=== PATIENT | female | born 1955 | race Caucasian/White ===

== ENCOUNTER → 2020-03-22 10:27 | Outpatient (BNVA) | payer MEDICARE, SELFPAY | PROVIDERS: Visit Provider Psychiatry & Neurology Psychiatry | DX: F32.9 Major depressive disorder, single episode, unspecified (principal); F06.30 Mood disorder due to known physiological condition, unspecified; F51.13 Hypersomnia due to other mental disorder; F07.89 Other personality and behavioral disorders due to known physiological condition; E53.8 Deficiency of other specified B group vitamins; K90.9 Intestinal malabsorption, unspecified; G47.00 Insomnia, unspecified; S09.90XS Unspecified injury of head, sequela; E66.9 Obesity, unspecified; F09 Unspecified mental disorder due to known physiological condition; G31.89 Other specified degenerative diseases of nervous system; S06.9X9S Unspecified intracranial injury with loss of consciousness of unspecified duration, sequela; E55.9 Vitamin D deficiency, unspecified | CPT/HCPCS: 99205 ==

== ENCOUNTER 2020-03-22 13:48 | Outpatient (CLI) | payer MEDICARE, SELFPAY ==
[2020-03-22 14:38] LABS: Basophils # 0.1 10^3/uL (0.0-0.1); Basophils % 0.6 %; Eosinophils # 0.2 10^3/uL (0.0-0.8); Eosinophils % 2.2 %; Hematocrit 43.6 % (37.0-47.0); Hemoglobin 13.1 g/dL (11.5-15.3); Lymphocytes # 2.1 10^3/uL (0.8-4.8); Lymphocytes % 23.7 %; Mean Corpuscular Volume 93.2 fL (81-99); Monocytes # 0.6 10^3/uL (0.2-0.9); Monocytes % 6.1 %; Neutrophils % 67.1 %; Nucleated Red Blood Cells % 0 %; Platelet Count 227 10^3/cmm (130-400); Red Blood Count 4.68 10^6/uL (4.1-5.3); Red Cell Distribution Width 15.9 % (12.1-15.1)
[2020-03-22 15:48] LABS: 25 Hydroxy Vitamin D 13 ng/mL (30-100); Alanine Aminotransferase 10 U/L (0-33); Albumin Level 3.8 g/dL (3.5-5.2); Alkaline Phosphatase 98 IU/L (35-105); Aspartate Amino Transferase 10 U/L (0-32); Blood Urea Nitrogen 11 mg/dL (8-23); Calcium 9.5 mg/dL (8.5-10.5); Carbon Dioxide 32 mmol/L (22-29); Chloride 101 mmol/L (98-107); Chol HDL Ratio 2.11 mg/dL (0.0-4.40); Cholesterol 120 mg/dL (0-200); Globulin 3.1 g/dL (1.3-4.6); Glomerular Filtration Rate 101.3 mL/min (90-130); Glucose 108 mg/dL (65-115); HDL Cholesterol 57 mg/dL (60-100); LDL Cholesterol Calculated 46 mg/dL (50-129); LDL HDL Ratio 0.81 RATIO (0.00-3.22); Magnesium 2.4 mg/dL (1.7-2.3); Osmolality Calculated 289 mOsm/kg (285-295); Sodium 141 mmol/L (136-145); Total Bilirubin 0.3 mg/dL (0.15-1.2); Total Protein 6.9 g/dL (6.6-8.7); Triglycerides 83 mg/dL (0-150); Vitamin B12 221 pg/mL (232-1245)
[2020-03-22 15:53] LABS: Folate Level 4.9 ng/mL (4.8-37.3)
[2020-03-22 16:53] LABS: T3 Free 2.7 PG/ML (2.0-4.4)
[2020-03-23 08:21] LABS: T3 Total 114 ng/dL (76-181)
[2020-03-23 19:01] LABS: Alcohol Metabolites NEGATIVE ng/mL (<500); Amphetamines Level NEGATIVE ng/mL (<500); Barbiturates NEGATIVE ng/mL (<300); Benzodiazepines NEGATIVE ng/mL (<100); Cocaine Metabolite NEGATIVE ng/mL (<150); Marijuana Metabolite NEGATIVE ng/mL (<20); Methadone Metabolite NEGATIVE ng/mL (<100); Opiates NEGATIVE ng/mL (<100); Oxidant NEGATIVE mcg/mL (<200); Urine pH 10.4 (4.5-9.0)
[2020-03-28 11:25] LABS: Copper Level 125 mcg/dL (70-175); Zinc Level, Serum or Plasma 64 mcg/dL (60-130)
== END 2020-03-22 13:49 | disposition home or self-care (01) ==
PROVIDERS: Visit Provider Psychiatry & Neurology Psychiatry
DX: E53.8 Deficiency of other specified B group vitamins (principal); K90.9 Intestinal malabsorption, unspecified; G47.00 Insomnia, unspecified; F51.13 Hypersomnia due to other mental disorder; F06.30 Mood disorder due to known physiological condition, unspecified; E66.9 Obesity, unspecified; F32.9 Major depressive disorder, single episode, unspecified; F09 Unspecified mental disorder due to known physiological condition; F07.89 Other personality and behavioral disorders due to known physiological condition; G31.89 Other specified degenerative diseases of nervous system; X58.XXXS Exposure to other specified factors, sequela; S06.9X9S Unspecified intracranial injury with loss of consciousness of unspecified duration, sequela
CPT/HCPCS: 36415; 80053; 80061; 80307; 82306; 82525; 82607; 82746; 83735; 84439; 84443; 84480; 84481; 84630; 85025; 99205

== ENCOUNTER → 2020-04-30 07:51 | Outpatient (BNVA) | payer MEDICARE, SELFPAY | PROVIDERS: Visit Provider Psychiatry & Neurology Psychiatry | DX: F29 Unspecified psychosis not due to a substance or known physiological condition (principal); F31.62 Bipolar disorder, current episode mixed, moderate; E61.8 Deficiency of other specified nutrient elements; F17.219 Nicotine dependence, cigarettes, with unspecified nicotine-induced disorders; E53.8 Deficiency of other specified B group vitamins; K90.9 Intestinal malabsorption, unspecified; F06.30 Mood disorder due to known physiological condition, unspecified; S09.90XS Unspecified injury of head, sequela; F51.13 Hypersomnia due to other mental disorder | CPT/HCPCS: 99215 ==

== ENCOUNTER → 2020-05-20 07:33 | Outpatient (BNVA) | payer MEDICARE, SELFPAY | PROVIDERS: Visit Provider Nurse Practitioner | DX: F63.81 Intermittent explosive disorder (principal) | CPT/HCPCS: 99204 ==

== ENCOUNTER 2020-07-25 17:28 | Emergency (ER) | payer MEDICARE, SELFPAY ==
[2020-07-25 17:29] VITALS: BP 187/117; PULSE 137; RESP 8; TEMP 37.3; O2SAT 43; BMI 51.7
[2020-07-25] MEDS: succinylcholine 20 mg/mL SDV 10mL 120 MG IVP (17:37)
--- NOTE | 2020-07-25 17:39 | XR_ITS ---
WS: [id number] Portable AP upright chest, 07/25/2020 Clinical Data: ETT Comparison: None. Findings: There is diffuse subcutaneous emphysema across the entire chest. The endotracheal tube is a jose the marie. The heart is enlarged. There are probably bilateral chest tubes. There is a right in ternal jugular venous catheter which probably ends in the superior vena cava. Pneumopericardium is pr esent. No definite pneumothorax is seen. There may be a patchy opacity in the right upper lobe adjace nt to the minor fissure but the overlying subcutaneous emphysema obscures most lung detail. Monitor l charles are on the chest wall. There are clips in the right upper quadrant from a cholecystectomy. There is a large amount of air within the stomach. XR/XR chest 1V portable [id number] Impression: 1. Diffuse subcutaneous emphysema obscures most lung detail. 2. Endotracheal tube above the marie. 3. Bilateral chest tubes and right internal jugular venous catheter.. 4. Cardiomegaly.
--- NOTE | 2020-07-25 17:40 | ECG_ITS ---
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 Measurements Intervals Jackson Rate: 97 P: 90 SD: 175 QRS: -11 QRSD: 106 T: 63 QT: 367 QTc: 467 Interpretive Statements SINUS RHYTHM LOW QRS VOLTAGE IN PRECORDIAL LEADS [QRS DEFLECTION < 1.0 mV IN CHEST LEADS] POSSIBLE ANTERIOR MYOCARDIAL INFARCTION , PROBABLY OLD [30 ms Q WAVE IN V3/V4, OR R < 0.2 mV IN V4] No previous ECG available for comparison Electronically Signed On 07-25-2020 20:23:27 CDT by Kashif Ca M.D. [id number]
--- NOTE | 2020-07-25 17:40 | PC.NURSE ---
Intubation failed x 2
--- NOTE | 2020-07-25 17:41 | PC.NURSE ---
intubated in belly, tube removed.
--- NOTE | 2020-07-25 17:45 | PC.NURSE ---
No pulse CPR started
--- NOTE | 2020-07-25 17:45 | PC.NURSE ---
intubated correctly ETT size 7 24 @ lip
[2020-07-25 18:12] LABS: Basophils # 0.1 10^3/uL (0.0-0.1); Basophils % 0.5 %; Eosinophils % 0.1 %; Hematocrit 49.8 % (37.0-47.0); Hemoglobin 14.7 g/dL (11.5-15.3); Lymphocytes # 1.1 10^3/uL (0.8-4.8); Lymphocytes % 8.5 %; Mean Corpuscular HGB Conc 29.5 g/dL (30.0-36.0); Mean Corpuscular Hemoglobin 27.4 pg (28.0-34.0); Mean Corpuscular Volume 92.9 fL (81-99); Mean Platelet Volume 10.7 fL (7.4-10.4); Monocytes # 0.9 10^3/uL (0.2-0.9); Monocytes % 6.8 %; Neutrophils # 11.16 10^3/uL (1.8-7.7); Neutrophils % 83.8 %; Nucleated Red Blood Cells % 0 %; Platelet Count 274 10^3/cmm (130-400); Red Blood Count 5.36 10^6/uL (4.1-5.3); Red Cell Distribution Width 16.6 % (12.1-15.1); White Blood Count 13.3 10^3/uL (4.0-10.0)
[2020-07-25 18:20] LABS: INR 0.95 (0.8-1.2)
[2020-07-25 18:23] LABS: D Dimer 0.86 ug/mIFEU (0-0.59)
--- NOTE | 2020-07-25 18:30 | ED_ITS ---
Documented by User: Amilcar Beth DO 07/26/20 15:22 HPI - Altered Mental Status General: Chief Complaint: Altered Mental Status Stated Complaint: AMS/Unresponsive Time Seen by Provider: 07/25/20 17:36 History of Present Illness: HPI narrative: 64-year-old female brought in unresponsive with sonorous respirations and acute respiratory failure. EMS reports patient was in laying for the last 2 weeks in bed has not been getting up has not changed her undergarments. They had been out to the house to take her and she refused and was combative family got a 96-hour hold. They returned with a 96-hour hold with the production superintendent's apartment. She became nonresponsive. On arrival here she is nonresponsive with respirations at 6 to 8/min and is in acute respiratory failure. Review of Systems General: Reports: ROS unobtainable due to endotracheal tube and ROS unobtainable due to medical condition PFS ED PFSH: Medical History Bacterial conjunctivitis of both eyes CHF (congestive heart failure) COPD (chronic obstructive pulmonary disease) Depression Generalized weakness H/O malignant neoplasm of colon Intermittent explosive Morbid obesity with body mass index (BMI) of 50.0 to 59.9 in adult Port-A-Cath in place Reports port a cath was placed 4 years ago for chemo treatment for colon cancer. It has not been accessed since that time. Skin infection Urinary and fecal incontinence Surgical History History of back surgery Status post cholecystectomy Status post colon resection Status post hysterectomy Social History Smoking and tobacco status: current every day smoker cigarettes Packs smoked per day: 1 Years cigarettes smoked: 55 [ Other cigarette details: 1 pack per day but on a bad day i'll smoke 3-4 packs per day ] Quit status (tobacco): has tried quititng Second hand smoke exposure: Yes Alcohol intake: former Former alcohol use details: She is unsure of when she quit, maybe a couple years. Physical Exam HENMT: COMMON NORMALS: normocephalic and atraumatic HEAD & SCALP: normocephalic and atraumatic Resp: EFFORT & INSPECTION: Yes respiratory distress, Yes decreased respiratory effort and Yes stridor Cardio: COMMON NORMALS: regular rate, regular rhythm and No murmurs present (Cardio) RATE: regular rate RHYTHM: regular rhythm GI: COMMON NORMALS: Soft to palpation and No hepatosplenomegaly present INSPECTION: Yes central obesity AUSCULTATION: Yes normoactive bowel sounds PALPATION: Yes Soft to palpation, No Tenderness to palpation present (GI), No Guarding due to palpation present (GI) and Yes No hepatosplenomegaly present Extremity: GENERAL: Yes clubbing and Yes cyanosis Procedures Chest Tube Chest Tube 1: Chest Tube Location: left, anterior axillary line and fifth interspace Chest Tube Prep: Yes betadine prep Incision Made With: #10 blade Post Procedure: sutured to skin and sterile dressing applied Tube Drainage: none Post Procedure CXR?: Yes Patient Tolerated Procedure: Yes Complications: tube not draining Progress: Patient had obvious subcutaneous air after placement of intubation chest tube placed with good release of air and improvement of sats. Sats began to worsen again chest tube was placed on the right with similar reaction Chest Tube 2: Chest Tube Location: right Chest Tube Prep: Yes betadine prep Incision Made With: #10 blade Post Procedure: sutured to skin and sterile dressing applied Tube Drainage: fluid Amount of initial drainage (mL): 100 Post Procedure CXR?: Yes Patient Tolerated Procedure: Yes Progress: Initially 2 chest tube placed on the left with good release of air. Patient had improvement of sats after that however continued of subcutaneous air and worsening sats chest tube placed on the right had improvement of sats and were maintained after this. Course Vital Signs: Vital signs: Vital Signs Temperature 99.2 F 07/25/20 17:29 Pulse Rate 75 07/25/20 21:37 Respiratory Rate 19 H 07/25/20 21:37 Blood Pressure 107/69 07/25/20 21:37 Pulse Oximetry 97 07/25/20 21:37 MDM - Altered Mental Status MDM Narrative: Medical decision making narrative: Care turned over to Dr. Anaya at change of shift. When patient arrived she was in respiratory failure however her jaws clamping she had a oropharyngeal airway placed and arrangements were made for RSI. RS and RSI intubation done on the first attempt unable to get the tube past the cords which were visualized. Second attempt was esophageal intubation. She was bagged in between attempts. Dr. Anaya then made an attempt with a bougie took several attempts but he was able to get the bougie in place and ultimately got the patient intubated shortly after intubation we began to get significant amount of subcutaneous air chest tubes were placed see above patient stabilized after that she had a brief time where she was pulseless was given epi and CPR had return of 6 spontaneous circulation and maintained after this Dr. Anaya took over care at change of shift and made final disposition by transfer. Lab Data: Labs: Lab Results 07/25/20 07/25/20 07/25/20 Range/Units 17:52 17:52 17:52 WBC 13.3 H (4.0-10.0) 10^3/ uL RBC 5.36 H (4.1-5.3) 10^6/u L Hgb 14.7 (11.5-15.3) g/dL Hct 49.8 H (37.0-47.0) % MCV 92.9 (81-99) fL MCH 27.4 L (28.0-34.0) pg MCHC 29.5 L (30.0-36.0) g/dL RDW 16.6 H (12.1-15.1) % Plt Count 274 (130-400) 10^3/c mm MPV 10.7 H (7.4-10.4) fL Neut % (Auto) 83.8 % Lymph % (Auto) 8.5 % Island % (Auto) 6.8 % Eos % (Auto) 0.1 % Baso % (Auto) 0.5 % Neut # (Auto) 11.16 H (1.8-7.7) 10^3/u L Lymph # (Auto) 1.1 (0.8-4.8) 10^3/u L Island # (Auto) 0.9 (0.2-0.9) 10^3/u L Eos # (Auto) 0.0 (0.0-0.8) 10^3/u L Baso # (Auto) 0.1 (0.0-0.1) 10^3/u L Nucleated RBC % (a uto) 0 % Nucleated RBCs # 0.0 /100WBC PT 13.00 (12.1-14.9) SECO NDS INR 0.95 (0.8-1.2) D-Dimer 0.86 H (0-0.59) ug/mIFE U Specimen Type Sample Site ABG pH (7.35-7.45) ABG pCO2 (35-45) mmHg ABG pO2 (80.0-100.0) mmH g ABG HCO3 (22-26) mmol/L ABG Base Excess (-2.0-2.0) mmol/ L Tyron Test Hematocrit (37-47) % O2 Delivery Device FiO2 % Thread Inspector ID Blood Gas Notified Time Sodium 137 (136-145) mmol/L Potassium 4.2 (3.5-5.1) mmol/L Chloride 99 (98-107) mmol/L Carbon Dioxide 26 (22-29) mmol/L Anion Gap 16.2 (5-19) BUN 13 (8-23) mg/dL Creatinine 0.6 (0.5-0.9) mg/dL GFR Calculation 101.3 (90-130) mL/min Glucose 196 H (65-115) mg/dL Calculated Osmolal ity 286 (285-295) mOsm/k g Lactic Acid (0.5-2.2) mmol/L Calcium 8.5 (8.5-10.5) mg/dL Magnesium 2.4 H (1.7-2.3) mg/dL Total Bilirubin 0.7 (0.15-1.2) mg/dL AST 60 H (0-32) U/L ALT 47 H (0-33) U/L Alkaline Phosphata se 104 (35-105) IU/L Ammonia (11-51) umol/L Troponin T Baselin e (0-10) ng/L Troponin T 120 Min [place] (0-10) ng/L Delta Troponin T (0-10) ABS# NT-Pro-B Natriuret Pep 2973 H (0-125) pg/mL Total Protein 7.0 (6.6-8.7) g/dL Albumin 3.8 (3.5-5.2) g/dL Globulin 3.2 (1.3-4.6) g/dL Lipase 21 (13-60) U/L Procalcitonin 0.06 (0-0.5) ng/mL Urine Color (Yellow) Urine Appearance (CLEAR) Urine pH (5-7) Ur Specific Gravit y (1.005-1.030) Urine Protein (Negative) Urine Glucose (UA) (Normal) Urine Ketones (Negative) Urine Blood (Negative) Urine Nitrate (Negative) Urine Bilirubin (Negative) Urine Urobilinogen (Negative) mg/dL Ur Leukocyte Miroslava ase (Negative) Urine RBC (0-2) /hpf Urine WBC (0-5) /hpf Ur Squamous Epith Cells (0-5) /hpf Amorphous Sediment /hpf Urine Bacteria (NONE) /hpf Hyaline Casts /lpf Fine Granular Cast s /lpf Salicylates < 0.3 L (3-10) mg/dL Urine Opiates Scre en (Negative) ng/mL Acetaminophen < 5.0 L (10-30) ug/mL Ur Barbiturates Sc reen (Negative) ng/mL Ur Phencyclidine S crn (Negative) ng/mL Ur Amphetamines Sc reen (Negative) ng/mL U Benzodiazepines Scrn (Negative) ng/mL Urine Cocaine Scre en (Negative) ng/mL U Marijuana (THC) Screen (Negative) ng/mL Ethyl Alcohol < 10 (0-10) mg/dL SARS-CoV-2 Ag (Rap id) (Negative) 07/25/20 07/25/20 07/25/20 Range/Units 17:52 18:00 18:00 WBC (4.0-10.0) 10^3/ uL RBC (4.1-5.3) 10^6/u L Hgb (11.5-15.3) g/dL Hct (37.0-47.0) % MCV (81-99) fL MCH (28.0-34.0) pg MCHC (30.0-36.0) g/dL RDW (12.1-15.1) % Plt Count (130-400) 10^3/c mm MPV (7.4-10.4) fL Neut % (Auto) % Lymph % (Auto) % Island % (Auto) % Eos % (Auto) % Baso % (Auto) % Neut # (Auto) (1.8-7.7) 10^3/u L Lymph # (Auto) (0.8-4.8) 10^3/u L Island # (Auto) (0.2-0.9) 10^3/u L Eos # (Auto) (0.0-0.8) 10^3/u L Baso # (Auto) (0.0-0.1) 10^3/u L Nucleated RBC % (a uto) % Nucleated RBCs # /100WBC PT (12.1-14.9) SECO NDS INR (0.8-1.2) D-Dimer (0-0.59) ug/mIFE U Specimen Type Arterial Sample Site Lr ABG pH 7.34 L (7.35-7.45) ABG pCO2 47.3 H (35-45) mmHg ABG pO2 61.2 L (80.0-100.0) mmH g ABG HCO3 25.3 (22-26) mmol/L ABG Base Excess -1.0 (-2.0-2.0) mmol/ L Tyron Test Pos Hematocrit 14.4 L (37-47) % O2 Delivery Device Vent FiO2 100.0 % Thread Inspector ID Ck Blood Gas Notified Time 1830 Sodium (136-145) mmol/L Potassium (3.5-5.1) mmol/L Chloride (98-107) mmol/L Carbon Dioxide (22-29) mmol/L Anion Gap (5-19) BUN (8-23) mg/dL Creatinine (0.5-0.9) mg/dL GFR Calculation (90-130) mL/min Glucose (65-115) mg/dL Calculated Osmolal ity (285-295) mOsm/k g Lactic Acid (0.5-2.2) mmol/L Calcium (8.5-10.5) mg/dL Magnesium (1.7-2.3) mg/dL Total Bilirubin (0.15-1.2) mg/dL AST (0-32) U/L ALT (0-33) U/L Alkaline Phosphata se (35-105) IU/L Ammonia (11-51) umol/L Troponin T Baselin e 57 H (0-10) ng/L Troponin T 120 Min [place] (0-10) ng/L Delta Troponin T (0-10) ABS# NT-Pro-B Natriuret Pep (0-125) pg/mL Total Protein (6.6-8.7) g/dL Albumin (3.5-5.2) g/dL Globulin (1.3-4.6) g/dL Lipase (13-60) U/L Procalcitonin (0-0.5) ng/mL Urine Color Yellow (Yellow) Urine Appearance Cloudy (CLEAR) Urine pH 5 (5-7) Ur Specific Gravit y 1.030 (1.005-1.030) Urine Protein 2+ H (Negative) Urine Glucose (UA) Norm (Normal) Urine Ketones 1+ H (Negative) Urine Blood 2+ H (Negative) Urine Nitrate Negative (Negative) Urine Bilirubin 1+ H (Negative) Urine Urobilinogen 12 H (Negative) mg/dL Ur Leukocyte Miroslava ase Negative (Negative) Urine RBC 0-4 H (0-2) /hpf Urine WBC None (0-5) /hpf Ur Squamous Epith Cells 10-15 H (0-5) /hpf Amorphous Sediment 4+ /hpf Urine Bacteria 1+ H (NONE) /hpf Hyaline Casts 10-15 H /lpf Fine Granular Cast s 0-4 H /lpf Salicylates (3-10) mg/dL Urine Opiates Scre en (Negative) ng/mL Acetaminophen (10-30) ug/mL Ur Barbiturates Sc reen (Negative) ng/mL Ur Phencyclidine S crn (Negative) ng/mL Ur Amphetamines Sc reen (Negative) ng/mL U Benzodiazepines Scrn (Negative) ng/mL Urine Cocaine Scre en (Negative) ng/mL U Marijuana (THC) Screen (Negative) ng/mL Ethyl Alcohol (0-10) mg/dL SARS-CoV-2 Ag (Rap id) (Negative) 07/25/20 07/25/20 07/25/20 Range/Units 18:05 19:54 20:20 WBC (4.0-10.0) 10^3/ uL RBC (4.1-5.3) 10^6/u L Hgb (11.5-15.3) g/dL Hct (37.0-47.0) % MCV (81-99) fL MCH (28.0-34.0) pg MCHC (30.0-36.0) g/dL RDW (12.1-15.1) % Plt Count (130-400) 10^3/c mm MPV (7.4-10.4) fL Neut % (Auto) % Lymph % (Auto) % Island % (Auto) % Eos % (Auto) % Baso % (Auto) % Neut # (Auto) (1.8-7.7) 10^3/u L Lymph # (Auto) (0.8-4.8) 10^3/u L Island # (Auto) (0.2-0.9) 10^3/u L Eos # (Auto) (0.0-0.8) 10^3/u L Baso # (Auto) (0.0-0.1) 10^3/u L Nucleated RBC % (a uto) % Nucleated RBCs # /100WBC PT (12.1-14.9) SECO NDS INR (0.8-1.2) D-Dimer (0-0.59) ug/mIFE U Specimen Type Sample Site ABG pH (7.35-7.45) ABG pCO2 (35-45) mmHg ABG pO2 (80.0-100.0) mmH g ABG HCO3 (22-26) mmol/L ABG Base Excess (-2.0-2.0) mmol/ L Tyron Test Hematocrit (37-47) % O2 Delivery Device FiO2 % Thread Inspector ID Blood Gas Notified Time Sodium (136-145) mmol/L Potassium (3.5-5.1) mmol/L Chloride (98-107) mmol/L Carbon Dioxide (22-29) mmol/L Anion Gap (5-19) BUN (8-23) mg/dL Creatinine (0.5-0.9) mg/dL GFR Calculation (90-130) mL/min Glucose (65-115) mg/dL Calculated Osmolal ity (285-295) mOsm/k g Lactic Acid (0.5-2.2) mmol/L Calcium (8.5-10.5) mg/dL Magnesium (1.7-2.3) mg/dL Total Bilirubin (0.15-1.2) mg/dL AST (0-32) U/L ALT (0-33) U/L Alkaline Phosphata se (35-105) IU/L Ammonia 53 H (11-51) umol/L Troponin T Baselin e (0-10) ng/L Troponin T 120 Min [place] (0-10) ng/L Delta Troponin T (0-10) ABS# NT-Pro-B Natriuret Pep (0-125) pg/mL Total Protein (6.6-8.7) g/dL Albumin (3.5-5.2) g/dL Globulin (1.3-4.6) g/dL Lipase (13-60) U/L Procalcitonin (0-0.5) ng/mL Urine Color (Yellow) Urine Appearance (CLEAR) Urine pH (5-7) Ur Specific Gravit y (1.005-1.030) Urine Protein (Negative) Urine Glucose (UA) (Normal) Urine Ketones (Negative) Urine Blood (Negative) Urine Nitrate (Negative) Urine Bilirubin (Negative) Urine Urobilinogen (Negative) mg/dL Ur Leukocyte Miroslava ase (Negative) Urine RBC (0-2) /hpf Urine WBC (0-5) /hpf Ur Squamous Epith Cells (0-5) /hpf Amorphous Sediment /hpf Urine Bacteria (NONE) /hpf Hyaline Casts /lpf Fine Granular Cast s /lpf Salicylates (3-10) mg/dL Urine Opiates Scre en Negative (Negative) ng/mL Acetaminophen (10-30) ug/mL Ur Barbiturates Sc reen Negative (Negative) ng/mL Ur Phencyclidine S crn Negative (Negative) ng/mL Ur Amphetamines Sc reen Negative (Negative) ng/mL U Benzodiazepines Scrn Negative (Negative) ng/mL Urine Cocaine Scre en Negative (Negative) ng/mL U Marijuana (THC) Screen Negative (Negative) ng/mL Ethyl Alcohol (0-10) mg/dL SARS-CoV-2 Ag (Rap id) Negative (Negative) 07/25/20 07/25/20 Range/Units 20:20 20:20 WBC (4.0-10.0) 10^3/ uL RBC (4.1-5.3) 10^6/u L Hgb (11.5-15.3) g/dL Hct (37.0-47.0) % MCV (81-99) fL MCH (28.0-34.0) pg MCHC (30.0-36.0) g/dL RDW (12.1-15.1) % Plt Count (130-400) 10^3/c mm MPV (7.4-10.4) fL Neut % (Auto) % Lymph % (Auto) % Island % (Auto) % Eos % (Auto) % Baso % (Auto) % Neut # (Auto) (1.8-7.7) 10^3/u L Lymph # (Auto) (0.8-4.8) 10^3/u L Island # (Auto) (0.2-0.9) 10^3/u L Eos # (Auto) (0.0-0.8) 10^3/u L Baso # (Auto) (0.0-0.1) 10^3/u L Nucleated RBC % (a uto) % Nucleated RBCs # /100WBC PT (12.1-14.9) SECO NDS INR (0.8-1.2) D-Dimer (0-0.59) ug/mIFE U Specimen Type Sample Site ABG pH (7.35-7.45) ABG pCO2 (35-45) mmHg ABG pO2 (80.0-100.0) mmH g ABG HCO3 (22-26) mmol/L ABG Base Excess (-2.0-2.0) mmol/ L Tyron Test Hematocrit (37-47) % O2 Delivery Device FiO2 % Thread Inspector ID Blood Gas Notified Time Sodium (136-145) mmol/L Potassium (3.5-5.1) mmol/L Chloride (98-107) mmol/L Carbon Dioxide (22-29) mmol/L Anion Gap (5-19) BUN (8-23) mg/dL Creatinine (0.5-0.9) mg/dL GFR Calculation (90-130) mL/min Glucose (65-115) mg/dL Calculated Osmolal ity (285-295) mOsm/k g Lactic Acid 1.9 (0.5-2.2) mmol/L Calcium (8.5-10.5) mg/dL Magnesium (1.7-2.3) mg/dL Total Bilirubin (0.15-1.2) mg/dL AST (0-32) U/L ALT (0-33) U/L Alkaline Phosphata se (35-105) IU/L Ammonia (11-51) umol/L Troponin T Baselin e (0-10) ng/L Troponin T 120 Min [place] 78.70 H (0-10) ng/L Delta Troponin T 21.70 H* (0-10) ABS# NT-Pro-B Natriuret Pep (0-125) pg/mL Total Protein (6.6-8.7) g/dL Albumin (3.5-5.2) g/dL Globulin (1.3-4.6) g/dL Lipase (13-60) U/L Procalcitonin (0-0.5) ng/mL Urine Color (Yellow) Urine Appearance (CLEAR) Urine pH (5-7) Ur Specific Gravit y (1.005-1.030) Urine Protein (Negative) Urine Glucose (UA) (Normal) Urine Ketones (Negative) Urine Blood (Negative) Urine Nitrate (Negative) Urine Bilirubin (Negative) Urine Urobilinogen (Negative) mg/dL Ur Leukocyte Miroslava ase (Negative) Urine RBC (0-2) /hpf Urine WBC (0-5) /hpf Ur Squamous Epith Cells (0-5) /hpf Amorphous Sediment /hpf Urine Bacteria (NONE) /hpf Hyaline Casts /lpf Fine Granular Cast s /lpf Salicylates (3-10) mg/dL Urine Opiates Scre en (Negative) ng/mL Acetaminophen (10-30) ug/mL Ur Barbiturates Sc reen (Negative) ng/mL Ur Phencyclidine S crn (Negative) ng/mL Ur Amphetamines Sc reen (Negative) ng/mL U Benzodiazepines Scrn (Negative) ng/mL Urine Cocaine Scre en (Negative) ng/mL U Marijuana (THC) Screen (Negative) ng/mL Ethyl Alcohol (0-10) mg/dL SARS-CoV-2 Ag (Rap id) (Negative) Discharge Plan Discharge Patient Disposition: Xfer Other Clinical Impression: Respiratory failure Qualifiers: Chronicity: acute Respiratory failure complication: hypoxia Qualified Code(s): J96.01 - Acute respiratory failure with hypoxia Pneumothorax Qualifiers: Pneumothorax type: unspecified pneumothorax Qualified Code(s): J93.9 - Pneumothorax, unspecified Condition: Stable Discharge Date/Time: 07/25/20 22:36 Coding Level of Care Code ED Home [employer]ashing [employer] 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[employer] for [facility] Fwd Exam Detailed Documented by User: Tyree Anaya MD 07/25/20 21:18 HPI - Altered Mental Status General: Chief Complaint: Altered Mental Status Stated Complaint: AMS/Unresponsive Time Seen by Provider: 07/25/20 17:36 PFSH ED PFSH: Medical History Bacterial conjunctivitis of both eyes CHF (congestive heart failure) COPD (chronic obstructive pulmonary disease) Depression Generalized weakness H/O malignant neoplasm of colon Intermittent explosive Morbid obesity with body mass index (BMI) of 50.0 to 59.9 in adult Port-A-Cath in place Reports port a cath was placed 4 years ago for chemo treatment for colon cancer. It has not been accessed since that time. Skin infection Urinary and fecal incontinence Surgical History History of back surgery Status post cholecystectomy Status post colon resection Status post hysterectomy Social History Smoking and tobacco status: current every day smoker cigarettes Packs smoked per day: 1 Years cigarettes smoked: 55 [ Other cigarette details: 1 pack per day but on a bad day i'll smoke 3-4 packs per day ] Quit status (tobacco): has tried quititng Second hand smoke exposure: Yes Alcohol intake: former Former alcohol use details: She is unsure of when she quit, maybe a couple years. Procedures Intubation Assist Device Used: fiber optic device ET Tube Size: 7 ET Tube Uncuffed: Yes Tube Secured Depth (cm): 25 Tube Secured Location: teeth Tube Placement Confirmation: visualized tube passing through cords and no breath sounds over epigastrium Additional Comments: Took multiple attempts to get intubation. Patient did desaturate. Had to use a bougie and was able to get it with bougie and then a 7 oh tube over the bougie. Course Vital Signs: Vital signs: Vital Signs Temperature 99.2 F 07/25/20 17:29 Pulse Rate 75 07/25/20 21:37 Respiratory Rate 19 H 07/25/20 21:37 Blood Pressure 107/69 07/25/20 21:37 Pulse Oximetry 97 07/25/20 21:37 MDM - Altered Mental Status MDM Narrative: Medical decision making narrative: Patient presents here with respiratory failure. I took patient over from Dr. James. Patient was a very difficult intubation that required multiple attempts. Patient did arrive hypoxic. She suffered 2 pneumothorax is likely from cardiac compressions Dr. Yeung placed 2 chest tubes. Patient has been stable here on propofol drip with normal vitals. Spoke to [facility] and will transfer there due to ICU availability. Lab Data: Labs: Lab Results 07/25/20 07/25/20 07/25/20 Range/Units 17:52 17:52 17:52 WBC 13.3 H (4.0-10.0) 10^3/ uL RBC 5.36 H (4.1-5.3) 10^6/u L Hgb 14.7 (11.5-15.3) g/dL Hct 49.8 H (37.0-47.0) % MCV 92.9 (81-99) fL MCH 27.4 L (28.0-34.0) pg MCHC 29.5 L (30.0-36.0) g/dL RDW 16.6 H (12.1-15.1) % Plt Count 274 (130-400) 10^3/c mm MPV 10.7 H (7.4-10.4) fL Neut % (Auto) 83.8 % Lymph % (Auto) 8.5 % Island % (Auto) 6.8 % Eos % (Auto) 0.1 % Baso % (Auto) 0.5 % Neut # (Auto) 11.16 H (1.8-7.7) 10^3/u L Lymph # (Auto) 1.1 (0.8-4.8) 10^3/u L Island # (Auto) 0.9 (0.2-0.9) 10^3/u L Eos # (Auto) 0.0 (0.0-0.8) 10^3/u L Baso # (Auto) 0.1 (0.0-0.1) 10^3/u L Nucleated RBC % (a uto) 0 % Nucleated RBCs # 0.0 /100WBC PT 13.00 (12.1-14.9) SECO NDS INR 0.95 (0.8-1.2) D-Dimer 0.86 H (0-0.59) ug/mIFE U Specimen Type Sample Site ABG pH (7.35-7.45) ABG pCO2 (35-45) mmHg ABG pO2 (80.0-100.0) mmH g ABG HCO3 (22-26) mmol/L ABG Base Excess (-2.0-2.0) mmol/ L Tyron Test Hematocrit (37-47) % O2 Delivery Device FiO2 % Thread Inspector ID Blood Gas Notified Time Sodium 137 (136-145) mmol/L Potassium 4.2 (3.5-5.1) mmol/L Chloride 99 (98-107) mmol/L Carbon Dioxide 26 (22-29) mmol/L Anion Gap 16.2 (5-19) BUN 13 (8-23) mg/dL Creatinine 0.6 (0.5-0.9) mg/dL GFR Calculation 101.3 (90-130) mL/min Glucose 196 H (65-115) mg/dL Calculated Osmolal ity 286 (285-295) mOsm/k g Lactic Acid (0.5-2.2) mmol/L Calcium 8.5 (8.5-10.5) mg/dL Magnesium 2.4 H (1.7-2.3) mg/dL Total Bilirubin 0.7 (0.15-1.2) mg/dL AST 60 H (0-32) U/L ALT 47 H (0-33) U/L Alkaline Phosphata se 104 (35-105) IU/L Ammonia (11-51) umol/L Troponin T Baselin e (0-10) ng/L Troponin T 120 Min [place] (0-10) ng/L Delta Troponin T (0-10) ABS# NT-Pro-B Natriuret Pep 2973 H (0-125) pg/mL Total Protein 7.0 (6.6-8.7) g/dL Albumin 3.8 (3.5-5.2) g/dL Globulin 3.2 (1.3-4.6) g/dL Lipase 21 (13-60) U/L Procalcitonin 0.06 (0-0.5) ng/mL Urine Color (Yellow) Urine Appearance (CLEAR) Urine pH (5-7) Ur Specific Gravit y (1.005-1.030) Urine Protein (Negative) Urine Glucose (UA) (Normal) Urine Ketones (Negative) Urine Blood (Negative) Urine Nitrate (Negative) Urine Bilirubin (Negative) Urine Urobilinogen (Negative) mg/dL Ur Leukocyte Miroslava ase (Negative) Urine RBC (0-2) /hpf Urine WBC (0-5) /hpf Ur Squamous Epith Cells (0-5) /hpf Amorphous Sediment /hpf Urine Bacteria (NONE) /hpf Hyaline Casts /lpf Fine Granular Cast s /lpf Salicylates < 0.3 L (3-10) mg/dL Urine Opiates Scre en (Negative) ng/mL Acetaminophen < 5.0 L (10-30) ug/mL Ur Barbiturates Sc reen (Negative) ng/mL Ur Phencyclidine S crn (Negative) ng/mL Ur Amphetamines Sc reen (Negative) ng/mL U Benzodiazepines Scrn (Negative) ng/mL Urine Cocaine Scre en (Negative) ng/mL U Marijuana (THC) Screen (Negative) ng/mL Ethyl Alcohol < 10 (0-10) mg/dL SARS-CoV-2 Ag (Rap id) (Negative) 07/25/20 07/25/20 07/25/20 Range/Units 17:52 18:00 18:00 WBC (4.0-10.0) 10^3/ uL RBC (4.1-5.3) 10^6/u L Hgb (11.5-15.3) g/dL Hct (37.0-47.0) % MCV (81-99) fL MCH (28.0-34.0) pg MCHC (30.0-36.0) g/dL RDW (12.1-15.1) % Plt Count (130-400) 10^3/c mm MPV (7.4-10.4) fL Neut % (Auto) % Lymph % (Auto) % Island % (Auto) % Eos % (Auto) % Baso % (Auto) % Neut # (Auto) (1.8-7.7) 10^3/u L Lymph # (Auto) (0.8-4.8) 10^3/u L Island # (Auto) (0.2-0.9) 10^3/u L Eos # (Auto) (0.0-0.8) 10^3/u L Baso # (Auto) (0.0-0.1) 10^3/u L Nucleated RBC % (a uto) % Nucleated RBCs # /100WBC PT (12.1-14.9) SECO NDS INR (0.8-1.2) D-Dimer (0-0.59) ug/mIFE U Specimen Type Arterial Sample Site Lr ABG pH 7.34 L (7.35-7.45) ABG pCO2 47.3 H (35-45) mmHg ABG pO2 61.2 L (80.0-100.0) mmH g ABG HCO3 25.3 (22-26) mmol/L ABG Base Excess -1.0 (-2.0-2.0) mmol/ L Tyron Test Pos Hematocrit 14.4 L (37-47) % O2 Delivery Device Vent FiO2 100.0 % Thread Inspector ID [id number] Blood Gas Notified Time 1830 Sodium (136-145) mmol/L Potassium (3.5-5.1) mmol/L Chloride (98-107) mmol/L Carbon Dioxide (22-29) mmol/L Anion Gap (5-19) BUN (8-23) mg/dL Creatinine (0.5-0.9) mg/dL GFR Calculation (90-130) mL/min Glucose (65-115) mg/dL Calculated Osmolal ity (285-295) mOsm/k g Lactic Acid (0.5-2.2) mmol/L Calcium (8.5-10.5) mg/dL Magnesium (1.7-2.3) mg/dL Total Bilirubin (0.15-1.2) mg/dL AST (0-32) U/L ALT (0-33) U/L Alkaline Phosphata se (35-105) IU/L Ammonia (11-51) umol/L Troponin T Baselin e 57 H (0-10) ng/L Troponin T 120 Min [place] (0-10) ng/L Delta Troponin T (0-10) ABS# NT-Pro-B Natriuret Pep (0-125) pg/mL Total Protein (6.6-8.7) g/dL Albumin (3.5-5.2) g/dL Globulin (1.3-4.6) g/dL Lipase (13-60) U/L Procalcitonin (0-0.5) ng/mL Urine Color Yellow (Yellow) Urine Appearance Cloudy (CLEAR) Urine pH 5 (5-7) Ur Specific Gravit y 1.030 (1.005-1.030) Urine Protein 2+ H (Negative) Urine Glucose (UA) Norm (Normal) Urine Ketones 1+ H (Negative) Urine Blood 2+ H (Negative) Urine Nitrate Negative (Negative) Urine Bilirubin 1+ H (Negative) Urine Urobilinogen 12 H (Negative) mg/dL Ur Leukocyte [place] ase Negative (Negative) Urine RBC 0-4 H (0-2) /hpf Urine WBC None (0-5) /hpf Ur Squamous Epith Cells 10-15 H (0-5) /hpf Amorphous Sediment 4+ /hpf Urine Bacteria 1+ H (NONE) /hpf Hyaline Casts 10-15 H /lpf Fine Granular Cast s 0-4 H /lpf Salicylates (3-10) mg/dL Urine Opiates Scre en (Negative) ng/mL Acetaminophen (10-30) ug/mL Ur Barbiturates Sc reen (Negative) ng/mL Ur Phencyclidine S crn (Negative) ng/mL Ur Amphetamines Sc reen (Negative) ng/mL U Benzodiazepines Scrn (Negative) ng/mL Urine Cocaine Scre en (Negative) ng/mL U Marijuana (THC) Screen (Negative) ng/mL Ethyl Alcohol (0-10) mg/dL SARS-CoV-2 Ag (Rap id) (Negative) 07/25/20 07/25/20 07/25/20 Range/Units 18:05 19:54 20:20 WBC (4.0-10.0) 10^3/ uL RBC (4.1-5.3) 10^6/u L Hgb (11.5-15.3) g/dL Hct (37.0-47.0) % MCV (81-99) fL MCH (28.0-34.0) pg MCHC (30.0-36.0) g/dL RDW (12.1-15.1) % Plt Count (130-400) 10^3/c mm MPV (7.4-10.4) fL Neut % (Auto) % Lymph % (Auto) % Island % (Auto) % Eos % (Auto) % Baso % (Auto) % Neut # (Auto) (1.8-7.7) 10^3/u L Lymph # (Auto) (0.8-4.8) 10^3/u L Island # (Auto) (0.2-0.9) 10^3/u L Eos # (Auto) (0.0-0.8) 10^3/u L Baso # (Auto) (0.0-0.1) 10^3/u L Nucleated RBC % (a uto) % Nucleated RBCs # /100WBC PT (12.1-14.9) SECO NDS INR (0.8-1.2) D-Dimer (0-0.59) ug/mIFE U Specimen Type Sample Site ABG pH (7.35-7.45) ABG pCO2 (35-45) mmHg ABG pO2 (80.0-100.0) mmH g ABG HCO3 (22-26) mmol/L ABG Base Excess (-2.0-2.0) mmol/ L Tyron Test Hematocrit (37-47) % O2 Delivery Device FiO2 % Thread Inspector ID Blood Gas Notified Time Sodium (136-145) mmol/L Potassium (3.5-5.1) mmol/L Chloride (98-107) mmol/L Carbon Dioxide (22-29) mmol/L Anion Gap (5-19) BUN (8-23) mg/dL Creatinine (0.5-0.9) mg/dL GFR Calculation (90-130) mL/min Glucose (65-115) mg/dL Calculated Osmolal ity (285-295) mOsm/k g Lactic Acid (0.5-2.2) mmol/L Calcium (8.5-10.5) mg/dL Magnesium (1.7-2.3) mg/dL Total Bilirubin (0.15-1.2) mg/dL AST (0-32) U/L ALT (0-33) U/L Alkaline Phosphata se (35-105) IU/L Ammonia 53 H (11-51) umol/L Troponin T Baselin e (0-10) ng/L Troponin T 120 Min [place] (0-10) ng/L Delta Troponin T (0-10) ABS# NT-Pro-B Natriuret Pep (0-125) pg/mL Total Protein (6.6-8.7) g/dL Albumin (3.5-5.2) g/dL Globulin (1.3-4.6) g/dL Lipase (13-60) U/L Procalcitonin (0-0.5) ng/mL Urine Color (Yellow) Urine Appearance (CLEAR) Urine pH (5-7) Ur Specific Gravit y (1.005-1.030) Urine Protein (Negative) Urine Glucose (UA) (Normal) Urine Ketones (Negative) Urine Blood (Negative) Urine Nitrate (Negative) Urine Bilirubin (Negative) Urine Urobilinogen (Negative) mg/dL Ur Leukocyte Miroslava ase (Negative) Urine RBC (0-2) /hpf Urine WBC (0-5) /hpf Ur Squamous Epith Cells (0-5) /hpf Amorphous Sediment /hpf Urine Bacteria (NONE) /hpf Hyaline Casts /lpf Fine Granular Cast s /lpf Salicylates (3-10) mg/dL Urine Opiates Scre en Negative (Negative) ng/mL Acetaminophen (10-30) ug/mL Ur Barbiturates Sc reen Negative (Negative) ng/mL Ur Phencyclidine S crn Negative (Negative) ng/mL Ur Amphetamines Sc reen Negative (Negative) ng/mL U Benzodiazepines Scrn Negative (Negative) ng/mL Urine Cocaine Scre en Negative (Negative) ng/mL U Marijuana (THC) Screen Negative (Negative) ng/mL Ethyl Alcohol (0-10) mg/dL SARS-CoV-2 Ag (Rap id) Negative (Negative) 07/25/20 07/25/20 Range/Units 20:20 20:20 WBC (4.0-10.0) 10^3/ uL RBC (4.1-5.3) 10^6/u L Hgb (11.5-15.3) g/dL Hct (37.0-47.0) % MCV (81-99) fL MCH (28.0-34.0) pg MCHC (30.0-36.0) g/dL RDW (12.1-15.1) % Plt Count (130-400) 10^3/c mm MPV (7.4-10.4) fL Neut % (Auto) % Lymph % (Auto) % Island % (Auto) % Eos % (Auto) % Baso % (Auto) % Neut # (Auto) (1.8-7.7) 10^3/u L Lymph # (Auto) (0.8-4.8) 10^3/u L Island # (Auto) (0.2-0.9) 10^3/u L Eos # (Auto) (0.0-0.8) 10^3/u L Baso # (Auto) (0.0-0.1) 10^3/u L Nucleated RBC % (a uto) % Nucleated RBCs # /100WBC PT (12.1-14.9) SECO NDS INR (0.8-1.2) D-Dimer (0-0.59) ug/mIFE U Specimen Type Sample Site ABG pH (7.35-7.45) ABG pCO2 (35-45) mmHg ABG pO2 (80.0-100.0) mmH g ABG HCO3 (22-26) mmol/L ABG Base Excess (-2.0-2.0) mmol/ L Tyron Test Hematocrit (37-47) % O2 Delivery Device FiO2 % Thread Inspector ID Blood Gas Notified Time Sodium (136-145) mmol/L Potassium (3.5-5.1) mmol/L Chloride (98-107) mmol/L Carbon Dioxide (22-29) mmol/L Anion Gap (5-19) BUN (8-23) mg/dL Creatinine (0.5-0.9) mg/dL GFR Calculation (90-130) mL/min Glucose (65-115) mg/dL Calculated Osmolal ity (285-295) mOsm/k g Lactic Acid 1.9 (0.5-2.2) mmol/L Calcium (8.5-10.5) mg/dL Magnesium (1.7-2.3) mg/dL Total Bilirubin (0.15-1.2) mg/dL AST (0-32) U/L ALT (0-33) U/L Alkaline Phosphata se (35-105) IU/L Ammonia (11-51) umol/L Troponin T Baselin e (0-10) ng/L Troponin T 120 Min [place] 78.70 H (0-10) ng/L Delta Troponin T 21.70 H* (0-10) ABS# NT-Pro-B Natriuret Pep (0-125) pg/mL Total Protein (6.6-8.7) g/dL Albumin (3.5-5.2) g/dL Globulin (1.3-4.6) g/dL Lipase (13-60) U/L Procalcitonin (0-0.5) ng/mL Urine Color (Yellow) Urine Appearance (CLEAR) Urine pH (5-7) Ur Specific Gravit y (1.005-1.030) Urine Protein (Negative) Urine Glucose (UA) (Normal) Urine Ketones (Negative) Urine Blood (Negative) Urine Nitrate (Negative) Urine Bilirubin (Negative) Urine Urobilinogen (Negative) mg/dL Ur Leukocyte Miroslava ase (Negative) Urine RBC (0-2) /hpf Urine WBC (0-5) /hpf Ur Squamous Epith Cells (0-5) /hpf Amorphous Sediment /hpf Urine Bacteria (NONE) /hpf Hyaline Casts /lpf Fine Granular Cast s /lpf Salicylates (3-10) mg/dL Urine Opiates Scre en (Negative) ng/mL Acetaminophen (10-30) ug/mL Ur Barbiturates Sc reen (Negative) ng/mL Ur Phencyclidine S crn (Negative) ng/mL Ur Amphetamines Sc reen (Negative) ng/mL U Benzodiazepines Scrn (Negative) ng/mL Urine Cocaine Scre en (Negative) ng/mL U Marijuana (THC) Screen (Negative) ng/mL Ethyl Alcohol (0-10) mg/dL SARS-CoV-2 Ag (Rap id) (Negative) Critical Care Time 2 Critical Care Time: Critical Care Time: Yes Total Critical Care Time: 35 Attestation: This case had a high probability of a clinically significant, sudden, or life threatening deterioration of this patient's condition which required my full and direct attention, intervention and personal management. Discharge Plan Discharge Patient Disposition: Xfer Other Clinical Impression: Respiratory failure Qualifiers: Chronicity: acute Respiratory failure complication: hypoxia Qualified Code(s): J96.01 - Acute respiratory failure with hypoxia Pneumothorax Qualifiers: Pneumothorax type: unspecified pneumothorax Qualified Code(s): J93.9 - Pneumothorax, unspecified Condition: Stable Discharge Date/Time: 07/25/20 22:36 Coding Level of Care Code ED Home Appliance Washing Machine Mechanic for Chg Fwd Exam Detailed Documented by User: Judi Huerta MD 07/28/20 06:15 HPI - Altered Mental Status General: Chief Complaint: Altered Mental Status Stated Complaint: AMS/Unresponsive Time Seen by Provider: 07/25/20 17:36 PFSH ED PFSH: Medical History Bacterial conjunctivitis of both eyes CHF (congestive heart failure) COPD (chronic obstructive pulmonary disease) Depression Generalized weakness H/O malignant neoplasm of colon Intermittent explosive Morbid obesity with body mass index (BMI) of 50.0 to 59.9 in adult Port-A-Cath in place Reports port a cath was placed 4 years ago for chemo treatment for colon cancer. It has not been accessed since that time. Skin infection Urinary and fecal incontinence Surgical History History of back surgery Status post cholecystectomy Status post colon resection Status post hysterectomy Social History Smoking and tobacco status: current every day smoker cigarettes Packs smoked per day: 1 Years cigarettes smoked: 55 [ Other cigarette details: 1 pack per day but on a bad day i'll smoke 3-4 packs per day ] Quit status (tobacco): has tried quititng Second hand smoke exposure: Yes Alcohol intake: former Former alcohol use details: She is unsure of when she quit, maybe a couple years. Procedures Central Line Placement Right Femoral: Time Out Performed: Yes Patient Placed on Monitor/Pulse Ox: Yes Prep: mask and gown Central Line Prep: Chlorhexidine scrub Ultrasound Used for Placement: No Central Line Lumen Inserted: triple Post Procedure: sutured in place, good blood return, all ports aspirated, flushed, capped and sterile dressing applied Patient Tolerated Procedure: well Complications: none Course Vital Signs: Vital signs: Vital Signs Temperature 99.2 F 07/25/20 17:29 Pulse Rate 75 07/25/20 21:37 Respiratory Rate 19 H 07/25/20 21:37 Blood Pressure 107/69 07/25/20 21:37 Pulse Oximetry 97 07/25/20 21:37 MDM - Altered Mental Status Lab Data: Labs: Lab Results 07/25/20 07/25/20 07/25/20 Range/Units 17:52 17:52 17:52 WBC 13.3 H (4.0-10.0) 10^3/ uL RBC 5.36 H (4.1-5.3) 10^6/u L Hgb 14.7 (11.5-15.3) g/dL Hct 49.8 H (37.0-47.0) % MCV 92.9 (81-99) fL MCH 27.4 L (28.0-34.0) pg MCHC 29.5 L (30.0-36.0) g/dL RDW 16.6 H (12.1-15.1) % Plt Count 274 (130-400) 10^3/c mm MPV 10.7 H (7.4-10.4) fL Neut % (Auto) 83.8 % Lymph % (Auto) 8.5 % Island % (Auto) 6.8 % Eos % (Auto) 0.1 % Baso % (Auto) 0.5 % Neut # (Auto) 11.16 H (1.8-7.7) 10^3/u L Lymph # (Auto) 1.1 (0.8-4.8) 10^3/u L Island # (Auto) 0.9 (0.2-0.9) 10^3/u L Eos # (Auto) 0.0 (0.0-0.8) 10^3/u L Baso # (Auto) 0.1 (0.0-0.1) 10^3/u L Nucleated RBC % (a uto) 0 % Nucleated RBCs # 0.0 /100WBC PT 13.00 (12.1-14.9) SECO NDS INR 0.95 (0.8-1.2) D-Dimer 0.86 H (0-0.59) ug/mIFE U Specimen Type Sample Site ABG pH (7.35-7.45) ABG pCO2 (35-45) mmHg ABG pO2 (80.0-100.0) mmH g ABG HCO3 (22-26) mmol/L ABG Base Excess (-2.0-2.0) mmol/ L Tyron Test Hematocrit (37-47) % O2 Delivery Device FiO2 % Thread Inspector ID Blood Gas Notified Time Sodium 137 (136-145) mmol/L Potassium 4.2 (3.5-5.1) mmol/L Chloride 99 (98-107) mmol/L Carbon Dioxide 26 (22-29) mmol/L Anion Gap 16.2 (5-19) BUN 13 (8-23) mg/dL Creatinine 0.6 (0.5-0.9) mg/dL GFR Calculation 101.3 (90-130) mL/min Glucose 196 H (65-115) mg/dL Calculated Osmolal ity 286 (285-295) mOsm/k g Lactic Acid (0.5-2.2) mmol/L Calcium 8.5 (8.5-10.5) mg/dL Magnesium 2.4 H (1.7-2.3) mg/dL Total Bilirubin 0.7 (0.15-1.2) mg/dL AST 60 H (0-32) U/L ALT 47 H (0-33) U/L Alkaline Phosphata se 104 (35-105) IU/L Ammonia (11-51) umol/L Troponin T Baselin e (0-10) ng/L Troponin T 120 Min [place] (0-10) ng/L Delta Troponin T (0-10) ABS# NT-Pro-B Natriuret Pep 2973 H (0-125) pg/mL Total Protein 7.0 (6.6-8.7) g/dL Albumin 3.8 (3.5-5.2) g/dL Globulin 3.2 (1.3-4.6) g/dL Lipase 21 (13-60) U/L Procalcitonin 0.06 (0-0.5) ng/mL Urine Color (Yellow) Urine Appearance (CLEAR) Urine pH (5-7) Ur Specific Gravit y (1.005-1.030) Urine Protein (Negative) Urine Glucose (UA) (Normal) Urine Ketones (Negative) Urine Blood (Negative) Urine Nitrate (Negative) Urine Bilirubin (Negative) Urine Urobilinogen (Negative) mg/dL Ur Leukocyte Miroslava ase (Negative) Urine RBC (0-2) /hpf Urine WBC (0-5) /hpf Ur Squamous Epith Cells (0-5) /hpf Amorphous Sediment /hpf Urine Bacteria (NONE) /hpf Hyaline Casts /lpf Fine Granular Cast s /lpf Salicylates < 0.3 L (3-10) mg/dL Urine Opiates Scre en (Negative) ng/mL Acetaminophen < 5.0 L (10-30) ug/mL Ur Barbiturates Sc reen (Negative) ng/mL Ur Phencyclidine S crn (Negative) ng/mL Ur Amphetamines Sc reen (Negative) ng/mL U Benzodiazepines Scrn (Negative) ng/mL Urine Cocaine Scre en (Negative) ng/mL U Marijuana (THC) Screen (Negative) ng/mL Ethyl Alcohol < 10 (0-10) mg/dL SARS-CoV-2 Ag (Rap id) (Negative) 07/25/20 07/25/20 07/25/20 Range/Units 17:52 18:00 18:00 WBC (4.0-10.0) 10^3/ uL RBC (4.1-5.3) 10^6/u L Hgb (11.5-15.3) g/dL Hct (37.0-47.0) % MCV (81-99) fL MCH (28.0-34.0) pg MCHC (30.0-36.0) g/dL RDW (12.1-15.1) % Plt Count (130-400) 10^3/c mm MPV (7.4-10.4) fL Neut % (Auto) % Lymph % (Auto) % Island % (Auto) % Eos % (Auto) % Baso % (Auto) % Neut # (Auto) (1.8-7.7) 10^3/u L Lymph # (Auto) (0.8-4.8) 10^3/u L Island # (Auto) (0.2-0.9) 10^3/u L Eos # (Auto) (0.0-0.8) 10^3/u L Baso # (Auto) (0.0-0.1) 10^3/u L Nucleated RBC % (a uto) % Nucleated RBCs # /100WBC PT (12.1-14.9) SECO NDS INR (0.8-1.2) D-Dimer (0-0.59) ug/mIFE U Specimen Type Arterial Sample Site Lr ABG pH 7.34 L (7.35-7.45) ABG pCO2 47.3 H (35-45) mmHg ABG pO2 61.2 L (80.0-100.0) mmH g ABG HCO3 25.3 (22-26) mmol/L ABG Base Excess -1.0 (-2.0-2.0) mmol/ L Tyron Test Pos Hematocrit 14.4 L (37-47) % O2 Delivery Device Vent FiO2 100.0 % Thread Inspector ID Ck Blood Gas Notified Time 1830 Sodium (136-145) mmol/L Potassium (3.5-5.1) mmol/L Chloride (98-107) mmol/L Carbon Dioxide (22-29) mmol/L Anion Gap (5-19) BUN (8-23) mg/dL Creatinine (0.5-0.9) mg/dL GFR Calculation (90-130) mL/min Glucose (65-115) mg/dL Calculated Osmolal ity (285-295) mOsm/k g Lactic Acid (0.5-2.2) mmol/L Calcium (8.5-10.5) mg/dL Magnesium (1.7-2.3) mg/dL Total Bilirubin (0.15-1.2) mg/dL AST (0-32) U/L ALT (0-33) U/L Alkaline Phosphata se (35-105) IU/L Ammonia (11-51) umol/L Troponin T Baselin e 57 H (0-10) ng/L Troponin T 120 Min [place] (0-10) ng/L Delta Troponin T (0-10) ABS# NT-Pro-B Natriuret Pep (0-125) pg/mL Total Protein (6.6-8.7) g/dL Albumin (3.5-5.2) g/dL Globulin (1.3-4.6) g/dL Lipase (13-60) U/L Procalcitonin (0-0.5) ng/mL Urine Color Yellow (Yellow) Urine Appearance Cloudy (CLEAR) Urine pH 5 (5-7) Ur Specific Gravit y 1.030 (1.005-1.030) Urine Protein 2+ H (Negative) Urine Glucose (UA) Norm (Normal) Urine Ketones 1+ H (Negative) Urine Blood 2+ H (Negative) Urine Nitrate Negative (Negative) Urine Bilirubin 1+ H (Negative) Urine Urobilinogen 12 H (Negative) mg/dL Ur Leukocyte Mirosl[place] ase Negative (Negative) Urine RBC 0-4 H (0-2) /hpf Urine WBC None (0-5) /hpf Ur Squamous Epith Cells 10-15 H (0-5) /hpf Amorphous Sediment 4+ /hpf Urine Bacteria 1+ H (NONE) /hpf Hyaline Casts 10-15 H /lpf Fine Granular Cast s 0-4 H /lpf Salicylates (3-10) mg/dL Urine Opiates Scre en (Negative) ng/mL Acetaminophen (10-30) ug/mL Ur Barbiturates Sc reen (Negative) ng/mL Ur Phencyclidine S crn (Negative) ng/mL Ur Amphetamines Sc reen (Negative) ng/mL U Benzodiazepines Scrn (Negative) ng/mL Urine Cocaine Scre en (Negative) ng/mL U Marijuana (THC) Screen (Negative) ng/mL Ethyl Alcohol (0-10) mg/dL SARS-CoV-2 Ag (Rap id) (Negative) 07/25/20 07/25/20 07/25/20 Range/Units 18:05 19:54 20:20 WBC (4.0-10.0) 10^3/ uL RBC (4.1-5.3) 10^6/u L Hgb (11.5-15.3) g/dL Hct (37.0-47.0) % MCV (81-99) fL MCH (28.0-34.0) pg MCHC (30.0-36.0) g/dL RDW (12.1-15.1) % Plt Count (130-400) 10^3/c mm MPV (7.4-10.4) fL Neut % (Auto) % Lymph % (Auto) % Island % (Auto) % Eos % (Auto) % Baso % (Auto) % Neut # (Auto) (1.8-7.7) 10^3/u L Lymph # (Auto) (0.8-4.8) 10^3/u L Island # (Auto) (0.2-0.9) 10^3/u L Eos # (Auto) (0.0-0.8) 10^3/u L Baso # (Auto) (0.0-0.1) 10^3/u L Nucleated RBC % (a uto) % Nucleated RBCs # /100WBC PT (12.1-14.9) SECO NDS INR (0.8-1.2) D-Dimer (0-0.59) ug/mIFE U Specimen Type Sample Site ABG pH (7.35-7.45) ABG pCO2 (35-45) mmHg ABG pO2 (80.0-100.0) mmH g ABG HCO3 (22-26) mmol/L ABG Base Excess (-2.0-2.0) mmol/ L Tyron Test Hematocrit (37-47) % O2 Delivery Device FiO2 % Thread Inspector ID Blood Gas Notified Time Sodium (136-145) mmol/L Potassium (3.5-5.1) mmol/L Chloride (98-107) mmol/L Carbon Dioxide (22-29) mmol/L Anion Gap (5-19) BUN (8-23) mg/dL Creatinine (0.5-0.9) mg/dL GFR Calculation (90-130) mL/min Glucose (65-115) mg/dL Calculated Osmolal ity (285-295) mOsm/k g Lactic Acid (0.5-2.2) mmol/L Calcium (8.5-10.5) mg/dL Magnesium (1.7-2.3) mg/dL Total Bilirubin (0.15-1.2) mg/dL AST (0-32) U/L ALT (0-33) U/L Alkaline Phosphata se (35-105) IU/L Ammonia 53 H (11-51) umol/L Troponin T Baselin e (0-10) ng/L Troponin T 120 Min [place] (0-10) ng/L Delta Troponin T (0-10) ABS# NT-Pro-B Natriuret Pep (0-125) pg/mL Total Protein (6.6-8.7) g/dL Albumin (3.5-5.2) g/dL Globulin (1.3-4.6) g/dL Lipase (13-60) U/L Procalcitonin (0-0.5) ng/mL Urine Color (Yellow) Urine Appearance (CLEAR) Urine pH (5-7) Ur Specific Gravit y (1.005-1.030) Urine Protein (Negative) Urine Glucose (UA) (Normal) Urine Ketones (Negative) Urine Blood (Negative) Urine Nitrate (Negative) Urine Bilirubin (Negative) Urine Urobilinogen (Negative) mg/dL Ur Leukocyte Mirosl[place] ase (Negative) Urine RBC (0-2) /hpf Urine WBC (0-5) /hpf Ur Squamous Epith Cells (0-5) /hpf Amorphous Sediment /hpf Urine Bacteria (NONE) /hpf Hyaline Casts /lpf Fine Granular Cast s /lpf Salicylates (3-10) mg/dL Urine Opiates Scre en Negative (Negative) ng/mL Acetaminophen (10-30) ug/mL Ur Barbiturates Sc reen Negative (Negative) ng/mL Ur Phencyclidine S crn Negative (Negative) ng/mL Ur Amphetamines Sc reen Negative (Negative) ng/mL U Benzodiazepines Scrn Negative (Negative) ng/mL Urine Cocaine Scre en Negative (Negative) ng/mL U Marijuana (THC) Screen Negative (Negative) ng/mL Ethyl Alcohol (0-10) mg/dL SARS-CoV-2 Ag (Rap id) Negative (Negative) 07/25/20 07/25/20 Range/Units 20:20 20:20 WBC (4.0-10.0) 10^3/ uL RBC (4.1-5.3) 10^6/u L Hgb (11.5-15.3) g/dL Hct (37.0-47.0) % MCV (81-99) fL MCH (28.0-34.0) pg MCHC (30.0-36.0) g/dL RDW (12.1-15.1) % Plt Count (130-400) 10^3/c mm MPV (7.4-10.4) fL Neut % (Auto) % Lymph % (Auto) % Island % (Auto) % Eos % (Auto) % Baso % (Auto) % Neut # (Auto) (1.8-7.7) 10^3/u L Lymph # (Auto) (0.8-4.8) 10^3/u L Island # (Auto) (0.2-0.9) 10^3/u L Eos # (Auto) (0.0-0.8) 10^3/u L Baso # (Auto) (0.0-0.1) 10^3/u L Nucleated RBC % (a uto) % Nucleated RBCs # /100WBC PT (12.1-14.9) SECO NDS INR (0.8-1.2) D-Dimer (0-0.59) ug/mIFE U Specimen Type Sample Site ABG pH (7.35-7.45) ABG pCO2 (35-45) mmHg ABG pO2 (80.0-100.0) mmH g ABG HCO3 (22-26) mmol/L ABG Base Excess (-2.0-2.0) mmol/ L Tyron Test Hematocrit (37-47) % O2 Delivery Device FiO2 % Thread Inspector ID Blood Gas Notified Time Sodium (136-145) mmol/L Potassium (3.5-5.1) mmol/L Chloride (98-107) mmol/L Carbon Dioxide (22-29) mmol/L Anion Gap (5-19) BUN (8-23) mg/dL Creatinine (0.5-0.9) mg/dL GFR Calculation (90-130) mL/min Glucose (65-115) mg/dL Calculated Osmolal ity (285-295) mOsm/k g Lactic Acid 1.9 (0.5-2.2) mmol/L Calcium (8.5-10.5) mg/dL Magnesium (1.7-2.3) mg/dL Total Bilirubin (0.15-1.2) mg/dL AST (0-32) U/L ALT (0-33) U/L Alkaline Phosphata se (35-105) IU/L Ammonia (11-51) umol/L Troponin T Baselin e (0-10) ng/L Troponin T 120 Min [place] 78.70 H (0-10) ng/L Delta Troponin T 21.70 H* (0-10) ABS# NT-Pro-B Natriuret Pep (0-125) pg/mL Total Protein (6.6-8.7) g/dL Albumin (3.5-5.2) g/dL Globulin (1.3-4.6) g/dL Lipase (13-60) U/L Procalcitonin (0-0.5) ng/mL Urine Color (Yellow) Urine Appearance (CLEAR) Urine pH (5-7) Ur Specific Gravit y (1.005-1.030) Urine Protein (Negative) Urine Glucose (UA) (Normal) Urine Ketones (Negative) Urine Blood (Negative) Urine Nitrate (Negative) Urine Bilirubin (Negative) Urine Urobilinogen (Negative) mg/dL Ur Leukocyte Miroslava ase (Negative) Urine RBC (0-2) /hpf Urine WBC (0-5) /hpf Ur Squamous Epith Cells (0-5) /hpf Amorphous Sediment /hpf Urine Bacteria (NONE) /hpf Hyaline Casts /lpf Fine Granular Cast s /lpf Salicylates (3-10) mg/dL Urine Opiates Scre en (Negative) ng/mL Acetaminophen (10-30) ug/mL Ur Barbiturates Sc reen (Negative) ng/mL Ur Phencyclidine S crn (Negative) ng/mL Ur Amphetamines Sc reen (Negative) ng/mL U Benzodiazepines Scrn (Negative) ng/mL Urine Cocaine Scre en (Negative) ng/mL U Marijuana (THC) Screen (Negative) ng/mL Ethyl Alcohol (0-10) mg/dL SARS-CoV-2 Ag (Rap id) (Negative) Discharge Plan Discharge Patient Disposition: Xfer Other Clinical Impression: Respiratory failure Qualifiers: Chronicity: acute Respiratory failure complication: hypoxia Qualified Code(s): J96.01 - Acute respiratory failure with hypoxia Pneumothorax Qualifiers: Pneumothorax type: unspecified pneumothorax Qualified Code(s): J93.9 - Pneumothorax, unspecified Condition: Stable Discharge Date/Time: 07/25/20 22:36 Coding Level of Care Code ED Home Appliance Washing Machine Mechanic for Jie Fwd Exam Detailed
[2020-07-25 18:32] VITALS: RESP 18
[2020-07-25 18:36] LABS: SARS Covid-2 Antigen Negative (Negative)
[2020-07-25 18:36] LABS: ABG PCO2 47.3 mmHg (35-45); ABG PH Result 7.34 (7.35-7.45); HCO3 ABG 25.3 mmol/L (22-26); PO2 ABG 61.2 mmHg (80.0-100.0)
[2020-07-25] MEDS: dexamethasone 10 mg/mL INJ IVP (18:36)
[2020-07-25] MEDS: propofol 1,000 MG/100 ML INJ 6.5 MG IV (18:36)
[2020-07-25 18:37] LABS: Arterial Blood Gas Hematocrit 14.4 % (37-47); Blood Gas Allen Test POS; Blood Gas Operator Identificat CK; Blood Gas Sample Site LR; Blood Gas Sample Type ARTERIAL; Oxygen Device VENT
[2020-07-25 18:38] LABS: Blood Gas CCRB Time 1830
[2020-07-25 18:38] LABS: Troponin(5th) Baseline 57 ng/L (0-10)
[2020-07-25 18:40] VITALS: O2SAT 98
[2020-07-25 18:47] LABS: NT Pro B Type Natriuretic Pept 2973 pg/mL (0-125); Procalcitonin 0.06 ng/mL (0-0.5)
--- NOTE | 2020-07-25 18:48 | PC.NURSE ---
Intubation fail x 2
[2020-07-25 18:58] LABS: Acetaminophen < 5.0 ug/mL (10-30); Alanine Aminotransferase 47 U/L (0-33); Albumin Level 3.8 g/dL (3.5-5.2); Alcohol Level < 10 mg/dL (0-10); Alkaline Phosphatase 104 IU/L (35-105); Aspartate Amino Transferase 60 U/L (0-32); Blood Urea Nitrogen 13 mg/dL (8-23); Calcium 8.5 mg/dL (8.5-10.5); Carbon Dioxide 26 mmol/L (22-29); Chloride 99 mmol/L (98-107); Creatinine Clr Calc Pharmacy 151.3979; Globulin 3.2 g/dL (1.3-4.6); Glomerular Filtration Rate 101.3 mL/min (90-130); Glucose 196 mg/dL (65-115); Lipase 21 U/L (13-60); Magnesium 2.4 mg/dL (1.7-2.3); Osmolality Calculated 286 mOsm/kg (285-295); Salicylate < 0.3 mg/dL (3-10); Sodium 137 mmol/L (136-145); Total Bilirubin 0.7 mg/dL (0.15-1.2)
[2020-07-25 18:59] LABS: Anion Gap 16.2 (5-19); Potassium 4.2 mmol/L (3.5-5.1)
[2020-07-25 19:24] VITALS: RESP 16
[2020-07-25] MEDS: piperacillin-tazobactam 3.375 GM in sodium chloride 0.9% (plus) 50 ML IV (19:34)
[2020-07-25] MEDS: ceFAZolin 1,000 mg SDV 2000 MG IVP (19:35)
[2020-07-25 20:11] LABS: Glucose Urine UA Norm (Normal); Ketones Urine 1+ (Negative); Protein Urine 2+ (Negative); Urine Appearance Cloudy (CLEAR); Urine Color Yellow (Yellow); pH Urine 5 (5-7)
[2020-07-25 20:12] LABS: Amphetamines Screen Urine Negative (Negative); Barbiturates Screen Urine Negative (Negative); Benzodiazepines Screen Urine Negative (Negative); Cocaine Screen Urine Negative (Negative); Opiate Screen Urine Negative (Negative); PCP Screen Urine Negative (Negative); THC Screen Urine Negative (Negative)
[2020-07-25 20:12] LABS: Bilirubin Urine 1+ (Negative); Blood Urine 2+ (Negative); Nitrate Urine Negative (Negative); Urobilinogen Urine 12 mg/dL (Negative)
[2020-07-25 20:13] LABS: Add Urine Microscopic? YES; Leukocyte Esterase Urine Negative (Negative)
[2020-07-25 20:15] LABS: Add Urine Culture? No; Amorphous Sediment Urine 4+ /hpf; Bacteria Urine 1+ /hpf; Fine Granular Casts Urine 0-4 /lpf; RBC Urine 0-4 /hpf (0-2)
[2020-07-25 20:28] VITALS: BP 110/71; PULSE 80; RESP 18; O2SAT 97
[2020-07-25 20:51] LABS: Lactic Sepsis W/Reflex 1.9 mmol/L (0.5-2.2)
[2020-07-25 21:18] LABS: Ammonia 53 umol/L (11-51)
[2020-07-25 21:37] VITALS: BP 107/69; PULSE 75; RESP 19; O2SAT 97
== END 2020-07-25 22:36 | disposition other institution (70) ==
PROVIDERS: Emergency Medicine; Emergency Provider Emergency Medicine
DX: J96.01 Acute respiratory failure with hypoxia (principal); J93.9 Pneumothorax, unspecified; I50.9 Heart failure, unspecified; J44.9 Chronic obstructive pulmonary disease, unspecified; Z85.038 Personal history of other malignant neoplasm of large intestine; F17.210 Nicotine dependence, cigarettes, uncomplicated
CPT/HCPCS: 12345; 31500; 32551; 36415; 36556; 36592; 36600; 51702; 71045; 80053; 80306; 80307; 81001; 82140; 82803; 83605; 83690; 83735; 83880; 84145; 84484; 85025; 85378; 85610; 87040; 87070; 87205; 87426; 93005; 94002; 94799; 96365; 96366; 96367; 96368; 96375; 99284; 99291; C1751; J0171; J0330; J0690; J1100; J2543; J2704; J3370; J3490; J7050

== ENCOUNTER → 2020-08-23 07:31 | Outpatient (BNVA) | payer MEDICARE, SELFPAY | PROVIDERS: Visit Provider Nurse Practitioner | DX: F63.81 Intermittent explosive disorder (principal) | CPT/HCPCS: 99214 ==

== ENCOUNTER 2020-12-03 16:30 | Outpatient (CLI) | payer MEDICARE, SELFPAY ==
--- NOTE | 2020-12-07 13:35 | ONC CON_ITS ---
Dr. Elder New Patient Note Patient: Shavonne Mayberry Unit #: [id number]: 1955 Dicatated By: Bird Elder M.D.Date of Visit: Dec 03, 2020 Onc MED New Patient/Consult Referring Physician: Chief Complaint: Chronic respiratory failure. History of Present Illness: This is a 64-year-old woman with morbid obesity, COPD, congestive heart failure, and chronic respiratory failure. I am seeing her to assist with her palliative care on hospice. Her history is somewhat limited, as she had moved to this area from [place], [place], and those prior records have not been available. In July 2020 she was admitted to the hospital after presenting to the emergency room in respiratory failure. She had associated pneumothorax. She required chest tube placement and intubation/mechanical ventilation. Following discharge from the hospital, she was transitioned to hospice, as she had very limited activity and very limited access to medical care. She does have a prior history of cervical cancer and colon cancer. She apparently did receive adjuvant chemotherapy for the colon cancer, though her recollection is very sketchy. She is seen for a home visit. She has very limited activity, and she spends virtually all of her time lying in bed. She does get up to the commode. Her ECOG score is 3. Her appetite is wishy-washy. She has not had fever. She does report having hot flashes and sweating. She is oxygen dependent, but she does take her oxygen off to smoke, and she sometimes forgets to put it back on. As result she sometimes does get very hypoxic. She has a smoker's cough. She occasionally has chest pain. She complains of having nausea. Her bowel function varies, but lately she has been having constipation. She has bladder incontinence. She has been having pain in the right shoulder associated with the previous injury. She also has chronic lower back pain due to degenerative disease. She has had previous back surgery. She occasionally has headache. She also complains of dizziness, and she has numbness in both hands. She has chronic anxiety/depression, but it improved with her current medication. She also has chronic insomnia. Past Medical History: Her medical history includes anxiety, chronic obstructive pulmonary disease, congestive heart failure, degenerative arthritis, degenerative disease of the spine, depression, and obesity. She has a history of cervical cancer and a history of colon cancer. Past Surgical History: Her surgical/procedural history includes back surgery, cholecystectomy, hysterectomy, placement of Port-A-Cath venous access device for chemotherapy, and resection of colon cancer. Medications: Acetaminophen Suppository Rectal PRN, Albuterol Sulfate 2 Inhalation (of 108 (90 base) mcg/act) Aerosol Powder, Breath Activated Inhalation q 6 hours PRN, Atropine Sulfate Injection, Budesonide 2 Inhalation (of 180 mcg/act) Aerosol Powder, Breath Activated Inhalation b.i.d., Claritin 1 (10 mg) Tablet Oral daily, Colace 1 (100 mg) Capsule Oral b.i.d., EPINEPHrine (1 mg/mL) Injection Take as Directed, Imodium A-D Tablet Oral PRN, Lasix 1 (40 mg) Tablet Oral daily, LORazepam Concentrate Oral, Metoprolol Succinate ER 1 (25 mg) Tablet SR 24 HR Oral at bedtime, Morphine Sulfate 1 (15 mg) Tablet Oral q PRN, Morphine Sulfate (Concentrate) Solution Oral, Morphine Sulfate ER 1 (15 mg) Tablet ER 12 HR Abuse-Deterrent Oral q 12 hours, Nystatin (536546 Units/g) Ointment Topical Take as Directed, Ondansetron HCl 1 (4 mg) Tablet Oral q 6 hours PRN, Oxybutynin Chloride ER 1 (15 mg) Tablet SR 24 HR Oral daily, Paxil 1 (20 mg) Tablet Oral at bedtime, Promethazine HCl Suppository Rectal, Remeron 1 (15 mg) Tablet Oral at bedtime, Robaxin-750 1 (750 mg) Tablet Oral t.i.d., Topamax 1 (25 mg) Tablet Oral b.i.d. Allergies: Darvon, Iodine, Seafood, and Shellfish Social History: Ms. Mayberry is single. She has history of smoking 1 1/2 to 2 packs of cigarettes daily. She has a history of alcohol and drug abuse, but she quit both a long time ago. Family History: Family history is unknown as the patient was adopted. Review Of Symptoms: Constitutional - She has very limited activity. She spends most of her time lying in bed. She does get up to the commode. Her appetite is wishy-washy. She has not had fever. She does have hot flashes and sweating. ECOG score is 3, Eyes - She has had decline in visual acuity, ENMT - She has hearing loss. She has sinus drainage. No mouth sores. No sore throat or difficulty swallowing, Hematologic/Lymphatic - She has easy bruising, Respiratory - She has shortness of breath. She is oxygen dependent. She has a smoker's cough. No pleuritic pain or hemoptysis, Cardiovascular - She sometimes has pressure in her chest and she occasionally has chest pain. No palpitations. She has chronic swelling, Gastrointestinal - She sometimes has nausea. No heartburn or acid reflux. She has constipation. No blood in the stool or black stools, Genitourinary (F) - She has bladder incontinence, Musculoskeletal - She has pain in her right shoulder following a previous injury and she has chronic low back pain. She has had previous back surgery, Integumentary - She has dry skin, Neurologic - She occasionally has headache. She has dizziness. She has numbness in both hands. No other focal neurologic symptoms, Psychiatric - She has anxiety and depression, and she has insomnia. Vital Signs: Performed on Dec 03, 2020 13:04: 91 % (LOW), 85 /min, 16 /min, 131/79 mm(hg), and 97.7 F (LOW). Physical Examination: Constitutional - She appears generally weak, Eyes - Sclerae nonicteric. Conjunctivae clear, ENMT - No lesions noted in the oral cavity, Hematologic/Lymphatic - No cervical, clavicular, or axillary adenopathy, Respiratory - Lungs show diminished air movement bilaterally. There are some coarse rales present, Cardiovascular - Heart rhythm is regular. There is no murmur, gallop, or rub noted, Abdomen - Distended. Liver and spleen do not appear enlarged. There is no abdominal mass or ascites noted and there is no inguinal adenopathy, Extremities - There is 3+ lower extremity edema with associated induration. There is also mild swelling in the hands, Neurologic - No focal neurologic deficits noted. Problem List: 1. Chronic respiratory failure. This is likely to be multifactorial. She is oxygen dependent. She has extremely limited activity and overall poor prognosis. 2. COPD. 3. Morbid obesity. 4. Congestive heart failure, which I assume is predominantly right heart failure. 5. Degenerative disease of the spine/degenerative arthritis with chronic pain. 6. History of colon cancer. 7. History of cervical cancer. 8. Anxiety/depression. 9. History of prior alcohol and substance abuse. Problems Addressed with this Encounter and Plan: 1. Chronic respiratory failure which is likely multifactorial and due to combined COPD and morbid obesity. There is associated congestive heart failure with chronic, refractory edema. She has extremely limited activity which limits her access to medical care. She is receiving palliative care on hospice, as she does appear to have very poor overall prognosis. She will remain on oxygen support. I would like to give her the option to try increasing her diuretic therapy, as she is able to tolerate. She would need to have a baseline chemistry study and she would require ongoing monitoring. Her management will otherwise be symptomatic/supportive, and her prognosis remains poor. 2. She has degenerative arthritis and degenerative disease of the spine with chronic pain. This is likely worsened as result of her inactivity. It is tolerable with her current medication regimen. 3. She has constipation. Management is somewhat problematic as her bowel function does tend to be variable. At least for a short time I will have her start senna/docusate, and that can be further adjusted as necessary. 4. Anxiety/depression. She will continue her current medication, which does appear to be managing it adequately. Signed By: Bird Elder M.D. <<Signature on File>>
== END 2020-12-03 16:31 | disposition home or self-care (01) ==
LOC: ONCMED 12-04 10:43
PROVIDERS: Visit Provider Internal Medicine Medical Oncology
DX: J96.11 Chronic respiratory failure with hypoxia (principal); Z99.81 Dependence on supplemental oxygen; J44.9 Chronic obstructive pulmonary disease, unspecified; E66.01 Morbid (severe) obesity due to excess calories; I50.9 Heart failure, unspecified; M47.9 Spondylosis, unspecified; F41.9 Anxiety disorder, unspecified; F32.9 Major depressive disorder, single episode, unspecified; F10.10 Alcohol abuse, uncomplicated; F19.10 Other psychoactive substance abuse, uncomplicated; Z85.038 Personal history of other malignant neoplasm of large intestine; Z85.41 Personal history of malignant neoplasm of cervix uteri
CPT/HCPCS: 99204

== ENCOUNTER → 2021-02-03 09:00 | Outpatient (BNVA) | payer MEDICARE, SELFPAY | PROVIDERS: PCP Nurse Practitioner Family; Visit Provider Nurse Practitioner Family | DX: Z79.899 Other long term (current) drug therapy (principal); Z13.6 Encounter for screening for cardiovascular disorders; I50.9 Heart failure, unspecified; E55.9 Vitamin D deficiency, unspecified; R53.83 Other fatigue; E53.8 Deficiency of other specified B group vitamins; K90.9 Intestinal malabsorption, unspecified; R53.1 Weakness; J44.9 Chronic obstructive pulmonary disease, unspecified | CPT/HCPCS: 80053; 80061; 82306; 82607; 83036; 83880; 84443; 85025 ==

== ENCOUNTER → 2021-02-11 11:12 | Outpatient (BNVA) | payer MEDICARE, SELFPAY | PROVIDERS: PCP Nurse Practitioner Family; Visit Provider Family Medicine | DX: I50.9 Heart failure, unspecified (principal); J44.9 Chronic obstructive pulmonary disease, unspecified; Z79.899 Other long term (current) drug therapy; F63.81 Intermittent explosive disorder; F41.9 Anxiety disorder, unspecified; F32.9 Major depressive disorder, single episode, unspecified; E66.01 Morbid (severe) obesity due to excess calories; Z68.43 Body mass index [BMI] 50.0-59.9, adult | CPT/HCPCS: 80053; 80061; 83036; 85025 ==

== ENCOUNTER 2022-01-19 13:02 | Inpatient (IN) | payer MEDICARE, MEDICAID, SELFPAY ==
[2022-01-19] VITALS (9 sets, daily range): BP systolic 122–155; BP diastolic 61–90; PULSE 60–97; RESP 17; TEMP 36.4–36.8; O2SAT 90–98; BMI 50.1; BMI 50.4
--- NOTE | 2022-01-19 13:21 | CTR_ITS ---
PROCEDURE INFORMATION: Exam: CT Abdomen And Pelvis With Contrast Exam date and time: 01/19/2022 1:21 PM Age: 66 years old Clinical indication: Abdominal pain; Prior surgery; Surgery type: Hyst, colon; Patient HX: HX of colon cancer; Additional info: Eval for infection TECHNIQUE: Imaging protocol: Computed tomography of the abdomen and pelvis with contrast. Sagittal and coronal reformatted images were created and reviewed. Radiation optimization: All CT scans at this facility use at least one of these dose optimization techniques: automated exposure control; mA and/or kV adjustment per patient size (includes targeted exams where dose is matched to clinical indication); or iterative reconstruction. Contrast material: OMNI 300; Contrast volume: 95 ml; Contrast route: INTRAVENOUS (IV); COMPARISON: CR XR chest 1V portable [id number] 07/25/2020 5:57 PM RADIATION DOSE METRICS: Total DLP (mGy-cm): 1733.63 FINDINGS: Lungs: There is linear scarring in the right middle lobe and right lower lobe. Dependent atelectasis in the lungs bilaterally. Pleural spaces: No pleural effusion. Heart: Visualized portions of the heart are mildly enlarged. Liver: The liver is unremarkable. Gallbladder and bile ducts: Patient has had a previous cholecystectomy. No biliary ductal dilatation. Pancreas: The pancreas is unremarkable. No pancreatic ductal dilatation. Spleen: The spleen is unremarkable. Adrenal glands: The right and left adrenal glands are unremarkable. Kidneys and ureters: Nonobstructing stone in the right kidney measuring 3.3 mm (series 2, image 44). The left kidney is unremarkable. The right and left ureters are unremarkable. Stomach and bowel: Patient has had a prior right partial colectomy and ileocolic anastomosis. No evidence for bowel obstruction. No mucosal thickening. Appendix: The patient has had a previous appendectomy. Intraperitoneal space: The No free intraperitoneal air. No ascites. No loculated fluid collections to suggest an abscess. Vasculature: Minimal atherosclerotic changes in the visualized arteries. No evidence for aortic aneurysm or aortic dissection. There is narrowing of the the superior mesenteric vein just proximal to the portal confluence. There are associated varices and collateral vessels in the mesentery as well as bilateral anterior subcutaneous collaterals. Lymph nodes: Multiple enlarged left inguinal and left iliac lymph nodes, the largest of these measures 2.3 cm in short axis (series 2, image 73). Mildly enlarged left retroperitoneal lymph node measuring 1.3 cm in short axis (series 2, image 51). Urinary bladder: The bladder is decompressed by a Alvarez catheter. Reproductive: Patient has had a previous hysterectomy. The right and left ovaries are not visualized, the patient may have had a previous bilateral oophorectomy. No abnormal adnexal masses. Bones/joints: Degenerative changes in the spine and hips. Bones are diffusely osteopenic. Soft tissues: There is a ventral midline supraumbilical hernia containing omental fat and a portion of the transverse colon as well as a loop of small bowel. No evidence for strangulation or bowel obstruction. There is a multilobulated mass in the left anterior abdominal wall extending superiorly and anteriorly into the overlying subcutaneous tissues, this extends from just below the supraumbilical hernia inferiorly over the left lower quadrant. This measures 10.8 x 8.8 x 13.0 cm (series 601, image 48 and series 2, image 63). Mild body wall edema. CT/CT abdomen pelvis w con* [id number] IMPRESSION: 1. No acute abnormality in the abdomen or pelvis. 2. Patient has had a prior right partial colectomy and ileocolic anastomosis. 3. Left inguinal and left iliac lymphadenopathy. Large mass in the anterior abdominal wall over the left lower quadrant extending into the subcutaneous tissues over the abdomen. Findings are suspicious for metastatic foci. 4. There is narrowing of the the superior mesenteric vein just proximal to the portal confluence. There are associated varices and collateral vessels in the mesentery as well as bilateral anterior subcutaneous collaterals. Etiology is uncertain, this could be due to sequela of postsurgical or postradiation changes or could represent sequela of chronic venous thrombosis. There is no evidence for acute venous thrombosis however. 5. Mild body wall edema. 6. Nonobstructing right renal stone. 7. Incidental/nonacute findings are listed in the report.
--- NOTE | 2022-01-19 13:25 | PC.NURSE ---
COMPLETE BED CHANGE PERFORMED. JACQUELINE MOREIRA TO ASSESS BREAKDOWN IN SACRUM. PT IS INCONTINENT OF STOOL AND URINE.
--- NOTE | 2022-01-19 13:46 | W.ED.GENADLT ---
HPI - General Adult General: Chief complaint: Abdominal Pain Stated complaint: ABD PAIN. HAS MASS IN ABD Time Seen by Provider: 01/19/22 13:05 History of Present Illness: Patient is a 66-year-old female with history of morbid obsesity CHF, bacterial conjunctivitis, abdominal hernia who presents the emergency room with complaints of acute onset of lower abdominal pain and inability to care for self at home x 3-4 days. Patient lives at home with 2 other friends. Patient has been chronically bedbound. Her friends normally take care of her and clean her up. However for the last few days, patient has not had anybody who can take care of her. Patient complains of lower stabbing intermittent abdominal pain. In addition, patient reports by pain. Denies any fever/chills, nausea/vomiting, chest pain, shortness breath palpitation, lightheadedness. Patient says that she has been chronically bedbound for the last year or so because she is not able to support her weight Onset: 3-4 days of lower abd pain and inability to take care of self Duration:ongoing Location:home Severity:moderate Associated symptoms: Reports rash (+ glute erythema and pain); Deny chest pain, dyspnea, nausea, palpitations or vomiting Review of Systems Const: Denies: fever(s) or chills Eyes: Denies: change in vision ENMT: Denies: mouth pain Card: Denies: chest pain or palpitations Resp: Denies: dyspnea or non-productive cough GI: Reports: abdominal pain (+sharp lower abd pain); Denies: nausea, vomiting or diarrhea : Denies: dysuria Musc: Denies: extremity pain Skin/Breast: Reports: rash (+ glute erythema and pain) Neuro: Denies: weakness in extremities Psych: Reports: other (Normal mood) Rc/Lymph: Denies: easy bruising PFS ED PFSH: Medical History Abdominal hernia Abdominal mass Bacterial conjunctivitis of both eyes CHF (congestive heart failure) COPD (chronic obstructive pulmonary disease) Depression Fatigue Generalized weakness H/O malignant neoplasm of colon Hypertension screen Intermittent explosive Medication management Morbid obesity with body mass index (BMI) of 50.0 to 59.9 in adult Port-A-Cath in place Reports port a cath was placed 4 years ago for chemo treatment for colon cancer. It has not been accessed since that time. Skin infection Urinary and fecal incontinence Vitamin D deficiency Surgical History History of back surgery Status post cholecystectomy Status post colon resection Status post hysterectomy Social History Smoking and tobacco status: current every day smoker cigarettes Packs smoked per day: 1 Years cigarettes smoked: 55 [ Other cigarette details: 1 pack per day but on a bad day i'll smoke 3-4 packs per day ] Quit status (tobacco): has tried quititng Second hand smoke exposure: Yes Alcohol intake: former Former alcohol use details: She is unsure of when she quit, maybe a couple years. Physical Exam Const: COMMON NORMALS: alert HENMT: COMMON NORMALS: atraumatic HEAD & SCALP: atraumatic MOUTH: moist mucous membranes not abnormal Eye: COMMON NORMALS: EOMs intact bilaterally and conjunctivae normal CONJUNCTIVA: Yes conjunctivae normal Neck/C-Spine: COMMON NORMALS: full ROM and supple Resp: COMMON NORMALS: normal respiratory effort and clear to auscultation bilaterally AUSCULTATION: clear to auscultation bilaterally Cardio: COMMON NORMALS: regular rate RATE: regular rate GI: COMMON NORMALS: Soft to palpation and non-tender PALPATION: Yes Soft to palpation OTHER: + mild hypogastric TTP. NO guarding rebound, guarding, rigidity. No CVA tenderness to percussion. Neg Iniguez/Neg McBurney's point tenderness, no suprabupic tenderness to palpation. Extremity: COMMON NORMALS: full ROM Neuro: SENSORIUM/ORIENTATION: Yes alert MOTOR EXAM: No Abnormal motor strength present and Other motor observations present (no focal motor deficits) Psych: COMMON NORMALS: speech normal SPEECH: Yes normal speech MOOD & AFFECT: Yes euthymic mood Skin: OTHER: + Sacral area decubitus air erythema and stage I ulcer, groin area covered with feces and dried urine Course Vital Signs: Vital signs: Vital Signs Temperature 98.6 F 01/20/22 07:17 Pulse Rate 70 01/20/22 08:22 Respiratory Rate 14 01/20/22 08:22 Blood Pressure 115/61 01/20/22 07:17 Pulse Oximetry 94 01/20/22 08:22 MDM - General Adult Medical Decision Making 66-year-old female with history of morbid obesity, chronically bedbound, abdominal hernia who presents emergency with complaints of lower abdominal pain x3 to 4 days. On exam, patient has mild tenderness palpation in the hypogastric area. Patient was noted to be covered in feces and dried urine in the groin area. +Sacral ulcer noted. Work-up showed white count 9.3. CT of pelvis did not static foci of mass. This was discussed extensively with patient. Patient received a copy of the CT report with the documented findings. Patient is instructed to follow up urgently with specialists. UA is consistent with UTI. S/p ceftriaxone in the ED. Patient is not able to ambulate, has poor social situation at home, and is unable to refill her medicine --- will be admitted for further management. Disposition: admission Lab Data : 01/20/22 06:17 01/20/22 06:17 Radiology Impressions Abdomen/Pelvis CT 01/19/22 13:21 IMPRESSION: 1. No acute abnormality in the abdomen or pelvis. 2. Patient has had a prior right partial colectomy and ileocolic anastomosis. 3. Left inguinal and left iliac lymphadenopathy. Large mass in the anterior abdominal wall over the left lower quadrant extending into the subcutaneous tissues over the abdomen. Findings are suspicious for metastatic foci. 4. There is narrowing of the the superior mesenteric vein just proximal to the portal confluence. There are associated varices and collateral vessels in the mesentery as well as bilateral anterior subcutaneous collaterals. Etiology is uncertain, this could be due to sequela of postsurgical or postradiation changes or could represent sequela of chronic venous thrombosis. There is no evidence for acute venous thrombosis however. 5. Mild body wall edema. 6. Nonobstructing right renal stone. 7. Incidental/nonacute findings are listed in the report. Chest CTA 01/19/22 21:29 IMPRESSION: 1. Several enlarged mediastinal lymph nodes measuring up to 12.5 mm, nonspecific. 2. Right middle lobe and bibasilar subsegmental atelectasis versus infiltrate. Laboratory Results WBC 9.3 10^3/uL (4.0-10.0) 01/19/22 13:55 RBC 4.92 10^6/uL (4.1-5.3) 01/19/22 13:55 Hgb 13.5 g/dL (11.5-15.3) 01/19/22 13:55 Hct 42.8 % (37.0-47.0) 01/19/22 13:55 MCV 87.0 fl (81-99) 01/19/22 13:55 MCH 27.4 pg (28.0-34.0) L 01/19/22 13:55 MCHC 31.5 g/dL (30.0-36.0) 01/19/22 13:55 RDW 15.1 % (12.1-15.1) 01/19/22 13:55 Plt Count 276 10^3/cmm (130-400) 01/19/22 13:55 MPV 9.8 fL (7.4-10.4) 01/19/22 13:55 Neut % (Auto) 74.9 % 01/19/22 13:55 Lymph % (Auto) 16.5 % 01/19/22 13:55 Lamar % (Auto) 5.6 % 01/19/22 13:55 Eos % (Auto) 2.0 % 01/19/22 13:55 Baso % (Auto) 0.8 % 01/19/22 13:55 Neut # (Auto) 6.95 10^3/uL (1.8-7.7) 01/19/22 13:55 Lymph # (Auto) 1.5 10^3/uL (0.8-4.8) 01/19/22 13:55 Lamar # (Auto) 0.5 10^3/uL (0.2-0.9) 01/19/22 13:55 Eos # (Auto) 0.2 10^3/uL (0.0-0.8) 01/19/22 13:55 Baso # (Auto) 0.1 10^3/uL (0.0-0.1) 01/19/22 13:55 Nucleated RBC % (auto) 0 % 01/19/22 13:55 Nucleated RBCs # 0.0 /100WBC 01/19/22 13:55 Sodium 137 mmol/L (136-145) 01/19/22 13:55 Potassium 3.7 mmol/L (3.5-5.1) 01/19/22 13:55 Chloride 100 mmol/L (98-107) 01/19/22 13:55 Carbon Dioxide 26 mmol/L (22-29) 01/19/22 13:55 Anion Gap 14.7 (5-19) 01/19/22 13:55 BUN 8 mg/dL (8-23) 01/19/22 13:55 Creatinine 0.3 mg/dL (0.5-0.9) L 01/19/22 13:55 GFR Calculation 224.0 mL/min (90-130) H 01/19/22 13:55 Glucose 103 mg/dL (65-115) 01/19/22 13:55 Calculated Osmolality 283 mOsm/kg (285-295) L 01/19/22 13:55 Lactate 0.9 mmol/L (0.5-2.2) 01/19/22 13:55 Calcium 9.4 mg/dL (8.5-10.5) 01/19/22 13:55 Total Bilirubin 0.3 mg/dL (0.15-1.2) 01/19/22 13:55 AST 9 U/L (0-32) 01/19/22 13:55 ALT < 5 U/L (0-33) 01/19/22 13:55 Alkaline Phosphatase 83 IU/L (35-105) 01/19/22 13:55 C-Reactive Protein 23.6 mg/L (0.0-4.9) H 01/19/22 13:55 Total Protein 6.6 g/dL (6.6-8.7) 01/19/22 13:55 Albumin 3.6 g/dL (3.5-5.2) 01/19/22 13:55 Globulin 3.0 g/dL (1.3-4.6) 01/19/22 13:55 Lipase 26 U/L (13-60) 01/19/22 13:55 Carcinoembryonic Ag 45.8 ng/mL (0.0-4.7) H 01/19/22 13:55 Procalcitonin 0.06 ng/mL (0-0.5) 01/19/22 13:55 Urine Color Yellow (Yellow) 01/19/22 13:55 Urine Appearance Cloudy (CLEAR) 01/19/22 13:55 Urine pH 5 (5-7) 01/19/22 13:55 Ur Specific Clawson 1.020 (1.005-1.030) 01/19/22 13:55 Urine Protein Neg (Negative) 01/19/22 13:55 Urine Glucose (UA) Norm (Normal) 01/19/22 13:55 Urine Ketones Negative (Negative) 01/19/22 13:55 Urine Blood Neg (Negative) 01/19/22 13:55 Urine Nitrate Positive (Negative) H 01/19/22 13:55 Urine Bilirubin Neg (Negative) 01/19/22 13:55 Urine Urobilinogen 4 mg/dL (Negative) H 01/19/22 13:55 Ur Leukocyte Esterase 1+ (Negative) H 01/19/22 13:55 Urine RBC None /hpf (0-2) 01/19/22 13:55 Urine WBC >100 /hpf (0-5) H 01/19/22 13:55 Ur Squamous Epith Cells 0-4 /hpf (0-5) H 01/19/22 13:55 Amorphous Sediment Not Reportable 01/19/22 13:55 Urine Bacteria 4+ /hpf (NONE) H 01/19/22 13:55 Imaging Data Other Imaging: Radiologist's impression: [address] [place] [address] CT Scan Report Signed Patient: Shavonne Mayberry Unit #: [id number] : 1955 Age/Sex: 66 / F ADM Date: 01/19/22 Loc: ER Room/Bed: Attending Dr: Ordering Provider/Ordering MD: Tona Ford MD Date of Service: 01/19/22 Procedure(s): CT abdomen pelvis w con* [id number] Accession Number(s): [id number] Report Number: [id number] PROCEDURE INFORMATION: Exam: CT Abdomen And Pelvis With Contrast Exam date and time: 01/19/2022 1:21 PM Age: 66 years old Clinical indication: Abdominal pain; Prior surgery; Surgery type: Hyst, colon; Patient HX: HX of colon cancer; Additional info: Eval for infection TECHNIQUE: Imaging protocol: Computed tomography of the abdomen and pelvis with contrast. Sagittal and coronal reformatted images were created and reviewed. Radiation optimization: All CT scans at this facility use at least one of these dose optimization techniques: automated exposure control; mA and/or kV adjustment per patient size (includes targeted exams where dose is matched to clinical indication); or iterative reconstruction. Contrast material: OMNI 300; Contrast volume: 95 ml; Contrast route: INTRAVENOUS (IV);? COMPARISON: CR XR chest 1V portable [id number] 07/25/2020 5:57 PM RADIATION DOSE METRICS: Total DLP (mGy-cm): 1733.63 FINDINGS: Lungs: There is linear scarring in the right middle lobe and right lower lobe. Dependent atelectasis in the lungs bilaterally. Pleural spaces: No pleural effusion. Heart: Visualized portions of the heart are mildly enlarged. Liver: The liver is unremarkable. Gallbladder and bile ducts: Patient has had a previous cholecystectomy. No biliary ductal dilatation. Pancreas: The pancreas is unremarkable. No pancreatic ductal dilatation. Spleen: The spleen is unremarkable. Adrenal glands: The right and left adrenal glands are unremarkable. Kidneys and ureters: Nonobstructing stone in the right kidney measuring 3.3 mm (series 2, image 44). The left kidney is unremarkable. The right and left ureters are unremarkable. Stomach and bowel: Patient has had a prior right partial colectomy and ileocolic anastomosis. No evidence for bowel obstruction. No mucosal thickening. Appendix: The patient has had a previous appendectomy. Intraperitoneal space: The No free intraperitoneal air. No ascites. No loculated fluid collections to suggest an abscess. Vasculature: Minimal atherosclerotic changes in the visualized arteries. No evidence for aortic aneurysm or aortic dissection. There is narrowing of the the superior mesenteric vein just proximal to the portal confluence. There are associated varices and collateral vessels in the mesentery as well as bilateral anterior subcutaneous collaterals. Lymph nodes: Multiple enlarged left inguinal and left iliac lymph nodes, the largest of these measures 2.3 cm in short axis (series 2, image 73). Mildly enlarged left retroperitoneal lymph node measuring 1.3 cm in short axis (series 2, image 51). Urinary bladder: The bladder is decompressed by a Alvarez catheter. Reproductive: Patient has had a previous hysterectomy. The right and left ovaries are not visualized, the patient may have had a previous bilateral oophorectomy. No abnormal adnexal masses. Bones/joints: Degenerative changes in the spine and hips. Bones are diffusely osteopenic. Soft tissues: There is a ventral midline supraumbilical hernia containing omental fat and a portion of the transverse colon as well as a loop of small bowel. No evidence for strangulation or bowel obstruction. There is a multilobulated mass in the left anterior abdominal wall extending superiorly and anteriorly into the overlying subcutaneous tissues, this extends from just below the supraumbilical hernia inferiorly over the left lower quadrant. This measures 10.8 x 8.8 x 13.0 cm (series 601, image 48 and series 2, image 63). Mild body wall edema. CT/CT abdomen pelvis w con* [id number] IMPRESSION: 1. No acute abnormality in the abdomen or pelvis. 2. Patient has had a prior right partial colectomy and ileocolic anastomosis. 3. Left inguinal and left iliac lymphadenopathy. Large mass in the anterior abdominal wall over the left lower quadrant extending into the subcutaneous tissues over the abdomen. Findings are suspicious for metastatic foci. 4. There is narrowing of the the superior mesenteric vein just proximal to the portal confluence. There are associated varices and collateral vessels in the mesentery as well as bilateral anterior subcutaneous collaterals. Etiology is uncertain, this could be due to sequela of postsurgical or postradiation changes or could represent sequela of chronic venous thrombosis. There is no evidence for acute venous thrombosis however. 5. Mild body wall edema. 6. Nonobstructing right renal stone. 7. Incidental/nonacute findings are listed in the report. ? Dictated By: Kendra Wilson MD Signed By: Kendra Wilson MD Signed Date/Time: 01/19/22 1702 DD/ 1321 Discharge Plan Discharge Patient Disposition: Admitted As Inpatient Admit Provider: En Thomas Clinical Impression: Abdominal pain, UTI (urinary tract infection), Inability to walk Condition: Stable Coding Level of Care Code ED Skilled Helper for Chg Fwd Exam Comprehensive
--- NOTE | 2022-01-19 14:00 | PC.NURSE ---
PT REFUSES TO LET ME ESTABLISH IV IN BILAT ARMS STATING, YOU HAVE TO PUT IT UP HERE POINT TO HER CHEST AND BREAST. WITH PT VERBAL CONSENT IV PLACED IN RIGHT BREAST.
[2022-01-19 14:06] LABS: Basophils # 0.1 10^3/uL (0.0-0.1); Basophils % 0.8 %; Eosinophils # 0.2 10^3/uL (0.0-0.8); Hematocrit 42.8 % (37.0-47.0); Hemoglobin 13.5 g/dL (11.5-15.3); Lymphocytes # 1.5 10^3/uL (0.8-4.8); Lymphocytes % 16.5 %; Mean Corpuscular HGB Conc 31.5 g/dL (30.0-36.0); Mean Corpuscular Hemoglobin 27.4 pg (28.0-34.0); Mean Platelet Volume 9.8 fL (7.4-10.4); Monocytes # 0.5 10^3/uL (0.2-0.9); Monocytes % 5.6 %; Neutrophils # 6.95 10^3/uL (1.8-7.7); Neutrophils % 74.9 %; Nucleated Red Blood Cells % 0 %; Platelet Count 276 10^3/cmm (130-400); Red Blood Count 4.92 10^6/uL (4.1-5.3); Red Cell Distribution Width 15.1 % (12.1-15.1); White Blood Count 9.3 10^3/uL (4.0-10.0)
[2022-01-19 14:32] LABS: Add Urine Microscopic? YES; Bilirubin Urine Neg (Negative); Blood Urine Neg (Negative); Glucose Urine UA Norm (Normal); Ketones Urine Negative (Negative); Leukocyte Esterase Urine 1+ (Negative); Nitrate Urine Positive (Negative); Protein Urine Neg (Negative); Urine Appearance Cloudy (CLEAR); Urine Color Yellow (Yellow); Urobilinogen Urine 4 mg/dL (Negative); pH Urine 5 (5-7)
[2022-01-19 14:33] LABS: Add Urine Culture? Yes; Alanine Aminotransferase < 5 U/L (0-33); Albumin Level 3.6 g/dL (3.5-5.2); Alkaline Phosphatase 83 IU/L (35-105); Bacteria Urine 4+ /hpf; Blood Urea Nitrogen 8 mg/dL (8-23); Calcium 9.4 mg/dL (8.5-10.5); Carbon Dioxide 26 mmol/L (22-29); Chloride 100 mmol/L (98-107); Glucose 103 mg/dL (65-115); Lipase 26 U/L (13-60); Osmolality Calculated 283 mOsm/kg (285-295); Sodium 137 mmol/L (136-145); Squamous Epithelial Cell Urine 0-4 /hpf (0-5); Total Bilirubin 0.3 mg/dL (0.15-1.2); Total Protein 6.6 g/dL (6.6-8.7); WBC Urine >100 /hpf (0-5)
[2022-01-19 14:37] LABS: Anion Gap 14.7 (5-19); Aspartate Amino Transferase 9 U/L (0-32); Potassium 3.7 mmol/L (3.5-5.1)
[2022-01-19 15:04] LABS: Lactate (Lactic Acid level) 0.9 mmol/L (0.5-2.2)
[2022-01-19] MEDS: cefTRIAXone 1,000 MG in sodium chloride 0.9% (plus) 50 ML 100 MG IV (15:11)
--- NOTE | 2022-01-19 16:03 | PC.NURSE ---
PATIENT RESTING IN BED. EYES CLOSED. PATIENT DID NOT VERBALIZE ANY FURTHER NEEDS AT THIS TIME
[2022-01-19] MEDS: iohexol 300 mg/mL 100 mL Btl IV (16:22)
--- NOTE | 2022-01-19 17:30 | PC.NURSE ---
DR. WOOD AT BEDSIDE WITH PT.
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
[2022-01-19 18:49] LABS: C Reactive Protein 23.6 mg/L (0.0-4.9)
[2022-01-19 18:55] LABS: Procalcitonin 0.06 ng/mL (0-0.5)
--- NOTE | 2022-01-19 19:08 | PC.NURSE ---
REPORT GIVEN TO SHARLENE CARVER
--- NOTE | 2022-01-19 21:29 | CTR_ITS ---
PROCEDURE INFORMATION: Exam: CTA Chest With Contrast Exam date and time: 01/19/2022 9:29 PM Age: 66 years old Clinical indication: Shortness of breath and wheezing; Prior surgery; Surgery type: Chest port. ; Patient HX: SOB with wheezing. History of copd. Elevated d dimer. ; Additional info: SOB, wheezing TECHNIQUE: Imaging protocol: Computed tomographic angiography of the chest with contrast. 3D rendering (Not supervised by radiologist): MIP and/or 3D reconstructed images were created by the technologist. Radiation optimization: All CT scans at this facility use at least one of these dose optimization techniques: automated exposure control; mA and/or kV adjustment per patient size (includes targeted exams where dose is matched to clinical indication); or iterative reconstruction. Contrast material: [id number]/VISI 320; Contrast volume: 148 ml; Contrast route: INTRAVENOUS (IV); COMPARISON: CR XR chest 1V portable [id number] 07/25/2020 5:57 PM RADIATION DOSE METRICS: Total DLP (mGy-cm): 1007.87 FINDINGS: Tubes, catheters and devices: Right-sided Port-A-Cath. Pulmonary arteries: Normal. No pulmonary emboli. Aorta: Unremarkable. No aortic aneurysm. No aortic dissection. Lungs: Right middle lobe and bibasilar subsegmental atelectasis versus infiltrate. Pleural spaces: Unremarkable. No pneumothorax. No pleural effusion. Heart: Unremarkable. No cardiomegaly. No pericardial effusion. Lymph nodes: Several enlarged mediastinal lymph nodes measuring up to 12.5 mm, nonspecific. Bones/joints: Unremarkable. No acute fracture. Soft tissues: Unremarkable. CT/CT angio chest [place] prot [id number] IMPRESSION: 1. Several enlarged mediastinal lymph nodes measuring up to 12.5 mm, nonspecific. 2. Right middle lobe and bibasilar subsegmental atelectasis versus infiltrate.
[2022-01-19] MEDS: ipratropium-albuterol 3 mL Neb INHALATION (21:52)
[2022-01-19] MEDS: budesonide 0.5 mg/2 mL Neb INHALATION (21:52)
[2022-01-19] MEDS: enoxaparin 40 mg/0.4 mL Syringe SUBCUT (22:50)
[2022-01-19] MEDS: FUROsemide 10 mg/mL SDV 4mL 40 MG IVP (22:51)
[2022-01-19] MEDS: pantoprazole 40 mg SDV IVP (22:51)
[2022-01-19] MEDS: nystatin powder 15 gm Btl 1 APPLIC TOPICAL (22:55)
[2022-01-19] MEDS: piperacillin-tazobactam 3.375 GM in sodium chloride 0.9% (plus) 50 ML IV (23:01)
[2022-01-19 23:10] LABS: Carcinoembryonic Antigen 45.8 ng/mL (0.0-4.7)
[2022-01-20] VITALS (13 sets, daily range): BP systolic 110–118; BP diastolic 59–80; PULSE 61–91; RESP 12–17; TEMP 36.6–37.1; O2SAT 92–99
[2022-01-20] MEDS: iohexol 350 mg/mL 100 mL Btl IV (00:24)
[2022-01-20] MEDS: iodixanol 320 mg/mL 100mL Btl IV (00:25)
[2022-01-20] MEDS: piperacillin-tazobactam 3.375 GM in sodium chloride 0.9% (plus) 50 ML IV ×3 (05:24→21:17)
[2022-01-20 06:26] LABS: Basophils % 0.1 %; Eosinophils % 0.1 %; Hematocrit 44.6 % (37.0-47.0); Hemoglobin 13.9 g/dL (11.5-15.3); Lymphocytes # 0.5 10^3/uL (0.8-4.8); Lymphocytes % 6.9 %; Mean Corpuscular HGB Conc 31.2 g/dL (30.0-36.0); Mean Corpuscular Volume 86.8 fl (81-99); Mean Platelet Volume 9.3 fL (7.4-10.4); Monocytes % 0.6 %; Neutrophils # 6.54 10^3/uL (1.8-7.7); Neutrophils % 91.9 %; Nucleated Red Blood Cells % 0 %; Platelet Count 270 10^3/cmm (130-400); Red Blood Count 5.14 10^6/uL (4.1-5.3); White Blood Count 7.1 10^3/uL (4.0-10.0)
[2022-01-20 06:41] LABS: Estmated Average Glucose 117; Hemoglobin A1C 5.7 % (4.0-6.0)
[2022-01-20 06:54] LABS: Alanine Aminotransferase < 5 U/L (0-33); Albumin Level 3.5 g/dL (3.5-5.2); Alkaline Phosphatase 76 IU/L (35-105); Anion Gap 12.8 (5-19); Aspartate Amino Transferase 5 U/L (0-32); Blood Urea Nitrogen 6 mg/dL (8-23); Calcium 9.1 mg/dL (8.5-10.5); Carbon Dioxide 28 mmol/L (22-29); Chloride 101 mmol/L (98-107); Globulin 2.6 g/dL (1.3-4.6); Glomerular Filtration Rate 160.7 mL/min (90-130); Glucose 165 mg/dL (65-115); Magnesium 2.3 mg/dL (1.7-2.3); Osmolality Calculated 287 mOsm/kg (285-295); Phosphorus 4.2 mg/dL (2.5-4.5); Potassium 3.8 mmol/L (3.5-5.1); Sodium 138 mmol/L (136-145); Thyroid Stimulating Hormone 1.45 uIU/mL (0.27-4.20); Total Bilirubin 0.3 mg/dL (0.15-1.2); Total Protein 6.1 g/dL (6.6-8.7)
[2022-01-20 06:55] LABS: Chol HDL Ratio 2.87 mg/dL (0.0-4.40); Cholesterol 135 mg/dL (0-200); HDL Cholesterol 47 mg/dL (60-100); LDL Cholesterol Calculated 75 mg/dL (50-129); NT Pro B Type Natriuretic Pept 779 pg/mL (0-125); Triglycerides 67 mg/dL (0-150)
[2022-01-20] MEDS: ipratropium-albuterol 3 mL Neb INHALATION ×4 (08:16→19:15)
[2022-01-20] MEDS: budesonide 0.5 mg/2 mL Neb INHALATION ×2 (08:16→19:15)
[2022-01-20] MEDS: trazodone 50 mg Tablet PO (08:57)
[2022-01-20] MEDS: pantoprazole 40 mg SDV IVP ×2 (08:57→21:17)
[2022-01-20] MEDS: citalopram 20 mg Tablet PO (08:57)
[2022-01-20] MEDS: metoprolol tartrate 25 mg Tablet PO (08:57)
[2022-01-20] MEDS: oxybutynin chloride XL 5 MG TABLET 10 MG PO (09:01)
[2022-01-20] MEDS: nystatin powder 15 gm Btl 1 APPLIC TOPICAL ×2 (09:01→17:18)
[2022-01-20] MEDS: FUROsemide 10 mg/mL SDV 4mL 40 MG IVP (09:59)
--- NOTE | 2022-01-20 14:21 | PM.PN ---
Subjective Subjective: Patient was seen this morning, she sitting up in bed, she tells me that she feels a lot better, her breathing is improved, her abdominal pain is well controlled, he continues to have bowel movements, I discussed her CT scan findings, the anterior abdominal wall mass, she is agreeable to proceeding with biopsy, discussed risks and benefits of biopsy, she voiced understanding, all questions answered, agreed to proceed Vitals/I&O/Wt Last Vital Signs Temp 98.6 F 01/20/22 07:17 Pulse 62 01/20/22 12:50 Resp 16 01/20/22 12:50 BP 110/59 01/20/22 11:48 Pulse Ox 93 01/20/22 12:50 01/19/22 01/20/22 01/20/22 22:59 06:59 14:59 Intake Total 170 / 170 50 / 220 550 / 550 Output Total 3250 / 3250 1000 / 1000 Balance 170 / 170 -3200 / -3030 -450 / -450 Weight last 48 hrs Weight 146.057 kg Weight 145.15 kg Physical Exam Const: COMMON NORMALS: no acute distress and patient oriented x3 Resp: COMMON NORMALS: normal respiratory effort, No retractions and No use of accessory muscles AUSCULTATION: wheezes Cardio: COMMON NORMALS: regular rate, regular rhythm, S1 normal heart sound present and S2 normal heart sound present RATE: regular rate RHYTHM: regular rhythm HEART SOUNDS: S1 normal heart sound present and S2 normal heart sound present GI: COMMON NORMALS: Normal to inspection, nondistended, normoactive bowel sounds present, Soft to palpation, non-tender and No hepatosplenomegaly present PALPATION: Yes Soft to palpation and Yes No hepatosplenomegaly present Extremity: NARRATIVE EXTREMITY EXAM: 2+ pitting edema bilateral lower extremities Neuro: COMMON NORMALS: patient oriented x3 Psych: COMMON NORMALS: mental status grossly normal Urinary Catheter Management: Alvarez: Cath Placed During This Visit: yes Reason for Continuing Indwelling Catheter: Other Urinary Catheter Date of Insertion: 01/19/22 Urinary Catheter Time of Insertion: 13:38 Data : 01/20/22 06:17 01/20/22 06:17 Micro: Microbiology 01/19/22 Unknown Blood Culture - Preliminary Blood SPECIMEN COLLECTED 01/19/22 18:00 Gram Stain - Final Sputum - Expectorated Sputum Sputum Culture - Preliminary 01/19/22 13:55 Bacterial Antigens - Final Urine,Clean Catch 01/19/22 13:55 Urine Culture - Preliminary Urine,Clean Catch Gram Negative Rods 01/19/22 13:55 Legionella Urinary Antigen - Final Urethra 01/19/22 13:55 Blood Culture - Preliminary Blood SPECIMEN COLLECTED A&P Assessment and plan (1) Acute and chronic respiratory failure: Status: Acute (2) Abdominal pain: Status: Acute (3) UTI (urinary tract infection): Status: Acute (4) Inability to walk: Status: Acute (5) Abdominal mass: Status: Acute (6) Anxiety and depression: Status: Acute (7) Morbid obesity with body mass index (BMI) of 50.0 to 59.9 in adult: Status: Acute (8) H/O malignant neoplasm of colon: Status: Acute (9) COPD (chronic obstructive pulmonary disease): Status: Acute Qualifiers: COPD type: unspecified COPD Qualified Code(s): J44.9 - Chronic obstructive pulmonary disease, unspecified (10) CHF (congestive heart failure): Status: Chronic Qualifiers: Heart failure type: unspecified Heart failure chronicity: chronic Qualified Code(s): I50.9 - Heart failure, unspecified Plan Acute on chronic respiratory failure -Secondary to COPD exacerbation, diastolic exacerbation -CT angiogram 1. Several enlarged mediastinal lymph nodes measuring up to 12.5 mm, nonspecific. 2. Right middle lobe and bibasilar subsegmental atelectasis versus infiltrate. -Solu-Medrol 40mg every 12 hours -Continue Zosyn for antibiotic coverage -Ipratropium, budesonide -Lasix therapy -Monitor respiratory status closely -Uses AVAPS during the night, BiPAP as inpatient -Full code -Lovenox for DVT prophylaxis UTI, continue Zosyn Multiple DTI's, over the back, with nursing staff will rotate her I will examine COPD, exacerbation as above Diastolic CHF exacerbation, as above History of colon cancer, history of port placement, partial colectomy, ileocolonic anastomosis, history of chemotherapy History of uterine cancer Abdominal wall mass -She was seen at [facility], after a fall, was diagnosed with a left rectus sheath mass, thought to be hematoma, roughly 10 cm in diameter -Now found to have 3. Left inguinal and left iliac lymphadenopathy. Large mass in the anterior abdominal wall over the left lower quadrant extending into the subcutaneous tissues over the abdomen. Findings are suspicious for metastatic foci. 4. There is narrowing of the the superior mesenteric vein just proximal to the portal confluence. There are associated varices and collateral vessels in the mesentery as well as bilateral anterior subcutaneous collaterals. Etiology is uncertain, this could be due to sequela of postsurgical or postradiation changes or could represent sequela of chronic venous thrombosis. There is no evidence for acute venous thrombosis however. -Has a history of colon cancer as above -CEA level 45.8 -N.p.o. midnight, biopsy tomorrow morning -Morphine for pain control Attestations Medical Necessity Statement*: Patient requires hospitalization due to abdominal wall mass, COPD exacerbation, diastolic CHF exacerbation Coding Level of Care Code Acute Financial Sales Consultant for [facility] Fwd Diagnoses Acute and chronic respiratory failure J96.20 Abdominal pain R10.9 UTI (urinary tract infection) N39.0 Inability to walk R26.2 Abdominal mass R19.00 Anxiety and depression F41.9; F32.9 Morbid obesity with body mass index (BMI) of 50.0 to 59.9 in adult E66.01; Z68.43 H/O malignant neoplasm of colon Z85.038 COPD (chronic obstructive pulmonary disease) J44.9 COPD type: unspecified COPD CHF (congestive heart failure) I50.9 Heart failure type: unspecified Heart failure chronicity: chronic
--- NOTE | 2022-01-20 17:25 | PC.NURSE ---
Vitals stable. Abx given as ordered. Patient refused to let me look at backside and give a bath. Nystatin powder applied. Alvarez intact and having adequate output. No pain or bowel movements today. Will continue to monitor and give report to night nurse.
[2022-01-21] VITALS (18 sets, daily range): BP systolic 94–129; BP diastolic 54–70; PULSE 53–80; RESP 14–20; TEMP 36.2–37.1; O2SAT 91–97
[2022-01-21 02:55] LABS: Basophils % 0.1 %; Hematocrit 40.8 % (37.0-47.0); Hemoglobin 12.4 g/dL (11.5-15.3); Lymphocytes # 0.5 10^3/uL (0.8-4.8); Lymphocytes % 6.1 %; Mean Corpuscular HGB Conc 30.4 g/dL (30.0-36.0); Mean Corpuscular Hemoglobin 27.2 pg (28.0-34.0); Mean Corpuscular Volume 89.5 fl (81-99); Mean Platelet Volume 9.6 fL (7.4-10.4); Monocytes # 0.2 10^3/uL (0.2-0.9); Monocytes % 2.7 %; Neutrophils # 7.98 10^3/uL (1.8-7.7); Neutrophils % 90.9 %; Nucleated Red Blood Cells % 0 %; Platelet Count 260 10^3/cmm (130-400); Red Blood Count 4.56 10^6/uL (4.1-5.3); Red Cell Distribution Width 14.9 % (12.1-15.1); White Blood Count 8.8 10^3/uL (4.0-10.0)
[2022-01-21 03:05] LABS: INR 1.03 (0.8-1.2)
[2022-01-21 03:16] LABS: Alanine Aminotransferase < 5 U/L (0-33); Albumin Level 3.5 g/dL (3.5-5.2); Alkaline Phosphatase 66 IU/L (35-105); Aspartate Amino Transferase 8 U/L (0-32); Blood Urea Nitrogen 9 mg/dL (8-23); Calcium 9.1 mg/dL (8.5-10.5); Carbon Dioxide 31 mmol/L (22-29); Globulin 2.3 g/dL (1.3-4.6); Glomerular Filtration Rate 124.2 mL/min (90-130); Glucose 177 mg/dL (65-115); Magnesium 2.5 mg/dL (1.7-2.3); Phosphorus 3.2 mg/dL (2.5-4.5); Total Bilirubin 0.2 mg/dL (0.15-1.2); Total Protein 5.8 g/dL (6.6-8.7)
[2022-01-21 03:25] LABS: Anion Gap 11.7 (5-19); Chloride 100 mmol/L (98-107); Osmolality Calculated 291 mOsm/kg (285-295); Potassium 3.7 mmol/L (3.5-5.1); Sodium 139 mmol/L (136-145)
[2022-01-21] MEDS: piperacillin-tazobactam 3.375 GM in sodium chloride 0.9% (plus) 50 ML IV ×3 (05:13→21:12)
[2022-01-21] MEDS: budesonide 0.5 mg/2 mL Neb INHALATION ×2 (08:01→20:27)
[2022-01-21] MEDS: ipratropium-albuterol 3 mL Neb INHALATION ×3 (08:01→20:27)
[2022-01-21] MEDS: nystatin powder 15 gm Btl 1 APPLIC TOPICAL ×2 (08:17→17:32)
[2022-01-21] MEDS: citalopram 20 mg Tablet PO (08:17)
[2022-01-21] MEDS: trazodone 50 mg Tablet PO (08:17)
[2022-01-21] MEDS: pantoprazole 40 mg SDV IVP ×2 (08:17→21:12)
[2022-01-21] MEDS: oxybutynin chloride XL 5 MG TABLET 10 MG PO (08:21)
--- NOTE | 2022-01-21 11:58 | PM.PN ---
Subjective Subjective: Patient was seen this morning, she tells me that she had a good night her breathing has significantly improved, no fevers overnight, she is awaiting her biopsy Vitals/I&O/Wt Last Vital Signs Temp 98.2 F 01/21/22 11:54 Pulse 66 01/21/22 11:54 Resp 20 H 01/21/22 11:54 BP 129/67 01/21/22 11:54 Pulse Ox 92 01/21/22 11:54 01/20/22 01/21/22 01/21/22 22:59 06:59 14:59 Intake Total 530 / 1080 250 / 1330 50 / 50 Output Total 750 / 1750 300 / 2050 Balance -220 / -670 -50 / -720 50 / 50 Weight last 48 hrs Weight 146.057 kg Weight 145.15 kg Physical Exam Const: COMMON NORMALS: no acute distress and patient oriented x3 Resp: COMMON NORMALS: normal respiratory effort, No retractions, No use of accessory muscles and clear to auscultation bilaterally AUSCULTATION: clear to auscultation bilaterally Cardio: COMMON NORMALS: regular rate, regular rhythm, S1 normal heart sound present and S2 normal heart sound present RATE: regular rate RHYTHM: regular rhythm HEART SOUNDS: S1 normal heart sound present and S2 normal heart sound present GI: COMMON NORMALS: Normal to inspection, nondistended, normoactive bowel sounds present, Soft to palpation, non-tender and No hepatosplenomegaly present PALPATION: Yes Soft to palpation and Yes No hepatosplenomegaly present Neuro: COMMON NORMALS: patient oriented x3 Psych: COMMON NORMALS: mental status grossly normal Skin: NARRATIVE SKIN EXAM: Continues to have 2+ pitting edema Urinary Catheter Management: Alvarez: Cath Placed During This Visit: yes Reason for Continuing Indwelling Catheter: Acute Urinary Retention or Obstruction Urinary Catheter Date of Insertion: 01/19/22 Urinary Catheter Time of Insertion: 13:38 Data : 01/21/22 02:40 01/21/22 02:40 Micro: Microbiology 01/19/22 Unknown Blood Culture - Preliminary Blood Staphylococcus sp coag neg 01/19/22 18:00 Gram Stain - Final Sputum - Expectorated Sputum Sputum Culture - Final 01/19/22 13:55 Blood Culture - Preliminary Blood NEGATIVE TO DATE 01/19/22 13:55 Bacterial Antigens - Final Urine,Clean Catch 01/19/22 13:55 Urine Culture - Preliminary Urine,Clean Catch Gram Negative Rods A&P Assessment and plan (1) Acute and chronic respiratory failure: Status: Acute (2) Abdominal pain: Status: Acute (3) UTI (urinary tract infection): Status: Acute (4) Inability to walk: Status: Acute (5) Abdominal mass: Status: Acute (6) Anxiety and depression: Status: Acute (7) Morbid obesity with body mass index (BMI) of 50.0 to 59.9 in adult: Status: Acute (8) H/O malignant neoplasm of colon: Status: Acute (9) COPD (chronic obstructive pulmonary disease): Status: Acute Qualifiers: COPD type: unspecified COPD Qualified Code(s): J44.9 - Chronic obstructive pulmonary disease, unspecified (10) CHF (congestive heart failure): Status: Chronic Qualifiers: Heart failure type: unspecified Heart failure chronicity: chronic Qualified Code(s): I50.9 - Heart failure, unspecified Plan Acute on chronic respiratory failure -Secondary to COPD exacerbation, diastolic exacerbation -CT angiogram 1. Several enlarged mediastinal lymph nodes measuring up to 12.5 mm, nonspecific. 2. Right middle lobe and bibasilar subsegmental atelectasis versus infiltrate. -Solu-Medrol 40mg every 24 hours -Continue Zosyn for antibiotic coverage, covering for possible ESBL, will de-escalate based on cultures, culture so far gram-negative rods -Ipratropium, budesonide -Lasix 40 mg, with metolazone, with potassium placement today -Monitor respiratory status closely -Uses AVAPS during the night, BiPAP as inpatient -Full code -Lovenox for DVT prophylaxis UTI, as above, continue Zosyn Multiple DTI's, over the back, continue repositioning COPD, exacerbation as above Diastolic CHF exacerbation, as above History of colon cancer, history of port placement, partial colectomy, ileocolonic anastomosis, history of chemotherapy History of uterine cancer Abdominal wall mass -She was seen at [facility], after a fall, was diagnosed with a left rectus sheath mass, thought to be hematoma, roughly 10 cm in diameter -Now found to have 3. Left inguinal and left iliac lymphadenopathy. Large mass in the anterior abdominal wall over the left lower quadrant extending into the subcutaneous tissues over the abdomen. Findings are suspicious for metastatic foci. 4. There is narrowing of the the superior mesenteric vein just proximal to the portal confluence. There are associated varices and collateral vessels in the mesentery as well as bilateral anterior subcutaneous collaterals. Etiology is uncertain, this could be due to sequela of postsurgical or postradiation changes or could represent sequela of chronic venous thrombosis. There is no evidence for acute venous thrombosis however. -Has a history of colon cancer as above -CEA level 45.8 -N.p.o. 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
--- NOTE | 2022-01-21 12:00 | US_ITS ---
WS: [id number] ULTRASOUND-GUIDED ABDOMINAL WALL MASS BIOPSY CLINICAL INFORMATION: biopsy mass COMPARISON: CT January 19, 2022 TECHNIQUE: The procedure including risk, benefits, and complications were discussed with the patient who agreed to proceed. Conscious sedation was utilized. Timeout was performed. Using sterile techniqu e, the patient was prepped and draped in the usual sterile fashion. Patient was positioned supine and ultrasound images were obtained through the abdomen. The large anterior abdominal wall mass eccentri c to the LEFT was selected. After 1% lidocaine using ultrasound guidance, an 18-gauge biopsy device w as advanced into the abdominal wall mass. Approximately 6 samples were obtained. No immediate complic ations. US/US biopsy [id number] IMPRESSION: 1. Multiple 18-gauge core samples were obtained of the LEFT anterior abdominal wall mass . No immediate complications.
[2022-01-21] MEDS: sodium chloride 0.9% 1,000 ML 30 ML IV (12:12)
[2022-01-21] MEDS: midazolam 1 mg/mL INJ 2 mL 2 MG IVP (12:35)
[2022-01-21] MEDS: fentaNYL 50 mcg/mL INJ 2mL IVP ×2 (12:36→12:44)
[2022-01-21] MEDS: midazolam 1 mg/mL INJ 2 mL IVP (12:44)
[2022-01-21] MEDS: FUROsemide 10 mg/mL SDV 4mL 40 MG IVP (13:34)
[2022-01-21] MEDS: potassium chloride ER 20 mEq Tablet 40 MEQ PO (13:34)
[2022-01-21] MEDS: metOLazone 5 MG Tablet 10 MG PO (13:34)
[2022-01-22] VITALS (13 sets, daily range): BP systolic 102–137; BP diastolic 55–75; PULSE 0–87; RESP 15–20; TEMP 36.4–37.2; O2SAT 93–96
[2022-01-22] MEDS: piperacillin-tazobactam 3.375 GM in sodium chloride 0.9% (plus) 50 ML IV (05:38)
[2022-01-22 06:10] LABS: Basophils % 0.1 %; Hematocrit 40.2 % (37.0-47.0); Hemoglobin 12.4 g/dL (11.5-15.3); Lymphocytes # 1.7 10^3/uL (0.8-4.8); Lymphocytes % 16.8 %; Mean Corpuscular HGB Conc 30.8 g/dL (30.0-36.0); Mean Corpuscular Hemoglobin 27.1 pg (28.0-34.0); Mean Platelet Volume 9.7 fL (7.4-10.4); Monocytes # 0.7 10^3/uL (0.2-0.9); Monocytes % 6.8 %; Neutrophils # 7.61 10^3/uL (1.8-7.7); Neutrophils % 76.2 %; Nucleated Red Blood Cells % 0 %; Platelet Count 273 10^3/cmm (130-400); Red Blood Count 4.57 10^6/uL (4.1-5.3); Red Cell Distribution Width 14.7 % (12.1-15.1)
[2022-01-22 06:21] LABS: Alanine Aminotransferase < 5 U/L (0-33); Alkaline Phosphatase 62 IU/L (35-105); Blood Urea Nitrogen 14 mg/dL (8-23); Calcium 9.3 mg/dL (8.5-10.5); Carbon Dioxide 25 mmol/L (22-29); Globulin 3.2 g/dL (1.3-4.6); Glomerular Filtration Rate 124.2 mL/min (90-130); Phosphorus 2.7 mg/dL (2.5-4.5); Total Bilirubin 0.3 mg/dL (0.15-1.2)
[2022-01-22 06:21] LABS: INR 1.08 (0.8-1.2)
[2022-01-22 06:39] LABS: Albumin Level 3.6 g/dL (3.5-5.2); Anion Gap 14.5 (5-19); Aspartate Amino Transferase 5 U/L (0-32); Chloride 95 mmol/L (98-107); Glucose 119 mg/dL (65-115); Magnesium 2.2 mg/dL (1.7-2.3); Osmolality Calculated 284 mOsm/kg (285-295); Potassium 3.5 mmol/L (3.5-5.1); Sodium 136 mmol/L (136-145); Total Protein 5.9 g/dL (6.6-8.7)
[2022-01-22] MEDS: metoprolol tartrate 25 mg Tablet PO (09:05)
[2022-01-22] MEDS: oxybutynin chloride XL 5 MG TABLET 10 MG PO (09:05)
[2022-01-22] MEDS: pantoprazole 40 mg SDV IVP ×2 (09:05→21:29)
[2022-01-22] MEDS: citalopram 20 mg Tablet PO (09:05)
[2022-01-22] MEDS: potassium chloride ER 20 mEq Tablet 40 MEQ PO (10:59)
[2022-01-22] MEDS: metOLazone 5 MG Tablet 10 MG PO (10:59)
[2022-01-22] MEDS: FUROsemide 10 mg/mL SDV 4mL 40 MG IVP (11:00)
--- NOTE | 2022-01-22 11:00 | P.PN_ITS ---
Subjective Subjective: Patient was seen this morning, she sitting up to the side of the bed, she tells that she is feeling better, biopsy site is minimally painful, Vitals/I&O/Wt Last Vital Signs Temp 97.5 F L 01/22/22 04:00 Pulse 67 01/22/22 08:00 Resp 18 01/22/22 08:00 BP 124/64 01/22/22 08:00 Pulse Ox 93 01/22/22 08:00 01/21/22 01/22/22 01/22/22 22:59 06:59 14:59 Intake Total 1090 / 1240 410 / 1650 Output Total 3200 / 3200 Balance 1090 / 1240 -2790 / -1550 Physical Exam Const: COMMON NORMALS: no acute distress and patient oriented x3 Resp: COMMON NORMALS: normal respiratory effort, No retractions, No use of accessory muscles and clear to auscultation bilaterally AUSCULTATION: clear to auscultation bilaterally Cardio: COMMON NORMALS: regular rate, regular rhythm, S1 normal heart sound present and S2 normal heart sound present RATE: regular rate RHYTHM: regular rhythm HEART SOUNDS: S1 normal heart sound present and S2 normal heart sound present GI: COMMON NORMALS: Normal to inspection, nondistended, normoactive bowel sounds present, Soft to palpation, non-tender and No hepatosplenomegaly present PALPATION: Yes Soft to palpation and Yes No hepatosplenomegaly present Extremity: NARRATIVE EXTREMITY EXAM: 1+ pitting edema bilateral lower extremities Neuro: COMMON NORMALS: patient oriented x3 Psych: COMMON NORMALS: mental status grossly normal Urinary Catheter Management: Alvarez: Cath Placed During This Visit: yes Reason for Continuing Indwelling Catheter: Other Urinary Catheter Date of Insertion: 01/19/22 Urinary Catheter Time of Insertion: 13:38 Data : 01/22/22 05:39 01/22/22 05:09 Micro: Microbiology 01/19/22 13:55 Urine Culture - Final Urine,Clean Catch Klebsiella pneumoniae 01/19/22 Unknown Blood Culture - Preliminary Blood Staphylococcus sp coag neg 01/19/22 18:00 Gram Stain - Final Sputum - Expectorated Sputum Sputum Culture - Final A&P Assessment and plan (1) Acute and chronic respiratory failure: Status: Acute (2) Abdominal pain: Status: Acute (3) UTI (urinary tract infection): Status: Acute (4) Inability to walk: Status: Acute (5) Abdominal mass: Status: Acute (6) Anxiety and depression: Status: Acute (7) Morbid obesity with body mass index (BMI) of 50.0 to 59.9 in adult: Status: Acute (8) H/O malignant neoplasm of colon: Status: Acute (9) COPD (chronic obstructive pulmonary disease): Status: Acute Qualifiers: COPD type: unspecified COPD Qualified Code(s): J44.9 - Chronic obstructive pulmonary disease, unspecified (10) CHF (congestive heart failure): Status: Chronic Qualifiers: Heart failure type: unspecified Heart failure chronicity: chronic Qualified Code(s): I50.9 - Heart failure, unspecified Plan Acute on chronic respiratory failure -Secondary to COPD exacerbation, diastolic exacerbation -CT angiogram 1. Several enlarged mediastinal lymph nodes measuring up to 12.5 mm, nonspecific. 2. Right middle lobe and bibasilar subsegmental atelectasis versus infiltrate. -Switch to prednisone 40 mg p.o. every 24 hours -Urine culture Klebsiella pneumonia, switch to cefdinir -Ipratropium, budesonide -Lasix 40 mg, with metolazone, with potassium placement today -Monitor respiratory status closely -Uses AVAPS during the night, BiPAP as inpatient -Full code -Lovenox for DVT prophylaxis UTI, as above, continue Zosyn Multiple DTI's, over the back, continue repositioning COPD, exacerbation as above Diastolic CHF exacerbation, as above History of colon cancer, history of port placement, partial colectomy, ileocolonic anastomosis, history of chemotherapy History of uterine cancer Abdominal wall mass -She was seen at [facility], after a fall, was diagnosed with a left rectus sheath mass, thought to be hematoma, roughly 10 cm in diameter -Now found to have 3. Left inguinal and left iliac lymphadenopathy. Large mass in the anterior abdominal wall over the left lower quadrant extending into the subcutaneous tissues over the abdomen. Findings are suspicious for metastatic foci. 4. There is narrowing of the the superior mesenteric vein just proximal to the portal confluence. There are associated varices and collateral vessels in the mesentery as well as bilateral anterior subcutaneous collaterals. Etiology is uncertain, this could be due to sequela of postsurgical or postradiation changes or could represent sequela of chronic venous thrombosis. There is no evidence for acute venous thrombosis however. 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
[2022-01-22] MEDS: nystatin powder 15 gm Btl 1 APPLIC TOPICAL (11:05)
[2022-01-22 11:32] LABS: CA 125 3.7 U/mL (0-35)
[2022-01-22] MEDS: ipratropium-albuterol 3 mL Neb INHALATION ×2 (11:40→15:58)
[2022-01-22] MEDS: predniSONE 20 mg Tablet 40 MG PO (12:14)
--- NOTE | 2022-01-22 14:35 | PC.SOCIAL ---
Pg 2 IMM Explained to pt Pg 2 IMM. No questions voiced. Provided pt a copy. Initialed, dated, & timed a copy & placed in chart.
--- NOTE | 2022-01-22 15:15 | PC.NURSE ---
Discussed patients topamax, told patient that our pharmacy does not have the medication, and if she had someone to bring the medication in she could take her own supply of the medication. pt stated that she does not currently have anyone to bring her the medication.
[2022-01-22] MEDS: cefdinir 300 MG CAPSULE PO (18:35)
[2022-01-22] MEDS: morphine 4 mg/mL SDV 1 mL 2 MG IVP (21:29)
[2022-01-22] MEDS: acetaminophen 325 mg Tablet 650 MG PO (21:29)
[2022-01-22] MEDS: trazodone 50 mg Tablet PO (21:29)
--- NOTE | 2022-01-22 21:46 | PC.NURSE ---
At 1949, this nurse was assessing the patient. When the martinez was being assessed, it was observed to be covered in fecal matter as well as the maxipad and bedpad. Pt was informed that her martinez needed to be cleaned as well as her buttocks and bedpads. Brisa WHITE was at bedside with this nurse to help clean the patient. The martinez was coated in dry fecal matter as well as the pubic region. Pt was asked to turn to her right side and hold onto the bedside rail with her left hand as we helped turn her. Pt began to scream stating her hips could not handle the pain and stated she was refusing to be cleaned up. This nurse educated the patient on the importance and necessity of needed to be cleaned to prevent skin issues and infection. Pt stated I hope I get sepsis and ! Both this nurse and the SCAFFOLD SETTER attempted to comfort the patient and reassure her we would be gentle and restated how she needed to be cleaned. Pt started shouting obsenities to this nurse and the SCAFFOLD SETTER and told both of us Get the fuck out of my room and don't fucking come back! Both this nurse and the SCAFFOLD SETTER left the room and Amalia RN (charge nurse) was notified. It is also noted the patient's roommate wanted to be moved because she was afraid of the patient's reaction. At 2009, this nurse received a phone call from patient's friend, Steven, asking what was going. Steven was given in detail the event which took place. He then stated the patient told him we were trying to put things up her butt. It was explained to Steven that was not the case and that the patient was sitting in fecal matter and she is refusing to be cleansed. Steven stated he would talk to her and try to reason with her. At 2114, this nurse received another call from Steven stating pt would be agreeable to be cleaned up as long as she was given a sedative. Pt was administered acetaminophen PO, trazadone PO, and morphine IVP. Pt was informed this nurse and SCAFFOLD SETTER would be back around 2200 to clean her up. Pt stated she did not want to be woke up to be cleaned. Pt was informed due to the nature of the situation from previously, she would be woke up. She tried to argue with this nurse and this nurse stated it was for everyone's safety involved for to be awake for the care being provided.
[2022-01-23] VITALS (13 sets, daily range): BP systolic 100–125; BP diastolic 55–77; PULSE 0–72; RESP 16–20; TEMP 36.5–37.1; O2SAT 90–97
[2022-01-23 06:07] LABS: Basophils % 0.2 %; Hematocrit 42.1 % (37.0-47.0); Hemoglobin 13.1 g/dL (11.5-15.3); Lymphocytes # 1.6 10^3/uL (0.8-4.8); Lymphocytes % 18.1 %; Mean Corpuscular HGB Conc 31.1 g/dL (30.0-36.0); Mean Corpuscular Volume 86.6 fl (81-99); Mean Platelet Volume 10.1 fL (7.4-10.4); Monocytes # 0.7 10^3/uL (0.2-0.9); Monocytes % 7.5 %; Neutrophils # 6.36 10^3/uL (1.8-7.7); Nucleated Red Blood Cells % 0 %; Platelet Count 244 10^3/cmm (130-400); Red Blood Count 4.86 10^6/uL (4.1-5.3); Red Cell Distribution Width 14.6 % (12.1-15.1); White Blood Count 8.6 10^3/uL (4.0-10.0)
[2022-01-23 06:20] LABS: INR 0.95 (0.8-1.2)
[2022-01-23 06:31] LABS: Alanine Aminotransferase < 5 U/L (0-33); Albumin Level 3.9 g/dL (3.5-5.2); Alkaline Phosphatase 64 IU/L (35-105); Aspartate Amino Transferase 5 U/L (0-32); Blood Urea Nitrogen 14 mg/dL (8-23); Calcium 9.6 mg/dL (8.5-10.5); Carbon Dioxide 40 mmol/L (22-29); Chloride 88 mmol/L (98-107); Globulin 2.3 g/dL (1.3-4.6); Glomerular Filtration Rate 124.2 mL/min (90-130); Glucose 133 mg/dL (65-115); Osmolality Calculated 280 mOsm/kg (285-295); Sodium 134 mmol/L (136-145); Total Bilirubin 0.3 mg/dL (0.15-1.2); Total Protein 6.2 g/dL (6.6-8.7)
[2022-01-23 06:40] LABS: NT Pro B Type Natriuretic Pept 323 pg/mL (0-125)
[2022-01-23] MEDS: citalopram 20 mg Tablet PO (07:34)
[2022-01-23] MEDS: oxybutynin chloride XL 5 MG TABLET 10 MG PO (07:34)
[2022-01-23] MEDS: pantoprazole 40 mg SDV IVP ×2 (07:34→20:33)
[2022-01-23] MEDS: predniSONE 20 mg Tablet 40 MG PO (07:34)
[2022-01-23] MEDS: polyethylene glycol 3350 Pkt 17 gm PO (07:34)
[2022-01-23] MEDS: cefdinir 300 MG CAPSULE PO ×2 (07:35→17:18)
[2022-01-23] MEDS: nystatin powder 15 gm Btl 1 APPLIC TOPICAL (07:35)
[2022-01-23] MEDS: potassium chloride ER 20 mEq Tablet 40 MEQ PO (09:57)
[2022-01-23] MEDS: ipratropium-albuterol 3 mL Neb INHALATION ×3 (11:24→20:00)
--- NOTE | 2022-01-23 13:48 | P.PN_ITS ---
Subjective Subjective: Patient was seen this morning, she is working with physical therapy, she is got up to the side of the bed, she is impressed with how she is improving, she is impressed in terms of her strength improvement, she shows me how she can get up to the side of the bed with the help of physical therapy -She tells me she had a difficult night, overnight nursing staff were trying to help her in bed, helping her clean her up, she thought she had heard him say that they were to put something in her rear end -Thinking on this again, she thinks that maybe she they meant that they were going to clean her up -She got quite upset, she did not want the nurses to touch her, and she told the nursing staff that if he were to come near her she would rip out their hearts -She is very sorry this morning, she did not mean what she said, she is very apologetic -She tells me that it was just a miscommunication and the snowballing affect, -She denies any suicidal ideation, denies any homicidal ideation, but tells me that whenever she gets angry she becomes like this -Denies feeling down or depressed -But does feel very anxious, does have anger outbursts -I advised patient to be kind to nursing staff, they they always think in her best interest, and they have her best interest at heart, and there working to help her -Again she is very apologetic -I spoke to nursing staff, currently she is very pleasant, no homicidal ideation, no suicidal ideation, denies hearing or seeing things are not there, sounds a lot like a miscommunication, I do not feel that currently she is a threat to staff. However I did advisedpatient that we take all threats towards nursing staff very seriously, she voiced understanding Vitals/I&O/Wt Last Vital Signs Temp 98.7 F 01/23/22 12:00 Pulse 67 01/23/22 12:00 Resp 18 01/23/22 12:00 BP 122/72 01/23/22 12:00 Pulse Ox 91 01/23/22 12:00 01/22/22 01/23/22 01/23/22 22:59 06:59 14:59 Intake Total 1050 / 1100 360 / 360 Output Total 3050 / 5400 1450 / 6850 Balance -2000 / -4300 -1450 / -5750 360 / 360 Physical Exam Const: COMMON NORMALS: no acute distress and patient oriented x3 Resp: COMMON NORMALS: normal respiratory effort, No retractions, No use of accessory muscles and clear to auscultation bilaterally AUSCULTATION: clear to auscultation bilaterally Cardio: COMMON NORMALS: regular rate, regular rhythm, S1 normal heart sound present and S2 normal heart sound present RATE: regular rate RHYTHM: regular rhythm HEART SOUNDS: S1 normal heart sound present and S2 normal heart sound present GI: COMMON NORMALS: Normal to inspection, nondistended, normoactive bowel sounds present, Soft to palpation, non-tender and No hepatosplenomegaly present PALPATION: Yes Soft to palpation and Yes No hepatosplenomegaly present Extremity: NARRATIVE EXTREMITY EXAM: 1+ pitting edema Neuro: COMMON NORMALS: patient oriented x3 Psych: COMMON NORMALS: mental status grossly normal Urinary Catheter Management: Alvarez: Cath Placed During This Visit: yes Reason for Continuing Indwelling Catheter: Accurate Measurement of Urinary Output in Critically Ill Patients Urinary Catheter Date of Insertion: 01/19/22 Urinary Catheter Time of Insertion: 13:38 Data : 01/23/22 05:14 01/23/22 05:14 Micro: Microbiology 01/19/22 Unknown Blood Culture - Final Blood Staphylococcus sp coag neg A&P Assessment and plan (1) Acute and chronic respiratory failure: Status: Acute (2) Abdominal pain: Status: Acute (3) UTI (urinary tract infection): Status: Acute (4) Inability to walk: Status: Acute (5) Abdominal mass: Status: Acute (6) Anxiety and depression: Status: Acute (7) Morbid obesity with body mass index (BMI) of 50.0 to 59.9 in adult: Status: Acute (8) H/O malignant neoplasm of colon: Status: Acute (9) COPD (chronic obstructive pulmonary disease): Status: Acute Qualifiers: COPD type: unspecified COPD Qualified Code(s): J44.9 - Chronic obstructive pulmonary disease, unspecified (10) CHF (congestive heart failure): Status: Chronic Qualifiers: Heart failure type: unspecified Heart failure chronicity: chronic Qualified Code(s): I50.9 - Heart failure, unspecified Plan Acute on chronic respiratory failure -Secondary to COPD exacerbation, diastolic exacerbation -CT angiogram 1. Several enlarged mediastinal lymph nodes measuring up to 12.5 mm, nonspecific. 2. Right middle lobe and bibasilar subsegmental atelectasis versus infiltrate. -Continue prednisone 40 mg p.o. every 24 hours -Urine culture Klebsiella pneumonia, switch to cefdinir -Ipratropium, budesonide -Diuresed over 11 L, hold Lasix for today as BUN and serum sodium has increased -Monitor respiratory status closely -Uses AVAPS during the night, BiPAP as inpatient -Full code -Lovenox for DVT prophylaxis UTI, as above, continue cefdinir Multiple DTI's, over the back, continue repositioning COPD, exacerbation as above Diastolic CHF exacerbation, as above History of colon cancer, history of port placement, partial colectomy, ileocolonic anastomosis, history of chemotherapy History of uterine cancer Abdominal wall mass -She was seen at [facility], after a fall, was diagnosed with a left rectus sheath mass, thought to be hematoma, roughly 10 cm in diameter -Now found to have 3. Left inguinal and left iliac lymphadenopathy. Large mass in the anterior abdominal wall over the left lower quadrant extending into the subcutaneous tissues over the abdomen. Findings are suspicious for metastatic foci. 4. There is narrowing of the the superior mesenteric vein just proximal to the portal confluence. There are associated varices and collateral vessels in the mesentery as well as bilateral anterior subcutaneous collaterals. Etiology is uncertain, this could be due to sequela of postsurgical or postradiation changes or could represent sequela of chronic venous thrombosis. There is no evidence for acute venous thrombosis however. 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
[2022-01-23] MEDS: budesonide 0.5 mg/2 mL Neb INHALATION (19:59)
[2022-01-24] VITALS (11 sets, daily range): BP systolic 114–128; BP diastolic 68–79; PULSE 51–107; RESP 16–18; TEMP 36.3–36.9; O2SAT 92–97
--- NOTE | 2022-01-24 04:14 | PC.NURSE ---
pt rested intermittently throughout shift. VSS. No complaints of pain. Alvarez catheter patent. Pt repositioned frequently. Hourly rounding done. All needs me.
[2022-01-24 05:25] LABS: Alanine Aminotransferase 6 U/L (0-33); Albumin Level 3.7 g/dL (3.5-5.2); Alkaline Phosphatase 64 IU/L (35-105); Anion Gap 11.4 (5-19); Aspartate Amino Transferase 7 U/L (0-32); Blood Urea Nitrogen 18 mg/dL (8-23); Calcium 8.7 mg/dL (8.5-10.5); Carbon Dioxide 35 mmol/L (22-29); Chloride 91 mmol/L (98-107); Globulin 2.7 g/dL (1.3-4.6); Glomerular Filtration Rate 124.2 mL/min (90-130); Glucose 124 mg/dL (65-115); NT Pro B Type Natriuretic Pept 345 pg/mL (0-125); Osmolality Calculated 281 mOsm/kg (285-295); Potassium 3.4 mmol/L (3.5-5.1); Sodium 134 mmol/L (136-145); Total Bilirubin 0.4 mg/dL (0.15-1.2); Total Protein 6.4 g/dL (6.6-8.7)
[2022-01-24 05:35] LABS: Hematocrit 45.6 % (37.0-47.0); Hemoglobin 14.2 g/dL (11.5-15.3); Mean Corpuscular HGB Conc 31.1 g/dL (30.0-36.0); Mean Corpuscular Volume 86.7 fl (81-99); Nucleated Red Blood Cells % 0 %; Platelet Count 221 10^3/cmm (130-400); Red Blood Count 5.26 10^6/uL (4.1-5.3); Red Cell Distribution Width 14.3 % (12.1-15.1); White Blood Count 9.9 10^3/uL (4.0-10.0)
[2022-01-24] MEDS: budesonide 0.5 mg/2 mL Neb INHALATION (07:45)
[2022-01-24] MEDS: ipratropium-albuterol 3 mL Neb INHALATION (07:45)
[2022-01-24] MEDS: metOLazone 5 MG Tablet PO (08:39)
[2022-01-24] MEDS: oxybutynin chloride XL 5 MG TABLET 10 MG PO (08:39)
[2022-01-24] MEDS: potassium chloride ER 20 mEq Tablet 40 MEQ PO (08:39)
[2022-01-24] MEDS: cefdinir 300 MG CAPSULE PO ×2 (08:39→17:40)
[2022-01-24] MEDS: predniSONE 20 mg Tablet 40 MG PO (08:41)
[2022-01-24] MEDS: metoprolol tartrate 25 mg Tablet PO (08:41)
[2022-01-24] MEDS: nystatin powder 15 gm Btl 1 APPLIC TOPICAL ×2 (08:42→17:39)
[2022-01-24] MEDS: citalopram 20 mg Tablet PO (08:42)
[2022-01-24] MEDS: FUROsemide 10 mg/mL SDV 4mL 40 MG IVP (08:42)
[2022-01-24] MEDS: pantoprazole 40 mg SDV IVP ×2 (08:42→21:07)
--- NOTE | 2022-01-24 09:54 | PC.SOCIAL ---
IMM update IMM updated with patient. Copy Pg 2 provided. Verbalized an understanding. Initialled, dated, timed, and placed in chart.
--- NOTE | 2022-01-24 14:44 | PM.PN ---
Subjective Subjective: Patient was seen this morning, she tells that she is feels a lot better on 3 L, she is moving more with physical therapy, no complaints of anger outburst, no complaints of anxiety Vitals/I&O/Wt Last Vital Signs Temp 98.4 F 01/24/22 11:34 Pulse 66 01/24/22 11:34 Resp 16 01/24/22 11:34 BP 127/75 01/24/22 11:34 Pulse Ox 93 01/24/22 11:34 01/23/22 01/24/22 01/24/22 22:59 06:59 14:59 Intake Total 240 / 840 600 / 1440 960 / 960 Output Total 2450 / 2450 300 / 2750 Balance -2210 / -1610 300 / -1310 960 / 960 Physical Exam Const: COMMON NORMALS: no acute distress and patient oriented x3 Resp: COMMON NORMALS: normal respiratory effort, No retractions, No use of accessory muscles and clear to auscultation bilaterally AUSCULTATION: clear to auscultation bilaterally Cardio: COMMON NORMALS: regular rate, regular rhythm, S1 normal heart sound present and S2 normal heart sound present RATE: regular rate RHYTHM: regular rhythm HEART SOUNDS: S1 normal heart sound present and S2 normal heart sound present GI: COMMON NORMALS: Normal to inspection, nondistended, normoactive bowel sounds present, Soft to palpation, non-tender and No hepatosplenomegaly present PALPATION: Yes Soft to palpation and Yes No hepatosplenomegaly present Extremity: COMMON NORMALS: no pedal edema Neuro: COMMON NORMALS: patient oriented x3 Psych: COMMON NORMALS: mental status grossly normal Urinary Catheter Management: Alvarez: Cath Placed During This Visit: yes Reason for Continuing Indwelling Catheter: Acute Urinary Retention or Obstruction Urinary Catheter Date of Insertion: 01/19/22 Urinary Catheter Time of Insertion: 13:38 Data : 01/24/22 04:35 01/24/22 04:35 Micro: Microbiology 01/19/22 Unknown Blood Culture - Final Blood Staphylococcus sp coag neg A&P Assessment and plan (1) Acute and chronic respiratory failure: Status: Acute (2) Abdominal pain: Status: Acute (3) UTI (urinary tract infection): Status: Acute (4) Inability to walk: Status: Acute (5) Abdominal mass: Status: Acute (6) Anxiety and depression: Status: Acute (7) Morbid obesity with body mass index (BMI) of 50.0 to 59.9 in adult: Status: Acute (8) H/O malignant neoplasm of colon: Status: Acute (9) COPD (chronic obstructive pulmonary disease): Status: Acute Qualifiers: COPD type: unspecified COPD Qualified Code(s): J44.9 - Chronic obstructive pulmonary disease, unspecified (10) CHF (congestive heart failure): Status: Chronic Qualifiers: Heart failure type: unspecified Heart failure chronicity: chronic Qualified Code(s): I50.9 - Heart failure, unspecified Plan Acute on chronic respiratory failure -Secondary to COPD exacerbation, diastolic exacerbation -CT angiogram 1. Several enlarged mediastinal lymph nodes measuring up to 12.5 mm, nonspecific. 2. Right middle lobe and bibasilar subsegmental atelectasis versus infiltrate. -Continue prednisone 40 mg p.o. every 24 hours -Urine culture Klebsiella pneumonia, switch to cefdinir -Ipratropium, budesonide -Diuresed over 11 L, 1 dose Lasix with metolazone, with potassium today -Monitor respiratory status closely -Uses AVAPS during the night, BiPAP as inpatient -Full code -Lovenox for DVT prophylaxis UTI, as above, continue cefdinir Multiple DTI's, over the back, continue repositioning COPD, exacerbation as above Diastolic CHF exacerbation, as above History of colon cancer, history of port placement, partial colectomy, ileocolonic anastomosis, history of chemotherapy History of uterine cancer Abdominal wall mass -She was seen at [facility], after a fall, was diagnosed with a left rectus sheath mass, thought to be hematoma, roughly 10 cm in diameter -Now found to have 3. Left inguinal and left iliac lymphadenopathy. Large mass in the anterior abdominal wall over the left lower quadrant extending into the subcutaneous tissues over the abdomen. Findings are suspicious for metastatic foci. 4. There is narrowing of the the superior mesenteric vein just proximal to the portal confluence. There are associated varices and collateral vessels in the mesentery as well as bilateral anterior subcutaneous collaterals. Etiology is uncertain, this could be due to sequela of postsurgical or postradiation changes or could represent sequela of chronic venous thrombosis. There is no evidence for acute venous thrombosis however. -Has a history of colon cancer as above -CEA level 45.8 -Status post biopsy -Morphine for pain control She was found to have vaginal bleeding after her procedure, she has no active complaints, status post hysterectomy, oophorectomy we will C125, will consider transvaginal ultrasound Anxiety, anger outburst, start Klonopin 0.5 mg 3 times daily as needed for anxiety Attestations Medical Necessity Statement*: Patient requires hospitalization due to COPD exacerbation, CHF exacerbation, abdominal mass Coding Level of Care Code Acute Upward Bound Director for [facility] Diagnoses Acute and chronic respiratory failure J96.20 Abdominal pain R10.9 UTI (urinary tract infection) N39.0 Inability to walk R26.2 Abdominal mass R19.00 Anxiety and depression F41.9; F32.9 Morbid obesity with body mass index (BMI) of 50.0 to 59.9 in adult E66.01; Z68.43 H/O malignant neoplasm of colon Z85.038 COPD (chronic obstructive pulmonary disease) J44.9 COPD type: unspecified COPD CHF (congestive heart failure) I50.9 Heart failure type: unspecified Heart failure chronicity: chronic
[2022-01-24] MEDS: trazodone 50 mg Tablet PO (21:07)
[2022-01-25] VITALS (14 sets, daily range): BP systolic 112–130; BP diastolic 57–74; PULSE 56–93; RESP 16–18; TEMP 36.3–36.9; O2SAT 91–95
[2022-01-25] MEDS: fixodent 39 gm Tube 1 APPLIC DENTAL (01:00)
[2022-01-25 05:03] LABS: Basophils % 0.1 %; Eosinophils # 0.2 10^3/uL (0.0-0.8); Eosinophils % 1.3 %; Hematocrit 49.5 % (37.0-47.0); Hemoglobin 14.8 g/dL (11.5-15.3); Lymphocytes # 1.9 10^3/uL (0.8-4.8); Lymphocytes % 16.7 %; Mean Corpuscular HGB Conc 29.9 g/dL (30.0-36.0); Mean Corpuscular Hemoglobin 26.9 pg (28.0-34.0); Mean Platelet Volume 9.7 fL (7.4-10.4); Monocytes # 0.8 10^3/uL (0.2-0.9); Monocytes % 6.5 %; Neutrophils # 8.61 10^3/uL (1.8-7.7); Neutrophils % 75.1 %; Nucleated Red Blood Cells % 0 %; Platelet Count 240 10^3/cmm (130-400); Red Cell Distribution Width 14.3 % (12.1-15.1); White Blood Count 11.5 10^3/uL (4.0-10.0)
[2022-01-25 05:32] LABS: Alanine Aminotransferase 7 U/L (0-33); Albumin Level 3.9 g/dL (3.5-5.2); Alkaline Phosphatase 72 IU/L (35-105); Anion Gap 12.8 (5-19); Aspartate Amino Transferase 7 U/L (0-32); Blood Urea Nitrogen 19 mg/dL (8-23); Calcium 9.6 mg/dL (8.5-10.5); Carbon Dioxide 36 mmol/L (22-29); Chloride 90 mmol/L (98-107); Glomerular Filtration Rate 160.7 mL/min (90-130); Glucose 149 mg/dL (65-115); NT Pro B Type Natriuretic Pept 266 pg/mL (0-125); Osmolality Calculated 287 mOsm/kg (285-295); Sodium 136 mmol/L (136-145); Total Bilirubin 0.3 mg/dL (0.15-1.2); Total Protein 6.9 g/dL (6.6-8.7)
[2022-01-25 05:47] LABS: Potassium 2.8 mmol/L (3.5-5.1)
[2022-01-25] MEDS: budesonide 0.5 mg/2 mL Neb INHALATION (08:00)
[2022-01-25] MEDS: ipratropium-albuterol 3 mL Neb INHALATION ×2 (08:00→15:11)
[2022-01-25] MEDS: pantoprazole 40 mg SDV IVP ×2 (08:40→20:20)
[2022-01-25] MEDS: lidocaine 1% 5 ML in potassium chloride premix 100 ML 25 ML IV ×2 (09:23→14:18)
[2022-01-25] MEDS: predniSONE 20 mg Tablet 40 MG PO (09:24)
[2022-01-25] MEDS: oxybutynin chloride XL 5 MG TABLET 10 MG PO (09:24)
[2022-01-25] MEDS: nystatin powder 15 gm Btl 1 APPLIC TOPICAL ×2 (09:24→18:17)
[2022-01-25] MEDS: citalopram 20 mg Tablet PO (09:24)
[2022-01-25] MEDS: metoprolol tartrate 25 mg Tablet PO (09:24)
[2022-01-25] MEDS: cefdinir 300 MG CAPSULE PO ×2 (09:24→18:16)
[2022-01-25] MEDS: polyethylene glycol 3350 Pkt 17 gm PO (09:25)
[2022-01-25] MEDS: CLONazepam 0.5 mg Tablet PO (09:54)
--- NOTE | 2022-01-25 13:27 | PM.PN ---
Subjective Medications: Medication Review Details: Patient was seen on 01/25/2022, getting up to the side of the bed, shortness of breath improving, bilateral extremity edema improving, denies any suicidal ideation, denies any anxiety or depression Vitals/I&O/Wt Last Vital Signs Temp 98.3 F 01/27/22 08:00 Pulse 68 01/27/22 13:25 Resp 16 01/27/22 13:25 BP 112/65 01/27/22 08:00 Pulse Ox 96 01/27/22 13:25 Physical Exam Const: COMMON NORMALS: no acute distress and patient oriented x3 Resp: COMMON NORMALS: normal respiratory effort, No retractions, No use of accessory muscles and clear to auscultation bilaterally AUSCULTATION: clear to auscultation bilaterally Cardio: COMMON NORMALS: regular rate, regular rhythm, S1 normal heart sound present and S2 normal heart sound present RATE: regular rate RHYTHM: regular rhythm HEART SOUNDS: S1 normal heart sound present and S2 normal heart sound present GI: COMMON NORMALS: Normal to inspection, nondistended, normoactive bowel sounds present, Soft to palpation, non-tender and No hepatosplenomegaly present PALPATION: Yes Soft to palpation and Yes No hepatosplenomegaly present Neuro: COMMON NORMALS: patient oriented x3 Urinary Catheter Management: Alvarez: Cath Placed During This Visit: yes, but has since been removed by the nurse Reason for Continuing Indwelling Catheter: Decision to DC Catheter Urinary Catheter Date of Insertion: 01/19/22 Urinary Catheter Time of Insertion: 13:38 Date Urinary Catheter Removed: 01/25/22 Time Urinary Catheter Discontinued: 10:55 Data : 01/27/22 05:11 01/27/22 10:10 A&P Assessment and plan (1) Acute and chronic respiratory failure: Status: Resolved (2) Abdominal pain: Status: Resolved (3) UTI (urinary tract infection): Status: Resolved (4) Inability to walk: Status: Resolved (5) Abdominal mass: Status: Acute (6) Anxiety and depression: Status: Acute (7) Morbid obesity with body mass index (BMI) of 50.0 to 59.9 in adult: Status: Acute (8) H/O malignant neoplasm of colon: Status: Acute (9) COPD (chronic obstructive pulmonary disease): Status: Acute Qualifiers: COPD type: unspecified COPD Qualified Code(s): J44.9 - Chronic obstructive pulmonary disease, unspecified (10) CHF (congestive heart failure): Status: Chronic Qualifiers: Heart failure type: unspecified Heart failure chronicity: chronic Qualified Code(s): I50.9 - Heart failure, unspecified Plan Acute on chronic respiratory failure -Secondary to COPD exacerbation, diastolic exacerbation -CT angiogram 1. Several enlarged mediastinal lymph nodes measuring up to 12.5 mm, nonspecific. 2. Right middle lobe and bibasilar subsegmental atelectasis versus infiltrate. -Continue prednisone 40 mg p.o. every 24 hours -Continue antibiotic therapy -Ipratropium, budesonide -Continue diuresis -Monitor respiratory status closely -Uses AVAPS during the night, BiPAP as inpatient -Full code -Lovenox for DVT prophylaxis UTI, as above, continue cefdinir Multiple DTI's, over the back, continue repositioning COPD, exacerbation as above Diastolic CHF exacerbation, as above History of colon cancer, history of port placement, partial colectomy, ileocolonic anastomosis, history of chemotherapy History of uterine cancer Abdominal wall mass -She was seen at [facility], after a fall, was diagnosed with a left rectus sheath mass, thought to be hematoma, roughly 10 cm in diameter -Now found to have 3. Left inguinal and left iliac lymphadenopathy. Large mass in the anterior abdominal wall over the left lower quadrant extending into the subcutaneous tissues over the abdomen. Findings are suspicious for metastatic foci. 4. There is narrowing of the the superior mesenteric vein just proximal to the portal confluence. There are associated varices and collateral vessels in the mesentery as well as bilateral anterior subcutaneous collaterals. Etiology is uncertain, this could be due to sequela of postsurgical or postradiation changes or could represent sequela of chronic venous thrombosis. There is no evidence for acute venous thrombosis however. 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
--- NOTE | 2022-01-25 13:27 | PC.NURSE ---
PRN clonopin pt requested prn clonopin d/t anxiety and nervousness to work with PT today. prn med administered prior to therapy. pt was able to participate with minimal issue with therapeutic response of medication.
[2022-01-25] MEDS: FUROsemide 40 mg Tablet PO (16:16)
[2022-01-25] MEDS: metOLazone 5 MG Tablet PO (16:16)
[2022-01-25] MEDS: trazodone 50 mg Tablet PO (20:20)
[2022-01-26] VITALS (12 sets, daily range): BP systolic 108–127; BP diastolic 66–80; PULSE 51–80; RESP 16–18; TEMP 36.4–37.1; O2SAT 88–95
[2022-01-26 03:04] LABS: Basophils % 0.2 %; Eosinophils # 0.1 10^3/uL (0.0-0.8); Eosinophils % 0.5 %; Hematocrit 45.7 % (37.0-47.0); Hemoglobin 14.4 g/dL (11.5-15.3); Lymphocytes # 1.9 10^3/uL (0.8-4.8); Lymphocytes % 14.6 %; Mean Corpuscular HGB Conc 31.5 g/dL (30.0-36.0); Mean Corpuscular Volume 85.7 fl (81-99); Mean Platelet Volume 9.8 fL (7.4-10.4); Monocytes # 0.7 10^3/uL (0.2-0.9); Monocytes % 5.8 %; Neutrophils # 10.09 10^3/uL (1.8-7.7); Neutrophils % 78.4 %; Nucleated Red Blood Cells % 0 %; Platelet Count 218 10^3/cmm (130-400); Red Blood Count 5.33 10^6/uL (4.1-5.3); Red Cell Distribution Width 14.1 % (12.1-15.1); White Blood Count 12.9 10^3/uL (4.0-10.0)
[2022-01-26 03:40] LABS: Alanine Aminotransferase 10 U/L (0-33); Albumin Level 3.9 g/dL (3.5-5.2); Alkaline Phosphatase 71 IU/L (35-105); Anion Gap 12.5 (5-19); Aspartate Amino Transferase 10 U/L (0-32); Blood Urea Nitrogen 19 mg/dL (8-23); Calcium 9.6 mg/dL (8.5-10.5); Carbon Dioxide 40 mmol/L (22-29); Chloride 86 mmol/L (98-107); Globulin 2.9 g/dL (1.3-4.6); Glomerular Filtration Rate 160.7 mL/min (90-130); Glucose 141 mg/dL (65-115); Magnesium 2.1 mg/dL (1.7-2.3); NT Pro B Type Natriuretic Pept 325 pg/mL (0-125); Osmolality Calculated 287 mOsm/kg (285-295); Phosphorus 2.8 mg/dL (2.5-4.5); Sodium 136 mmol/L (136-145); Total Bilirubin 0.5 mg/dL (0.15-1.2); Total Protein 6.8 g/dL (6.6-8.7)
[2022-01-26 03:49] LABS: Potassium 2.5 mmol/L (3.5-5.1)
[2022-01-26] MEDS: potassium chloride ER 20 mEq Tablet 60 MEQ PO (06:10)
[2022-01-26] MEDS: budesonide 0.5 mg/2 mL Neb INHALATION (07:35)
[2022-01-26] MEDS: ipratropium-albuterol 3 mL Neb INHALATION (07:35)
[2022-01-26] MEDS: citalopram 20 mg Tablet PO (07:55)
[2022-01-26] MEDS: predniSONE 20 mg Tablet 40 MG PO (07:55)
[2022-01-26] MEDS: oxybutynin chloride XL 5 MG TABLET 10 MG PO (07:55)
[2022-01-26] MEDS: cefdinir 300 MG CAPSULE PO ×2 (07:56→17:14)
[2022-01-26] MEDS: polyethylene glycol 3350 Pkt 17 gm PO (07:56)
[2022-01-26] MEDS: metOLazone 5 MG Tablet PO (07:56)
[2022-01-26] MEDS: metoprolol tartrate 25 mg Tablet PO (07:56)
[2022-01-26] MEDS: pantoprazole 40 mg SDV IVP ×2 (07:57→21:14)
[2022-01-26] MEDS: nystatin powder 15 gm Btl 1 APPLIC TOPICAL ×2 (07:57→17:14)
[2022-01-26] MEDS: lidocaine 1% 5 ML in potassium chloride premix 100 ML 25 ML IV (09:13)
--- NOTE | 2022-01-26 10:52 | P.PN_ITS ---
Subjective Subjective: Patient was seen this morning she with physical therapy got up using a wheeled walker, took 5 steps, toward the bedside commode, was able to sit down on the bedside commode, she tested that her edema significantly better, she is significant better, she thinks she can go home in a few days Vitals/I&O/Wt Last Vital Signs Temp 98.0 F 01/26/22 07:47 Pulse 65 01/26/22 07:47 Resp 18 01/26/22 07:47 BP 123/78 01/26/22 07:47 Pulse Ox 88 L 01/26/22 07:47 01/25/22 01/26/22 01/26/22 22:59 06:59 14:59 Intake Total 225 / 690 722.417 / 722.417 Output Total 900 / 900 Balance -675 / -210 722.417 / 722.417 Physical Exam Const: COMMON NORMALS: no acute distress and patient oriented x3 Resp: COMMON NORMALS: normal respiratory effort, No retractions, No use of accessory muscles and clear to auscultation bilaterally AUSCULTATION: clear to auscultation bilaterally Cardio: COMMON NORMALS: regular rate, regular rhythm, S1 normal heart sound present and S2 normal heart sound present RATE: regular rate RHYTHM: regular rhythm HEART SOUNDS: S1 normal heart sound present and S2 normal heart sound present GI: COMMON NORMALS: Normal to inspection, nondistended, normoactive bowel sounds present, Soft to palpation, non-tender and No hepatosplenomegaly present PALPATION: Yes Soft to palpation and Yes No hepatosplenomegaly present Extremity: NARRATIVE EXTREMITY EXAM: 1+ pitting edema bilateral lower extremities Neuro: COMMON NORMALS: patient oriented x3 Psych: COMMON NORMALS: mental status grossly normal Urinary Catheter Management: Alvarez: Cath Placed During This Visit: yes, but has since been removed by the nurse Reason for Continuing Indwelling Catheter: Decision to DC Catheter Urinary Catheter Date of Insertion: 01/19/22 Urinary Catheter Time of Insertion: 13:38 Date Urinary Catheter Removed: 01/25/22 Time Urinary Catheter Discontinued: 10:55 Data : 01/26/22 02:35 01/26/22 02:35 A&P Assessment and plan (1) Acute and chronic respiratory failure: Status: Acute (2) Abdominal pain: Status: Acute (3) UTI (urinary tract infection): Status: Acute (4) Inability to walk: Status: Acute (5) Abdominal mass: Status: Acute (6) Anxiety and depression: Status: Acute (7) Morbid obesity with body mass index (BMI) of 50.0 to 59.9 in adult: Status: Acute (8) H/O malignant neoplasm of colon: Status: Acute (9) COPD (chronic obstructive pulmonary disease): Status: Acute Qualifiers: COPD type: unspecified COPD Qualified Code(s): J44.9 - Chronic obstructive pulmonary disease, unspecified (10) CHF (congestive heart failure): Status: Chronic Qualifiers: Heart failure type: unspecified Heart failure chronicity: chronic Qualified Code(s): I50.9 - Heart failure, unspecified Plan Acute on chronic respiratory failure -Secondary to COPD exacerbation, diastolic exacerbation -CT angiogram 1. Several enlarged mediastinal lymph nodes measuring up to 12.5 mm, nonspecific. 2. Right middle lobe and bibasilar subsegmental atelectasis versus infiltrate. -Continue prednisone 40 mg p.o. every 24 hours -Urine culture Klebsiella pneumonia, switch to cefdinir -Ipratropium, budesonide -, 60 mEq potassium 2.5, receiving IV replacement -Recheck BMP in the evening -Diuresed over 14 L, 1 dose Lasix with metolazone, with potassium today -Monitor respiratory status closely -Uses AVAPS during the night, BiPAP as inpatient -Full code -Lovenox for DVT prophylaxis UTI, as above, continue cefdinir Multiple DTI's, over the back, continue repositioning COPD, exacerbation as above Diastolic CHF exacerbation, as above History of colon cancer, history of port placement, partial colectomy, ileo colonic anastomosis, history of chemotherapy History of uterine cancer Abdominal wall mass -She was seen at [facility], after a fall, was diagnosed with a left rectus sheath mass, thought to be hematoma, roughly 10 cm in diameter -Now found to have 3. Left inguinal and left iliac lymphadenopathy. Large mass in the anterior abdominal wall over the left lower quadrant extending into the subcutaneous tissues over the abdomen. Findings are suspicious for metastatic foci. 4. There is narrowing of the the superior mesenteric vein just proximal to the portal confluence. There are associated varices and collateral vessels in the mesentery as well as bilateral anterior subcutaneous collaterals. Etiology is uncertain, this could be due to sequela of postsurgical or postradiation changes or could represent sequela of chronic venous thrombosis. There is no evidence for acute venous thrombosis however. -Has a history of colon cancer as above -CEA level 45.8 -Status post biopsy -Morphine for pain control She was found to have vaginal bleeding after her procedure, she has no active complaints, status post hysterectomy, oophorectomy we will C125, will consider transvaginal ultrasound Anxiety, anger outburst, start Klonopin 0.5 mg 3 times daily as needed for anxiety Attestations Medical Necessity Statement*: Patient requires hospitalization for bilateral extremity edema, diastolic CHF, deconditioning Coding Level of Care Code Acute Critical Care Physician Assistant for [facility] Fwd Diagnoses Acute and chronic respiratory failure J96.20 Abdominal pain R10.9 UTI (urinary tract infection) N39.0 Inability to walk R26.2 Abdominal mass R19.00 Anxiety and depression F41.9; F32.9 Morbid obesity with body mass index (BMI) of 50.0 to 59.9 in adult E66.01; Z68.43 H/O malignant neoplasm of colon Z85.038 COPD (chronic obstructive pulmonary disease) J44.9 COPD type: unspecified COPD CHF (congestive heart failure) I50.9 Heart failure type: unspecified Heart failure chronicity: chronic
--- NOTE | 2022-01-26 12:13 | PC.OT ---
OT TREATMENT ATTEMPTED; PATIENT IS SLEEPING SOUNDLY. WILL ATTEMPT AGAIN AT A LATER TIME.
--- NOTE | 2022-01-26 13:38 | PC.SOCIAL ---
IMM Updated Updated pt on IMM. No questions voiced. Provided pt a copy. Initialed, dated, & timed copy in chart.
--- NOTE | 2022-01-26 15:26 | PC.OT ---
OT TREATMENT ATTEMPTED TWICE TODAY; 329 AND 152; PATIENT IS SLEEPING/SNORING AT BOTH ATTEMPTS AND DOES NOT AWAKEN WHEN I KNOCK ON HER DOOR OR CALL OUT HER NAME.
[2022-01-26] MEDS: FUROsemide 40 mg Tablet PO (15:56)
[2022-01-26] MEDS: potassium chloride ER 20 mEq Tablet 40 MEQ PO (15:56)
[2022-01-26] MEDS: trazodone 50 mg Tablet PO (21:14)
[2022-01-26 21:58] LABS: Blood Urea Nitrogen 19 mg/dL (8-23); Calcium 8.8 mg/dL (8.5-10.5); Carbon Dioxide 40 mmol/L (22-29); Chloride 86 mmol/L (98-107); Glomerular Filtration Rate 160.7 mL/min (90-130); Glucose 159 mg/dL (65-115); Osmolality Calculated 286 mOsm/kg (285-295); Sodium 135 mmol/L (136-145)
[2022-01-26 22:09] LABS: Anion Gap 12.1 (5-19); Potassium 3.1 mmol/L (3.5-5.1)
[2022-01-27 04:00] VITALS: BP 131/69; PULSE 85; RESP 16; TEMP 36.6; O2SAT 97
[2022-01-27 05:27] LABS: Basophils % 0.2 %; Eosinophils # 0.1 10^3/uL (0.0-0.8); Eosinophils % 0.9 %; Hematocrit 46.3 % (37.0-47.0); Hemoglobin 14.7 g/dL (11.5-15.3); Lymphocytes # 1.7 10^3/uL (0.8-4.8); Lymphocytes % 14.1 %; Mean Corpuscular HGB Conc 31.7 g/dL (30.0-36.0); Mean Corpuscular Hemoglobin 27.1 pg (28.0-34.0); Mean Corpuscular Volume 85.4 fl (81-99); Mean Platelet Volume 10.3 fL (7.4-10.4); Monocytes # 0.7 10^3/uL (0.2-0.9); Monocytes % 6.1 %; Neutrophils # 9.51 10^3/uL (1.8-7.7); Neutrophils % 78.2 %; Nucleated Red Blood Cells % 0 %; Platelet Count 177 10^3/cmm (130-400); Red Blood Count 5.42 10^6/uL (4.1-5.3); Red Cell Distribution Width 14.3 % (12.1-15.1); White Blood Count 12.2 10^3/uL (4.0-10.0)
[2022-01-27 05:57] VITALS: PULSE 69
[2022-01-27 08:00] VITALS: BP 112/65; PULSE 75; RESP 18; TEMP 36.8; O2SAT 92
[2022-01-27 08:28] VITALS: PULSE 68; RESP 16; O2SAT 96
[2022-01-27] MEDS: budesonide 0.5 mg/2 mL Neb INHALATION (08:28)
[2022-01-27] MEDS: ipratropium-albuterol 3 mL Neb INHALATION (08:28)
[2022-01-27] MEDS: predniSONE 20 mg Tablet 40 MG PO (08:34)
[2022-01-27] MEDS: citalopram 20 mg Tablet PO (08:34)
[2022-01-27] MEDS: metoprolol tartrate 25 mg Tablet PO (08:34)
[2022-01-27] MEDS: pantoprazole 40 mg SDV IVP (08:34)
[2022-01-27] MEDS: metOLazone 5 MG Tablet PO (08:34)
[2022-01-27] MEDS: potassium chloride ER 20 mEq Tablet 40 MEQ PO (09:45)
[2022-01-27] MEDS: oxybutynin chloride XL 5 MG TABLET 10 MG PO (09:45)
[2022-01-27] MEDS: cefdinir 300 MG CAPSULE PO (09:45)
[2022-01-27] MEDS: nystatin powder 15 gm Btl 1 APPLIC TOPICAL (09:47)
[2022-01-27 10:53] LABS: Alanine Aminotransferase 11 U/L (0-33); Alkaline Phosphatase 76 IU/L (35-105); Anion Gap 14.1 (5-19); Aspartate Amino Transferase 9 U/L (0-32); Blood Urea Nitrogen 21 mg/dL (8-23); Carbon Dioxide 39 mmol/L (22-29); Chloride 88 mmol/L (98-107); Globulin 2.5 g/dL (1.3-4.6); Glomerular Filtration Rate 100.6 mL/min (90-130); Glucose 193 mg/dL (65-115); Magnesium 2.1 mg/dL (1.7-2.3); NT Pro B Type Natriuretic Pept 202 pg/mL (0-125); Osmolality Calculated 294 mOsm/kg (285-295); Phosphorus 3.5 mg/dL (2.5-4.5); Potassium 3.1 mmol/L (3.5-5.1); Sodium 138 mmol/L (136-145); Total Bilirubin 0.6 mg/dL (0.15-1.2); Total Protein 6.5 g/dL (6.6-8.7)
--- NOTE | 2022-01-27 11:15 | P.DS_ITS ---
Discharge Providers Date of Admission: 01/19/22 17:47 Date of Discharge: January 27, 2022 Attending Provider at Admission: En Thomas MD Attending Provider at Discharge: En Thomas MD Primary Care Provider: THUY Marshall Diagnoses at Discharge Discharge Diagnosis (1) Acute and chronic respiratory failure: Status: Acute (2) Abdominal pain: Status: Acute (3) UTI (urinary tract infection): Status: Acute (4) Inability to walk: Status: Acute (5) Abdominal mass: Status: Acute (6) Anxiety and depression: Status: Acute (7) Morbid obesity with body mass index (BMI) of 50.0 to 59.9 in adult: Status: Acute (8) H/O malignant neoplasm of colon: Status: Acute (9) COPD (chronic obstructive pulmonary disease): Status: Acute Qualifiers: COPD type: unspecified COPD Qualified Code(s): J44.9 - Chronic obstructive pulmonary disease, unspecified (10) CHF (congestive heart failure): Status: Chronic Qualifiers: Heart failure type: unspecified Heart failure chronicity: chronic Qualified Code(s): I50.9 - Heart failure, unspecified Reason for Visit Reason for Visit: ABD PAIN Hospital Course Hospital Course Shavonne Mayberry is a 66 year old female with a past medical history of morbid obesity, chronic respiratory failure, history of pneumothorax requiring chest tube placement and mechanical ventilation from severe COPD, diastolic CHF, COPD, active smoker, 3 L, on AVAPS, was at 1 point on palliative care on hospice for acute respiratory failure, now off hospice, history of colon cancer status post chemotherapy, and with port in place, history of uterine cancer, history of anxiety, history of depression, who moved to [facility] from [facility] in 2019, who presents [facility] due to abdominal pain, and shortness of breath. Patient was admitted to [facility] for acute on chronic respiratory failure secondary to COPD, diastolic CHF, received inpatient antibiotic therapy, statin therapy, BiPAP as inpatient, diuresed over 14 L, clinically improved. Patient will be discharged on Lasix therapy, potassium placement, with close follow-up with me in the [place] [facility] in the next few days. Patient did have generalized weakness, trouble ambulating, received inpatient physical therapy, upon discharge she is able to ambulate a few feet to the bedside commode, initially she was agreeable to go to a residential, she changed her mind, she would like to be discharged home. Discharge home, under the care of her friend Steven She does have a history of abdominal wall mass, status post biopsy, follow-up with oncology as outpatient for biopsy results. Anxiety discharge her home Celexa, and Klonopin, Klonopin to be used sparingly, for anxiety episodes Physical Exam Const: COMMON NORMALS: no acute distress and patient oriented x3 Neck/C-Spine: COMMON NORMALS: no JVD Resp: COMMON NORMALS: normal respiratory effort, No retractions, No use of accessory muscles and clear to auscultation bilaterally AUSCULTATION: clear to auscultation bilaterally Cardio: COMMON NORMALS: no JVD, regular rate, regular rhythm, S1 normal heart sound present and S2 normal heart sound present RATE: regular rate RHYTHM: regular rhythm HEART SOUNDS: S1 normal heart sound present and S2 normal heart sound present GI: COMMON NORMALS: Normal to inspection, nondistended, normoactive bowel sounds present, Soft to palpation, non-tender and No hepatosplenomegaly present PALPATION: Yes Soft to palpation and Yes No hepatosplenomegaly present Extremity: COMMON NORMALS: no pedal edema Neuro: COMMON NORMALS: patient oriented x3 Psych: COMMON NORMALS: mental status grossly normal Urinary Catheter Management: Alvarez: Cath Placed During This Visit: yes, but has since been removed by the nurse Reason for Continuing Indwelling Catheter: Decision to DC Catheter Urinary Catheter Date of Insertion: 01/19/22 Urinary Catheter Time of Insertion: 13:38 Date Urinary Catheter Removed: 01/25/22 Time Urinary Catheter Discontinued: 10:55 Discharge Data Studies Completed and Pending Completed Studies During Hospitalization Category Date Time Status CT abdomen pelvis w con* [id number] Urgent Cat Scan 01/19/22 13:21 Completed CTA chest [CT angio chest PE protcl [id number]] Urgent Cat Scan 01/19/22 21:29 Completed US biopsy [id number] Routine Ultrasound 01/21/22 12:00 Completed Pending at discharge Category Date Time Status Complete Blood Count w/Auto AM LABS Lab 01/28/22 04:00 Ordered Comprehensive Metabolic Panel AM LABS Lab 01/28/22 04:00 Ordered Magnesium AM LABS Lab 01/28/22 04:00 Ordered NT Pro B Type Natriuretic Pept QAM Lab 01/28/22 06:00 Ordered Phosphorus AM LABS Lab 01/28/22 04:00 Ordered Pathology: Surgical [PTH] Routine Pth 01/21/22 13:00 Received Radiology Impressions Abdomen/Pelvis CT 01/19/22 13:21 IMPRESSION: 1. No acute abnormality in the abdomen or pelvis. 2. Patient has had a prior right partial colectomy and ileocolic anastomosis. 3. Left inguinal and left iliac lymphadenopathy. Large mass in the anterior abdominal wall over the left lower quadrant extending into the subcutaneous tissues over the abdomen. Findings are suspicious for metastatic foci. 4. There is narrowing of the the superior mesenteric vein just proximal to the portal confluence. There are associated varices and collateral vessels in the mesentery as well as bilateral anterior subcutaneous collaterals. Etiology is uncertain, this could be due to sequela of postsurgical or postradiation changes or could represent sequela of chronic venous thrombosis. There is no evidence for acute venous thrombosis however. 5. Mild body wall edema. 6. Nonobstructing right renal stone. 7. Incidental/nonacute findings are listed in the report. Chest CTA 01/19/22 21:29 IMPRESSION: 1. Several enlarged mediastinal lymph nodes measuring up to 12.5 mm, nonspecific. 2. Right middle lobe and bibasilar subsegmental atelectasis versus infiltrate. Biopsy Ultrasound 01/21/22 12:00 IMPRESSION: 1. Multiple 18-gauge core samples were obtained of the LEFT anterior abdominal wall mass . No immediate complications. Laboratory Results WBC 12.2 10^3/uL (4.0-10.0) H 01/27/22 05:11 Corrected WBC Cancelled 01/24/22 04:35 RBC 5.42 10^6/uL (4.1-5.3) H 01/27/22 05:11 Hgb 14.7 g/dL (11.5-15.3) 01/27/22 05:11 Hct 46.3 % (37.0-47.0) 01/27/22 05:11 MCV 85.4 fl (81-99) 01/27/22 05:11 MCH 27.1 pg (28.0-34.0) L 01/27/22 05:11 MCHC 31.7 g/dL (30.0-36.0) 01/27/22 05:11 RDW 14.3 % (12.1-15.1) 01/27/22 05:11 Plt Count 177 10^3/cmm (130-400) 01/27/22 05:11 MPV 10.3 fL (7.4-10.4) 01/27/22 05:11 Gran % Cancelled 01/24/22 04:35 Neut % (Auto) 78.2 % 01/27/22 05:11 Lymph % (Auto) 14.1 % 01/27/22 05:11 [place] % (Auto) 6.1 % 01/27/22 05:11 Eos % (Auto) 0.9 % 01/27/22 05:11 Baso % (Auto) 0.2 % 01/27/22 05:11 Neut # (Auto) 9.51 10^3/uL (1.8-7.7) H 01/27/22 05:11 Lymph # (Auto) 1.7 10^3/uL (0.8-4.8) 01/27/22 05:11 [place] # (Auto) 0.7 10^3/uL (0.2-0.9) 01/27/22 05:11 Eos # (Auto) 0.1 10^3/uL (0.0-0.8) 01/27/22 05:11 Baso # (Auto) 0.0 10^3/uL (0.0-0.1) 01/27/22 05:11 Absolute Gran (auto) Cancelled 01/24/22 04:35 Nucleated RBC % (auto) 0 % 01/27/22 05:11 Nucleated RBCs # 0.0 /100WBC 01/27/22 05:11 PT 13.00 SECONDS (12.1-14.9) 01/23/22 05:14 INR 0.95 (0.8-1.2) 01/23/22 05:14 Sodium 138 mmol/L (136-145) 01/27/22 10:10 Potassium 3.1 mmol/L (3.5-5.1) L 01/27/22 10:10 Chloride 88 mmol/L (98-107) L 01/27/22 10:10 Carbon Dioxide 39 mmol/L (22-29) H 01/27/22 10:10 Anion Gap 14.1 (5-19) 01/27/22 10:10 BUN 21 mg/dL (8-23) 01/27/22 10:10 Creatinine 0.6 mg/dL (0.5-0.9) 01/27/22 10:10 GFR Calculation 100.6 mL/min (90-130) 01/27/22 10:10 Glucose 193 mg/dL (65-115) H 01/27/22 10:10 Estimat Average Glucose 117 01/20/22 06:17 Hemoglobin A1c 5.7 % (4.0-6.0) 01/20/22 06:17 Calculated Osmolality 294 mOsm/kg (285-295) 01/27/22 10:10 Lactate 0.9 mmol/L (0.5-2.2) 01/19/22 13:55 Calcium 9.0 mg/dL (8.5-10.5) 01/27/22 10:10 Phosphorus 3.5 mg/dL (2.5-4.5) 01/27/22 10:10 Magnesium 2.1 mg/dL (1.7-2.3) 01/27/22 10:10 Total Bilirubin 0.6 mg/dL (0.15-1.2) 01/27/22 10:10 AST 9 U/L (0-32) 01/27/22 10:10 ALT 11 U/L (0-33) 01/27/22 10:10 Alkaline Phosphatase 76 IU/L (35-105) 01/27/22 10:10 C-Reactive Protein 23.6 mg/L (0.0-4.9) H 01/19/22 13:55 NT-Pro-B Natriuret Pep 202 pg/mL (0-125) H 01/27/22 10:10 Total Protein 6.5 g/dL (6.6-8.7) L 01/27/22 10:10 Albumin 4.0 g/dL (3.5-5.2) 01/27/22 10:10 Globulin 2.5 g/dL (1.3-4.6) 01/27/22 10:10 Triglycerides 67 mg/dL (0-150) 01/20/22 06:17 Cholesterol 135 mg/dL (0-200) 01/20/22 06:17 LDL Cholesterol, Calc 75 mg/dL (50-129) 01/20/22 06:17 HDL Cholesterol 47 mg/dL (60-100) L 01/20/22 06:17 LDL/HDL Ratio 1.60 RATIO (0.00-3.22) 01/20/22 06:17 Cholesterol/HDL Ratio 2.87 mg/dL (0.0-4.40) 01/20/22 06:17 Lipase 26 U/L (13-60) 01/19/22 13:55 Carcinoembryonic Ag 45.8 ng/mL (0.0-4.7) H 01/19/22 13:55 CA 125 Antigen 3.7 U/mL (0-35) 01/22/22 05:39 Procalcitonin 0.06 ng/mL (0-0.5) 01/19/22 13:55 TSH 1.45 uIU/mL (0.27-4.20) 01/20/22 06:17 Urine Color Yellow (Yellow) 01/19/22 13:55 Urine Appearance Cloudy (CLEAR) 01/19/22 13:55 Urine pH 5 (5-7) 01/19/22 13:55 Ur Specific [place] 1.020 (1.005-1.030) 01/19/22 13:55 Urine Protein Neg (Negative) 01/19/22 13:55 Urine Glucose (UA) Norm (Normal) 01/19/22 13:55 Urine Ketones Negative (Negative) 01/19/22 13:55 Urine Blood Neg (Negative) 01/19/22 13:55 Urine Nitrate Positive (Negative) H 01/19/22 13:55 Urine Bilirubin Neg (Negative) 01/19/22 13:55 Urine Urobilinogen 4 mg/dL (Negative) H 01/19/22 13:55 Ur Leukocyte Esterase 1+ (Negative) H 01/19/22 13:55 Urine RBC None /hpf (0-2) 01/19/22 13:55 Urine WBC >100 /hpf (0-5) H 01/19/22 13:55 Ur Squamous Epith Cells 0-4 /hpf (0-5) H 01/19/22 13:55 Amorphous Sediment Not Reportable 01/19/22 13:55 Urine Bacteria 4+ /hpf (NONE) H 01/19/22 13:55 Vitals Last Vital Signs Temp 98.3 F 01/27/22 08:00 Pulse 68 01/27/22 08:28 Resp 16 01/27/22 08:28 BP 112/65 01/27/22 08:00 Pulse Ox 96 01/27/22 08:28 Discharge Plan Discharge Patient Disposition: Home Condition: Stable Prescriptions: New clonazepam 0.5 mg Tablet 0.5 mg PO BID PRN (Reason: Anxiety) 7 Days Qty: 14 0RF potassium chloride [Klor-Con M20] 20 mEq Tablet,Er Particles/Crystals 40 meq PO Q24H 30 Days Qty: 60 0RF Continued (DME) rolling walker with seat bariatric See Rx Instructions .Route .MEDSUPPLY Qty: 1 0RF Rx Instructions: As directed (DME) bariatric drop arm commode See Rx Instructions .Route .MEDSUPPLY Qty: 1 0RF Rx Instructions: As directed (DME) Portable oxygen concentrator See Rx Instructions .Route .MEDSUPPLY Qty: 1 0RF Rx Instructions: As directed loperamide [Imodium A-D] 2 mg capsule 2 mg PO Q6H PRN (Reason: Diarrhea) 0RF Senna Plus 8.6-50 mg capsule 1 tab-cap PO BID PRN (Reason: Constipation) 0RF miscellaneous medical supply Misc See Rx Instructions miscellaneous .one 365 Days Qty: 1 0RF Rx Instructions: Patient needs SEMI ELECTRIC BED with HEAVY DUTY TRAPEZE. Needs EXTRA WIDE HEAVY DUTY BED with mattress due to wide girth polyethylene glycol 3350 [Miralax] 17 gram powder in packet 17 g PO DAILY 30 Days Qty: 30 0RF ondansetron HCl [Zofran] 4 mg tablet 4 mg PO Q6H PRN (Reason: nausea and vomiting) 30 Days Qty: 60 0RF nystatin 100,000 unit/gram powder 1 applic topical BID Qty: 60 0RF citalopram [Celexa] 20 mg tablet 20 mg PO DAILY 90 Days Qty: 90 1RF oxybutynin chloride 10 mg tablet extended release 24hr 10 mg PO DAILY 90 Days Qty: 90 0RF topiramate [Topamax] 25 mg capsule, sprinkle 25 mg PO BID 90 Days Qty: 180 1RF metoprolol tartrate 25 mg tablet 25 mg PO DAILY 90 Days Qty: 90 1RF trazodone 50 mg tablet 50 mg PO DAILY 90 Days Qty: 90 1RF Spiriva with HandiHaler 18 mcg capsule, w/inhalation device 1 cap inhalation DAILY 30 Days Qty: 30 3RF acetaminophen 650 mg suppository 650 mg MN Q4H PRN (Reason: Pain) 30 Days Qty: 0 0RF albuterol sulfate [Ventolin HFA] 90 mcg/actuation HFA aerosol inhaler 2 puff INHALATION Q6H PRN (Reason: shortness of breath or wheezing) 30 Days Qty: 8.5 0RF budesonide-formoterol 160-4.5 mcg/actuation HFA aerosol inhaler 2 puff inhalation BID 30 Days Qty: 10.2 6RF furosemide 40 mg tablet 40 mg PO DAILY 90 Days Qty: 90 0RF Discharge Orders: Discharge Order (Routine); Ordered 01/27/22 Ordered By: En Thomas Referrals: En Thomas MD [Hospitalist] - 01/29/22 10:30 am (APPOINTMENT WITH DR THOMAS [phone] AT [facility]) Bird Elder MD [Hospitalist] - 4-7 days Discharge Diet: Cardiac Discharge Activity: Resume usual activity Patient Instructions: Opioid Safety Activity Restrictions/Additional Instructions: -Continue ambulating -Monitor for falls -Continue Lasix once a day, with potassium -Follow-up with oncology in 1 week -Follow-up with me on Discharge Attestations Time Spent in Discharge Care*: less than 30 min Quality Metrics Clinical Quality Measures [ No reported AMI, CVA or VTE this stay] Coding Level of Care Code Acute Chg FW DC note Diagnoses Acute and chronic respiratory failure J96.20 Abdominal pain R10.9 UTI (urinary tract infection) N39.0 Inability to walk R26.2 Abdominal mass R19.00 Anxiety and depression F41.9; F32.9 Morbid obesity with body mass index (BMI) of 50.0 to 59.9 in adult E66.01; Z68.43 H/O malignant neoplasm of colon Z85.038 COPD (chronic obstructive pulmonary disease) J44.9 COPD type: unspecified COPD CHF (congestive heart failure) I50.9 Heart failure type: unspecified Heart failure chronicity: chronic
[2022-01-27 13:25] VITALS: PULSE 68; RESP 16; O2SAT 96
[2022-02-02 14:19] LABS: Miscellaneous Test See Scanned Lab Rpt
== END 2022-01-27 13:27 | disposition home health service (06) | DRG 987 ==
LOC: ER 15:13 → MEDSURG 18:53
PROVIDERS: Radiology Neuroradiology; Admitting Provider Family Medicine; Emergency Provider Emergency Medicine; PCP Nurse Practitioner Family; Visit Provider Family Medicine
PROC: 0W9F3ZX Drainage of Abdominal Wall, Percutaneous Approach, Diagnostic (ICD-10-PCS; principal; 2022-01-21 12:00)
DX: I50.33 Acute on chronic diastolic (congestive) heart failure (principal); J96.20 Acute and chronic respiratory failure, unspecified whether with hypoxia or hypercapnia; J44.1 Chronic obstructive pulmonary disease with (acute) exacerbation; Z68.43 Body mass index [BMI] 50.0-59.9, adult; N39.0 Urinary tract infection, site not specified; E66.01 Morbid (severe) obesity due to excess calories; Z74.01 Bed confinement status; Z85.038 Personal history of other malignant neoplasm of large intestine; Z85.42 Personal history of malignant neoplasm of other parts of uterus; Z95.828 Presence of other vascular implants and grafts; Z90.49 Acquired absence of other specified parts of digestive tract; F17.210 Nicotine dependence, cigarettes, uncomplicated; K46.9 Unspecified abdominal hernia without obstruction or gangrene; L89.150 Pressure ulcer of sacral region, unstageable; R15.9 Full incontinence of feces; R32 Unspecified urinary incontinence; R19.09 Other intra-abdominal and pelvic swelling, mass and lump; R59.0 Localized enlarged lymph nodes; B96.1 Klebsiella pneumoniae [K. pneumoniae] as the cause of diseases classified elsewhere; F10.21 Alcohol dependence, in remission; F41.8 Other specified anxiety disorders; Z92.21 Personal history of antineoplastic chemotherapy
CPT/HCPCS: 20206; 36415; 51702; 71275; 74177; 76942; 80048; 80053; 80061; 81001; 82378; 83036; 83605; 83690; 83735; 83880; 84100; 84145; 84443; 85025; 85610; 86140; 86304; 86403; 87040; 87070; 87077; 87086; 87186; 87205; 87449; 88309; 88342; 94640; 94664; 96365; 96372; 96374; 96375; 97110; 97116; 97162; 97167; 97530; 97535; 99285; C9113; J0696; J1650; J1940; J2250; J2270; J2543; J2920; J2930; J3010; J3480; J7030; J7512; J7626; Q9967

== ENCOUNTER 2022-06-01 19:43 | Inpatient (IN) | payer MEDICARE, SELFPAY ==
[2022-06-01 20:12] VITALS: BMI 41.3
--- NOTE | 2022-06-01 20:41 | XRR_ITS ---
PROCEDURE INFORMATION: Exam: XR Chest Exam date and time: 06/01/2022 10:45 PM Age: 66 years old Clinical indication: Patient HX: General weakness. Hypotensive and hypoxic on monitor. TECHNIQUE: Imaging protocol: Radiologic exam of the chest. Views: 1 view. COMPARISON: No relevant prior studies available. FINDINGS: Tubes, catheters and devices: Right-sided Port-A-Cath. Lungs: Unremarkable. No consolidation. Pleural spaces: Unremarkable. No pleural effusion. No pneumothorax. Heart/Mediastinum: Unremarkable. No cardiomegaly. Bones/joints: Unremarkable. XR/XR chest 1V portable [id number] IMPRESSION: Negative for infiltrate
--- NOTE | 2022-06-01 20:42 | ECG_ITS ---
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 Measurements Intervals Muir Rate: 134 P: GA: QRS: 52 QRSD: 117 T: 90 QT: 312 QTc: 466 Interpretive Statements ATRIAL FIBRILLATION WITH RAPID VENTRICULAR RESPONSE LOW QRS VOLTAGE IN EXTREMITY LEADS [QRS DEFLECTION < 0.5 mV IN LIMB LEADS] MODERATE INTRAVENTRICULAR CONDUCTION DELAY [110+ ms QRS DURATION] MINIMAL ST DEPRESSION [0.025+ mV ST DEPRESSION] ABNORMAL RHYTHM ECG No previous ECG available for comparison Electronically Signed On 06-02-2022 20:49:02 CDT by Be Sawant M.D. [id number]
--- NOTE | 2022-06-01 20:47 | XRR_ITS ---
PROCEDURE INFORMATION: Exam: XR Right Elbow Exam date and time: 06/01/2022 10:51 PM Age: 66 years old Clinical indication: Right; Patient HX: C/O RT elbow pain. Swelling and redness to elbow. ; Additional info: Injury TECHNIQUE: Imaging protocol: Radiologic exam of the Right elbow. Views: 3 or more views. COMPARISON: No relevant prior studies available. FINDINGS: Bones/joints: Normal. Soft tissues: Normal. XR/XR elbow RT min 3V* [id number] IMPRESSION: No acute findings.
--- NOTE | 2022-06-01 20:48 | CTR_ITS ---
PROCEDURE INFORMATION: Exam: CT Head Without Contrast Exam date and time: 06/01/2022 10:59 PM Age: 66 years old Clinical indication: Other: General weakness. ; Additional info: Fall TECHNIQUE: Imaging protocol: Computed tomography of the head without contrast. Radiation optimization: All CT scans at this facility use at least one of these dose optimization techniques: automated exposure control; mA and/or kV adjustment per patient size (includes targeted exams where dose is matched to clinical indication); or iterative reconstruction. COMPARISON: No relevant prior studies available. RADIATION DOSE METRICS: Total DLP (mGy-cm): 1193.28 FINDINGS: Brain: Normal. No hemorrhage. Unremarkable white matter. No mass effect. Cerebral ventricles: No ventriculomegaly. Paranasal sinuses: Visualized sinuses are unremarkable. No fluid levels. Mastoid air cells: Visualized mastoid air cells are well aerated. Bones/joints: Unremarkable. No acute fracture. Soft tissues: Unremarkable. CT/CT head wo con* [id number] IMPRESSION: No acute intracranial abnormality.
--- NOTE | 2022-06-01 20:59 | PC.NURSE ---
pt refuses to let nurses and Dr assess skin and take vitals. Pt states she wants to leave. pt then states yall do whatever the hell you want
--- NOTE | 2022-06-01 21:00 | PC.NURSE ---
patient has became very irritable with the staff stating she is leaving. Nursing staff as well as Dr Anaya attempted to talk with the patient and explained the need for her to stay and allow us to take care of her. She continues to yell at staff and refuses care.
[2022-06-01 21:04] VITALS: BP 110/66; RESP 18; TEMP 37.1
[2022-06-01 21:06] VITALS: PULSE 104; O2SAT 94
--- NOTE | 2022-06-01 21:06 | ED_ITS ---
HPI - General Adult General: Chief complaint: General Medical Stated complaint: Failure to thrive Time Seen by Provider: 06/01/22 20:40 Source: patient and EMS Mode of arrival: EMS Limitations: no limitations History of Present Illness: 66-year-old female who is here from home with failure to thrive. EMS states when they arrived at patient's home she was in bed she is bedbound has had a history of the stroke and she states she is unable to ambulate she has not been caring for self. Patient per EMS home did not have any running water and she was covered in urine and feces laying in her bed. Patient is covered in feces here is multiple areas of skin breakdown has a Alvarez in place that has dried feces all over the Alvarez with a purulent drainage around the Alvarez. Patient has no fever she states that she called EMS because she cannot take care of her self. Patient here is been extremely angry and difficult to talk to she is refusing to let us fully evaluate or turn her Associated symptoms: Deny chest pain, dyspnea, nausea, rash or vomiting Review of Systems Const: Denies: fever(s), chills, body aches or change in appetite Eyes: Denies: blurry vision or eye discomfort ENMT: Denies: throat pain or dental pain Card: Denies: chest pain Resp: Denies: dyspnea GI: Denies: abdominal pain, nausea, vomiting or diarrhea : Denies: dysuria Musc: Denies: neck pain or back pain Skin/Breast: Denies: rash Neuro: Reports: weakness in extremities Psych: Denies: depression Rc/Lymph: Denies: easy bruising All/Imm: Denies: urticaria PFSH ED PFSH: Medical History (Updated 06/01/22 @ 21:06 by Tyree Anaya MD) Colon cancer Social History (Updated 06/01/22 @ 21:07 by Tyree Anaya MD) Substance/Drug Use: unknown Physical Exam Const: COMMON NORMALS: patient oriented x3 OTHER: Extremely disheveled patient is covered in urine and feces HENMT: COMMON NORMALS: normocephalic and atraumatic HEAD & SCALP: normocep halic and atraumatic Eye: COMMON NORMALS: Equal, round and reactive pupils present and EOMs intact bilaterally PUPIL: Yes Equal, round and reactive pupils present Neck/C-Spine: COMMON NORMALS: full ROM and supple Chest: COMMONS NORMALS: normal inspection of the chest and normal palpation of entire chest wall Resp: COMMON NORMALS: normal respiratory effort, No retractions, No use of accessory muscles and clear to auscultation bilaterally AUSCULTATION: clear to auscultation bilaterally Cardio: COMMON NORMALS: No murmurs present (Cardio) RATE: tachycardic RHYTHM: abnormal rhythm irregularly irregular GI: COMMON NORMALS: Normal to inspection, nondistended, normoactive bowel sounds present, Soft to palpation, non-tender and no masses PALPATION: Yes Soft to palpation : OTHER: Alvarez in place with purulent discharge coming from the Alvarez the Avlarez is extremely dirty with feces caked all over the Alvarez Extremity: NARRATIVE EXTREMITY EXAM: Tenderness over right elbow Neuro: COMMON NORMALS: patient oriented x3, moves all extremities and no focal motor deficits Psych: COMMON NORMALS: mental status grossly normal, Normal thought process present and cooperative THOUGHT PROCESS: Normal thought process present Skin: NARRATIVE SKIN EXAM: Skin breakdown to the coccyx Course Vital Signs: Vital signs: Vital Signs Temperature 98.8 F 06/01/22 21:04 Pulse Rate 112 H 06/01/22 23:55 Respiratory Rate 10 L 06/01/22 23:55 Blood Pressure 114/73 06/01/22 23:55 Pulse Oximetry 95 06/01/22 23:55 [facility] - General Adult Medical Decision Making Patient presents here with failure to thrive along with A. fib with RVR and a acute cystitis. Patient also has a decubitus ulcer. Patient initially was argumentative and not cooperative but she is now allowed us to start an IV and get blood drawn and does have a urinary tract infection. Patient also has been in A. fib with RVR I started her on an amiodarone drip as her blood pressures been on the lower side. I spoke to the hospitalist started IV antibiotics and will admit to the ICU at this time. Lab Data : 06/01/22 23:44 06/01/22 23:44 Radiology Impressions Chest X-Ray 06/01/22 20:41 IMPRESSION: Negative for infiltrate Elbow X-Ray 06/01/22 20:47 IMPRESSION: No acute findings. Head CT 06/01/22 20:48 IMPRESSION: No acute intracranial abnormality. Laboratory Results WBC 13.4 10^3/uL (4.0-10.0) H 06/01/22 23:44 RBC 4.62 10^6/uL (4.1-5.3) 06/01/22 23:44 Hgb 13.2 g/dL (11.5-15.3) 06/01/22 23:44 Hct 42.3 % (37.0-47.0) 06/01/22 23:44 MCV 91.6 fl (81-99) 06/01/22 23:44 MCH 28.6 pg (28.0-34.0) 06/01/22 23:44 MCHC 31.2 g/dL (30.0-36.0) 06/01/22 23:44 RDW 17.2 % (12.1-15.1) H 06/01/22 23:44 Plt Count 370 10^3/cmm (130-400) 06/01/22 23:44 MPV 9.7 fL (7.4-10.4) 06/01/22 23:44 Neut % (Auto) 83.1 % 06/01/22 23:44 Lymph % (Auto) 10.1 % 06/01/22 23:44 [place] % (Auto) 5.7 % 06/01/22 23:44 Eos % (Auto) 0.3 % 06/01/22 23:44 Baso % (Auto) 0.4 % 06/01/22 23:44 Neut # (Auto) 11.12 10^3/uL (1.8-7.7) H 06/01/22 23:44 Lymph # (Auto) 1.4 10^3/uL (0.8-4.8) 06/01/22 23:44 [place] # (Auto) 0.8 10^3/uL (0.2-0.9) 06/01/22 23:44 Eos # (Auto) 0.0 10^3/uL (0.0-0.8) 06/01/22 23:44 Baso # (Auto) 0.1 10^3/uL (0.0-0.1) 06/01/22 23:44 Nucleated RBC % (auto) 0 % 06/01/22:44 Nucleated RBCs # 0.0 /100WBC 06/01/22 23:44 PT 13.00 SECONDS (12.1-14.9) 06/01/22 23:44 INR 0.95 (0.8-1.2) 06/01/22 23:44 Sodium 134 mmol/L (136-145) L 06/01/22 23:44 Potassium 3.3 mmol/L (3.5-5.1) L 06/01/22 23:44 Chloride 92 mmol/L (98-107) L 06/01/22 23:44 Carbon Dioxide 32 mmol/L (22-29) H 06/01/22 23:44 Anion Gap 13.3 (5-19) 06/01/22 23:44 BUN 9 mg/dL (8-23) 06/01/22 23:44 Creatinine 0.4 mg/dL (0.5-0.9) L 06/01/22 23:44 GFR Calculation 160.7 mL/min (90-130) H 06/01/22 23:44 Glucose 117 mg/dL (65-115) H 06/01/22 23:44 Calculated Osmolality 278 mOsm/kg (285-295) L 06/01/22 23:44 Lactate 1.5 mmol/L (0.5-2.2) 06/01/22 23:44 Calcium 8.9 mg/dL (8.5-10.5) 06/01/22 23:44 Magnesium 2.0 mg/dL (1.7-2.3) 06/01/22 23:44 Total Bilirubin 0.5 mg/dL (0.15-1.2) 06/01/22 23:44 AST 12 U/L (0-32) 06/01/22 23:44 ALT 7 U/L (0-33) 06/01/22 23:44 Alkaline Phosphatase 97 IU/L (35-105) 06/01/22 23:44 Creatine Kinase 22 U/L (26-192) L 06/01/22 23:44 Troponin T Baseline 69 ng/L (0-10) H 06/01/22 23:44 Total Protein 5.9 g/dL (6.6-8.7) L 06/01/22 23:44 Albumin 2.8 g/dL (3.5-5.2) L 06/01/22 23:44 Globulin 3.1 g/dL (1.3-4.6) 06/01/22 23:44 Urine Color Yellow (Yellow) 06/01/22 23:35 Urine Appearance Cloudy (CLEAR) 06/01/22 23:35 Urine pH 5 (5-7) 06/01/22 23:35 Ur Specific [place] 1.025 (1.005-1.030) 06/01/22 23:35 Urine Protein 2+ (Negative) H 06/01/22 23:35 Urine Glucose (UA) Norm (Normal) 06/01/22 23:35 Urine Ketones Negative (Negative) 06/01/22 23:35 Urine Blood 3+ (Negative) H 06/01/22 23:35 Urine Nitrate Negative (Negative) 06/01/22 23:35 Urine Bilirubin 1+ (Negative) H 06/01/22 23:35 Urine Urobilinogen 4 mg/dL (Negative) H 06/01/22 23:35 Ur Leukocyte Esterase 2+ (Negative) H 06/01/22 23:35 Urine RBC 5-10 /hpf (0-2) H 06/01/22 23:35 Urine WBC Too numerous to cnt /hpf (0-5) H 06/01/22 23:35 Ur Squamous Epith Cells 25-40 /hpf (0-5) H 06/01/22 23:35 Calcium Oxalate Crystal 0-4 /hpf H 06/01/22 23:35 Amorphous Sediment Not Reportable 06/01/22 23:35 Urine Bacteria 4+ /hpf (NONE) H 06/01/22 23:35 EKG Data EKG 1: I personally reviewed and interpreted this EKG as follows: EKG interpretation date: 06/01/22 EKG interpretation time: 21:52 Interpretation: afib with rvr hr [address] or t wave abnormalities qrs 117 qtc 391 Computer generated interpretation: Chest X-Ray 06/01/22 20:41 IMPRESSION: Negative for infiltrate Elbow X-Ray 06/01/22 20:47 IMPRESSION: No acute findings. Head CT 06/01/22 20:48 IMPRESSION: No acute intracranial abnormality. EKG 2: I personally reviewed and interpreted this EKG as follows: EKG interpretation date: 06/01/22 EKG interpretation time: 23:52 Interpretation: afiv with rvr hr [address] or t wave abnormalities qrs 120 qtc 403 Computer generated interpretation: Chest X-Ray 06/01/22 20:41 IMPRESSION: Negative for infiltrate Elbow X-Ray 06/01/22 20:47 IMPRESSION: No acute findings. Head CT 06/01/22 20:48 IMPRESSION: No acute intracranial abnormality. Discharge Plan Discharge Prescriptions: No Action furosemide 40 mg Tablet 40 mg PO DAILY 0RF trazodone 50 mg Tablet 50 mg PO DAILY 0RF oxybutynin chloride 10 mg Tablet Extended Release 24 Hr 10 mg PO DAILY 0RF topiramate 25 mg Tablet 25 mg PO BID 0RF citalopram 20 mg Tablet 20 mg PO DAILY 0RF metoprolol tartrate 25 mg Tablet 25 mg PO DAILY 0RF Spiriva with HandiHaler 18 mcg Capsule, W/Inhalation Device 1 cap INHALATION DAILY 0RF Rx Instructions: puncture 1 cap using device; one dose = 2 inhalations Symbicort 160-4.5 mcg/actuation Hfa Aerosol Inhaler 2 puff INHALATION BID 0RF Coding Level of Care Code ED Feed Crusher for Chg Fwd Exam Comprehensive
--- NOTE | 2022-06-01 21:30 | PC.PHAR ---
PT UNABLE TO VERIFY - MEDICATIONS VERIFIED USING EXTERNAL MED LIST. PT'S PHARMACY IS CLOSED
--- NOTE | 2022-06-01 21:40 | PC.NURSE ---
port in right chest was accessed using sterile technique. 19ga 1inch grant needle was used.
[2022-06-01 22:07] VITALS: RESP 18
[2022-06-01] MEDS: ondansetron 2 mg/ML SDV 2 mL 4 MG IVP (22:07)
[2022-06-01] MEDS: morphine 4 mg/mL SDV 1 mL IVP (22:07)
[2022-06-01] MEDS: sodium chloride 0.9% 500 ML IV (22:08)
[2022-06-01] MEDS: cefTRIAXone 1,000 MG in sodium chloride 0.9% (plus) 50 ML 100 MG IV (22:08)
--- NOTE | 2022-06-01 22:42 | ECG_ITS ---
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 Measurements Intervals [place] Rate: 118 P: [place]: QRS: 51 QRSD: 120 T: 92 QT: 333 QTc: 468 Interpretive Statements ATRIAL FIBRILLATION WITH RAPID VENTRICULAR RESPONSE WITH ABERRANT CONDUCTION OR VENTRICULAR PREMATURE COMPLEXES MODERATE INTRAVENTRICULAR CONDUCTION DELAY [110+ ms QRS DURATION] MODERATE ST DEPRESSION [0.05+ mV ST DEPRESSION] Compared to ECG 06/01/2022 21:52:03 Ventricular premature complex(es) now present Aberrant conduction of supraventricular beat(s) now present ST (T wave) deviation still present Electronically Signed On 06-02-2022 21:00:21 CDT by Be Sawant M.D. [id number]
[2022-06-01] MEDS: sodium chloride 0.9% 1,000 ML 999 ML IV (23:20)
[2022-06-01 23:52] LABS: Basophils # 0.1 10^3/uL (0.0-0.1); Basophils % 0.4 %; Eosinophils % 0.3 %; Hematocrit 42.3 % (37.0-47.0); Hemoglobin 13.2 g/dL (11.5-15.3); Lymphocytes # 1.4 10^3/uL (0.8-4.8); Lymphocytes % 10.1 %; Mean Corpuscular HGB Conc 31.2 g/dL (30.0-36.0); Mean Corpuscular Hemoglobin 28.6 pg (28.0-34.0); Mean Corpuscular Volume 91.6 fl (81-99); Mean Platelet Volume 9.7 fL (7.4-10.4); Monocytes # 0.8 10^3/uL (0.2-0.9); Monocytes % 5.7 %; Neutrophils # 11.12 10^3/uL (1.8-7.7); Neutrophils % 83.1 %; Nucleated Red Blood Cells % 0 %; Platelet Count 370 10^3/cmm (130-400); Red Blood Count 4.62 10^6/uL (4.1-5.3); Red Cell Distribution Width 17.2 % (12.1-15.1); White Blood Count 13.4 10^3/uL (4.0-10.0)
[2022-06-01 23:52] LABS: Urine Color Yellow (Yellow)
[2022-06-01 23:53] LABS: Add Urine Culture? No; Add Urine Microscopic? YES; Bacteria Urine 4+ /hpf; Bilirubin Urine 1+ (Negative); Blood Urine 3+ (Negative); Calcium Oxalate Crystals Urine 0-4 /hpf; Glucose Urine UA Norm (Normal); Ketones Urine Negative (Negative); Leukocyte Esterase Urine 2+ (Negative); Nitrate Urine Negative (Negative); Protein Urine 2+ (Negative); Specific Gravity, Urine 1.025 (1.005-1.030); Squamous Epithelial Cell Urine 25-40 /hpf (0-5); Urine Appearance Cloudy (CLEAR); Urobilinogen Urine 4 mg/dL (Negative); WBC Urine TOO NUMEROUS TO CNT /hpf (0-5); pH Urine 5 (5-7)
[2022-06-01 23:55] VITALS: BP 114/73; PULSE 112; RESP 10; O2SAT 95
[2022-06-02] VITALS (55 sets, daily range): BP systolic 82–131; BP diastolic 51–88; PULSE 75–135; RESP 0–22; TEMP 36.3–36.7; O2SAT 87–100
[2022-06-02 00:05] LABS: INR 0.95 (0.8-1.2)
[2022-06-02 00:08] LABS: Lactate (Lactic Acid level) 1.5 mmol/L (0.5-2.2)
[2022-06-02 00:18] LABS: Alanine Aminotransferase 7 U/L (0-33); Albumin Level 2.8 g/dL (3.5-5.2); Alkaline Phosphatase 97 IU/L (35-105); Anion Gap 13.3 (5-19); Aspartate Amino Transferase 12 U/L (0-32); Blood Urea Nitrogen 9 mg/dL (8-23); Calcium 8.9 mg/dL (8.5-10.5); Carbon Dioxide 32 mmol/L (22-29); Chloride 92 mmol/L (98-107); Creatine Phosphokinase 22 U/L (26-192); Globulin 3.1 g/dL (1.3-4.6); Glomerular Filtration Rate 160.7 mL/min (90-130); Glucose 117 mg/dL (65-115); Osmolality Calculated 278 mOsm/kg (285-295); Potassium 3.3 mmol/L (3.5-5.1); Sodium 134 mmol/L (136-145); Total Bilirubin 0.5 mg/dL (0.15-1.2); Total Protein 5.9 g/dL (6.6-8.7); Troponin(5th) Baseline 69 ng/L (0-10)
--- NOTE | 2022-06-02 01:20 | P.HP_ITS ---
Providers/Chief Complaint Admitting Physician: Tapan Concepcion Chief Complaint: Failure to thrive History of Present Illness Pleasant 66-year-old lady with history of colon cancer, partial colectomy, came into ER due to being unable to take care of herself at home, noted to be disheveled, covered in feces, with Alvarez catheter in place with purulent Alvarez drainage and covered in feces as well. In ER found to be in A. fib with RVR, heart rates up to 100-teens, soft blood pressure due to which was started on amio drip. With noted decubital ulcer, although only partially examined, as she initially was not cooperating very well with exam. Right upper extremity noted with swelling, mild erythema, although she is not sure how long it has been like that. States seems like forever . She is not sure when the Alvarez catheter had been put in originally. She does not have a primary provider. She is to follow with oncology for colon cancer which she says was in remission previously. She states that she has functionally declined, and recently has been weak to the point of having difficulty getting up and ambulating. She states she did not used to be like that, and used to go on walks with her friends who live with her. Review of Systems Const: Reports: other (Deconditioned, weak, functional decline.); Denies: fever(s), chills, body aches or malaise Eyes: Denies: change in vision, eye discomfort or eye redness ENMT: Denies: throat pain, oral sores or ear or mastoid pain Card: Denies: chest pain, edema, pre-syncope or dyspnea on exertion Resp: Denies: dyspnea, productive cough, change in phlegm color or hemoptysis GI: Denies: abdominal pain, nausea, vomiting, diarrhea, constipation, hematochezia or melena : Denies: flank pain, urinary frequency or hematuria Musc: Denies: back pain, joint swelling or joint redness Skin/Breast: Reports: new lesions (decub) Neuro: Denies: headache(s), numbness in extremities, weakness in extremities, dizziness, confusion or seizure-like activity Endo: Denies: polyuria or polydipsia Rc/Lymph: Denies: easy bleeding or tender lymph nodes All/Imm: Denies: urticaria or tongue swelling Medications/Allergies Home Medications Medication Instructions Recorded Confirmed Last Taken Type budesonide-formoterol HFA 160 2 puff INHALATION BID 06/01/22 06/01/22 Unknown History mcg-4.5 mcg/actuation aerosol inhaler (Symbicort) citalopram 20 mg tablet 20 mg PO DAILY 06/01/22 06/01/22 Unknown History furosemide 40 mg tablet 40 mg PO DAILY 06/01/22 06/01/22 Unknown History metoprolol tartrate 25 mg tablet 25 mg PO DAILY 06/01/22 06/01/22 Unknown History oxybutynin chloride 10 mg 10 mg PO DAILY 06/01/22 06/01/22 Unknown History tablet,extended release 24 hr tiotropium bromide 18 mcg capsule 1 cap INHALATION DAILY 06/01/22 06/01/22 Unknown History with inhalation device (Spiriva with HandiHaler) topiramate 25 mg tablet 25 mg PO BID 06/01/22 06/01/22 Unknown History trazodone 50 mg tablet 50 mg PO DAILY 06/01/22 06/01/22 Unknown History Allergies Allergy/AdvReac Type Severity Reaction Status Date / Time iodine Allergy Unknown Unknown Verified 06/01/22 21:25 propoxyphene Allergy Unknown Unknown Verified 06/01/22 21:25 seafood Allergy Unknown Unknown Uncoded 06/01/22 21:25 shellfish Allergy Unknown Unknown Uncoded 06/01/22 21:25 PFSH Acute PFSH: Medical History (Updated 06/02/22 @ 01:42 by Tapan Concepcion MD) Colon cancer COPD (chronic obstructive pulmonary disease) CVA (cerebral vascular accident) SARAH BETH (obstructive sleep apnea) Port-A-Cath in place Smoking addiction Unable to ambulate Surgical History History of partial colectomy Social History Smoking and tobacco status: current every day smoker Alcohol intake: never Substance/Drug Use: never Lives independently: No Household members: friend(s) Housing: Other Vitals/I&O/Wt Last Vital Signs Temp 98.8 F 06/01/22 21:04 Pulse 113 H 06/02/22 01:00 Resp 15 06/02/22 01:00 BP 116/79 06/02/22 01:00 Pulse Ox 97 06/02/22 01:00 06/01/22 06/01/22 06/02/22 14:59 22:59 06:59 Intake Total 50 / 50 500 / 550 Balance 50 / 50 500 / 550 Weight last 48 hrs Weight 127.006 kg Physical Exam Const: COMMON NORMALS: alert GENERAL APPEARANCE: cooperative and disheveled NUTRITIONAL APPEARANCE: obese morbidly obese ORIENTATION/CONSCIOUSNESS: Yes awake HENMT: COMMON NORMALS: normocephalic, EAC's normal, Normal external nose present and moist oral mucous membranes HEAD & SCALP: normocephalic NOSE: Normal external nose present EXTERNAL AUDITORY CANAL: EAC's normal Neck/C-Spine: COMMON NORMALS: no meningeal signs Chest: CHEST: Yes Symmetrical chest wall rise OTHER: Right chest Port-A-Cath Resp: COMMON NORMALS: clear to auscultation bilaterally AUSCULTATION: clear to auscultation bilaterally Cardio: COMMON NORMALS: regular rate, regular rhythm and No murmurs present (Cardio) RATE: regular rate RHYTHM: regular rhythm GI: COMMON NORMALS: Normal to inspection, nondistended, normoactive bowel so unds present, Soft to palpation and non-tender PALPATION: Yes Soft to pal pation and Yes Palpable mass present (Palpable mass inferior abdomen to the left of midline) : OTHER: Alvarez catheter with purulent urine Extremity: GENERAL: Yes edema (1+) OTHER: Swelling, mild erythema of right upper extremity Neuro: COMMON NORMALS: moves all extremities SENSORIUM/ORIENTATION: Yes alert MENINGEAL SIGNS: Yes no meningeal signs Psych: COMMON NORMALS: mental status grossly normal Skin: COMMON NORMALS: no wounds GENERAL SKIN EXAM: other (Dirt on skin and under fingernails) RASHES: no rashes OTHER: Decub ulcer reported partially examined previously Data : 06/01/22 23:44 06/01/22 23:44 Micro: Microbiology 06/02/22 00:05 Blood Culture - Preliminary Blood SPECIMEN COLLECTED A&P Assessment and plan (1) Paroxysmal atrial fibrillation with RVR: A. fib with RVR, with Blood pressure soft on presentation, would not tolerate calcium channel humberto or beta-humberto.Started on amiodarone drip. Continue. Discussed with her anticoagulation for stroke risk prevention as well, to which she is agreeable. Denies any bleeding. Start with Lovenox for now. Monitor blood counts. Check TSH. Replace potassium. Magnesium is okay. Status: Acute (2) UTI (urinary tract infection): She is not sure why she has a Alvarez catheter or how long ago it was placed. Alvarez catheter to be changed. Follow-up urine culture. Continue Rocephin. With leukocytosis, tachycardia, assess CT abdomen pelvis for any sign of pyelonephritis. Status: Acute (3) Declining functional status: Reports has been getting weaker to the point she cannot ambulate. She is very disheveled with reported poor living conditions, also covered with feces, on her legs, as well as Alvarez catheter. She is not sure how long the Alvarez catheter h as been in but appears old with very purulent urine, reported to be covered with feces. Now also with decubitus ulcer. She is now doing well at home. We will request PT, OT evaluation, case management consultation. Treat UTI. Check TSH. Status: Acute (4) Unable to ambulate: As above Status: Acute (5) Physical deconditioning: As above Status: Acute (6) Abdominal mass: With history of colon cancer with partial colectomy, palpable mass in lower abdomen to the left of midline. Assessed plain CT abdomen pelvis. In case of recurrence of colon cancer she states would not pursue additional treatment, would consider hospice care. Status: Acute (7) Port-A-Cath in place: She asks about removal of the Port-A-Cath. Perhaps this could be considered after acute conditions are taken care of. Status: Acute (8) Smoking addiction: Encourage cessation. Nicotine replacement. Status: Acute Plan COPD, not in exacerbation. Reports uses oxygen as needed. SARAH BETH, intolerant of CPAP Morbid obesity History of colon cancer Attestations Medical Necessity Statement*: Admission of over 2 midnights is anticipated for assessment of management of A. fib with RVR with low blood pressure, possible complicated urinary tract infection, functional decline and inability to care for self at home. Coding Level of Care Code Acute Admission Liaison for Jie Umana Diagnoses UTI (urinary tract infection) N39.0 Declining functional status R53.81 Unable to ambulate R26.2 Abdominal mass R19.00 Physical deconditioning R53.81 Port-A-Cath in place Z95.828 Paroxysmal atrial fibrillation with RVR I48.0 Smoking addiction F17.200
[2022-06-02 02:09] LABS: Troponin 5 2HR 65.37 ng/L (0-10); Troponin 5 2HR Delta -3.63 ABS# (0-10)
[2022-06-02] MEDS: morphine 4 mg/mL SDV 1 mL IVP (02:15)
--- NOTE | 2022-06-02 02:42 | ECG_ITS ---
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 Measurements Intervals [place] Rate: P: [place]: QRS: QRSD: T: QT: QTc: Interpretive Statements Atrial fibrillation with a diffuse nonspecific T wave changes ATYPICAL ECG WARNING: DATA QUALITY MAY AFFECT INTERPRETATION Compared to ECG 06/01/2022 23:52:07Ventricular premature complex(es) no longer present Aberrant conduction of supraventricular beat(s) no longer present Intraventricular conduction delay no longer present ST (T wave) deviation no longer present Electronically Signed On 06-02-2022 21:02:02 CDT by Be Sawant M.D. [id number]
--- NOTE | 2022-06-02 04:24 | USCV_ITS ---
Shavonne Mayberry Age: 66 Gender: F : 1955 Exam Date: 06/02/2022 07:24 Ordering Phys: Tapan Concepcion MD Technologist: Ethan Bailey Exam Location: [facility] [place]_ Indication: lt arm edema PROCEDURES: Venous duplex imaging was performed in only the left upper extremity. The following venous structures were evaluated: internal jugular vein, subclavian vein, axillary vein, and brachial veins. In addition, the basilic vein, cephalic vein, radial vein, and ulnar vein. FINDINGS: The veins of the left upper extremity are readily compressible with normal venous flow dynamics including spontaneous flow, respiratory phasic variation and augmentation. No evidence of deep vein thrombosis or superficial thrombophlebitis in the left upper extremity. CONCLUSIONS No evidence of thrombus of the left upper extremity veins. Adam Nichols MD (Electronically Signed) Final Date: 02 June 2022 14:17 S
[2022-06-02] MEDS: enoxaparin 150 mg/mL Syringe 130 MG SUBCUT ×2 (04:51→15:22)
[2022-06-02] MEDS: potassium chloride ER 20 mEq Tablet 40 MEQ PO (04:51)
--- NOTE | 2022-06-02 06:19 | PC.NURSE ---
Patient arrived from ED per stretcher transferred to bed using hover mat at 0415. Patient incontinent of stool and hygiene with CHG wipes and attaching to ICU monitors at 0415. Patient refused nursing care 0435 stating that staff was being rough and she is pissed off. All staff x4 assisting patient provided care in a cautious and gentle manner explaining care before performing. Dr Eckert came to bedside at 0440 to talk with patient. Patient allowed staff to continue with CHG bath and resuming/performing care at 0500. Patient continue with demanding and impulsive tone and demeanor.
[2022-06-02 07:16] LABS: Troponin 5 6HR 62.03 ng/L (0-10)
[2022-06-02 07:18] LABS: Troponin 5 6HR Delta -6.97 ng/L (0-12)
--- NOTE | 2022-06-02 08:25 | USCV_ITS ---
Shavonne Mayberry Age: 66 Gender: F : 1955 Exam Date: 06/02/2022 10:07 Ordering Phys: Ajay Deal MD Technologist: GARLAND Exam Location: [facility] [place] Indication: NEW ONSET AFIB BP: 82 / 65 HR: 121 Rhythm: Atrial fibrillation Technical Quality: Poor because of body habitus MEASUREMENTS (Male / Female) Normal Values 2D ECHO LV Ejection Fraction MOD 2C 37.6 % LV Ejection Fraction 2C AL 34.7 % LA Width 2.3 cm LA Height 4.6 cm RA Width 3.5 cm RA Height 4.6 cm DOPPLER AV Peak Velocity 126.0 cm/s LVOT Peak Velocity 80.0 cm/s MV Peak Velocity 84.0 cm/s MV Area PHT 4.2 cm squared MV E' Velocity 44.0 cm/s Mitral E to MV E' Ratio 5.3 Mitral E to LV E' Lateral Ratio 4.7 Mitral E to LV E' Septal Ratio 6.0 TR Peak Velocity 222.8 cm/s TR Peak Gradient 19.9 mmHg TR Mean Velocity 155.5 cm/s TR Mean Gradient 11.3 mmHg TR Velocity Time Integral 49.9 cm TV Peak E Velocity 57.0 cm/s FINDINGS Left Ventricle Technically limited quality echocardiogram because of poor ultrasonic windows. Grossly LV systolic function is moderately reduced. Diastolic function is indeterminate because of atrial fibrillation Right Ventricle Not well-visualized Right Atrium The right atrium is normal in size. Left Atrium The left atrium is normal in size. Mitral Valve Grossly normal. Trace mitral regurgitation Aortic Valve Not well-visualized Tricuspid Valve Not well visualized Pulmonic Valve Not visualized Pericardium Normal pericardium without effusion. Aorta Normal ascending aorta dimension. IVC CONCLUSIONS Technically limited quality echocardiogram because of poor ultrasonic windows. Grossly LV systolic function is moderately reduced. Diastolic function is indeterminate because of atrial fibrillation. Trace mitral regurgitation. Valvular structures not well-visualized. No comparison studies are available Osmin Michelle MD (Electronically Signed) Final Date: 02 June 2022 17:50 S
[2022-06-02] MEDS: amiodarone 200 mg Tablet 400 MG PO ×3 (08:55→20:00)
[2022-06-02] MEDS: citalopram 20 mg Tablet PO (08:56)
[2022-06-02] MEDS: oxybutynin 5 mg Tablet 10 MG PO (08:57)
[2022-06-02] MEDS: nicotine 21 mg Patch 1 PATCH TRANSDERMA (08:57)
[2022-06-02] MEDS: topiramate 25 mg Tablet PO ×2 (08:57→17:50)
--- NOTE | 2022-06-02 10:17 | PC.NURSE ---
[address] Deal. Reviewed VS, labs, medications, diet, and plan of care. Ok for patient to eat, begin to bridge with PO Amio, plan for ECHO and CT today.
--- NOTE | 2022-06-02 10:33 | PC.CHAP ---
Pastoral Care Encounter/Spiritual Assessment Type of Contact [] Declined radiation therapist visit [] Patient/Family/Request visit [] Outpatient visit [] Follow-up visit [] Physician referral [] Code/Alert [x] Routine visit [] Staff referral [] Actively dying [] Patient sleeping [] Family support [] [] Out of room [] Palliative care [] [] Receiving care in room [] Pre-surgical visit [] Trauma [] Long length of stay [x] ICU visit [x] Other: patient eating breakfast... Relational/Emotional Strength [] Patient feels connected with others/family/visitors/staff [] Distress [] Loneliness/isolation [] Abandonment Spirituality of Patient [] Person of Suma [] Attends Mosque of their Suma [] Believes in Prayer [] Reads Bible or Restorationism materials [] There are Spiritual issues to be addressed Manager Quality Interventions [x] Prayer [x] Active listening [x] Non-anxious presence [x] Spiritual/emotional support [] Crisis/trauma care [] Spiritual counseling [] Bereavement support [] Provided bereavement packet [] Provided Bible/devotional materials [] Provided toy/stuffed animal, coloring book to patient or family member [] Provided Communion [] Anointing/[place] [] Salvation [x] Completed spiritual assessment [] Other: Impact on Illness or Injury [] Angry [] Fearful [] Anxious [] Often cries [] Exhaustion [] Unable to work [] Unable to attend christianity [] Unable to walk/stand [] Unable to read [] Unable to drive [] Unable to eat/drink [] Unable to sleep [] Unable to be with family [] Patient intubated [] Other: Summary Time spent with patient
--- NOTE | 2022-06-02 10:42 | PC.NURSE ---
While preparing to transfer patient to CT scan she became aggressive and verbally abusive staff. She refused to go to CT. Dr. Deal notified.
--- NOTE | 2022-06-02 13:46 | PC.NURSE ---
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 One lead visible but unable to run accurate strip. Dr. Deal notified.
--- NOTE | 2022-06-02 13:52 | PC.NURSE ---
pt refuses anyone to fix her tele montioring
[2022-06-02] MEDS: cefTRIAXone 1,000 MG in sodium chloride 0.9% (plus) 50 ML 100 MG IV (20:00)
[2022-06-02] MEDS: trazodone 50 mg Tablet PO (20:00)
[2022-06-03] VITALS (41 sets, daily range): BP systolic 88–131; BP diastolic 53–94; PULSE 79–127; RESP 0–26; TEMP 36.6–36.9; O2SAT 87–99
[2022-06-03] MEDS: enoxaparin 150 mg/mL Syringe 130 MG SUBCUT ×2 (05:13→17:33)
[2022-06-03 08:21] LABS: Basophils # 0.1 10^3/uL (0.0-0.1); Basophils % 0.4 %; Eosinophils # 0.1 10^3/uL (0.0-0.8); Eosinophils % 0.9 %; Hematocrit 36.5 % (37.0-47.0); Hemoglobin 11.1 g/dL (11.5-15.3); Lymphocytes # 1.7 10^3/uL (0.8-4.8); Lymphocytes % 14.7 %; Mean Corpuscular HGB Conc 30.4 g/dL (30.0-36.0); Mean Corpuscular Hemoglobin 28.3 pg (28.0-34.0); Mean Corpuscular Volume 93.1 fl (81-99); Monocytes # 0.5 10^3/uL (0.2-0.9); Monocytes % 4.5 %; Neutrophils # 9.19 10^3/uL (1.8-7.7); Nucleated Red Blood Cells % 0 %; Platelet Count 344 10^3/cmm (130-400); Red Blood Count 3.92 10^6/uL (4.1-5.3); Red Cell Distribution Width 17.4 % (12.1-15.1); White Blood Count 11.6 10^3/uL (4.0-10.0)
[2022-06-03] MEDS: oxybutynin 5 mg Tablet 10 MG PO (08:25)
[2022-06-03] MEDS: citalopram 20 mg Tablet PO (08:25)
[2022-06-03] MEDS: amiodarone 200 mg Tablet 400 MG PO ×3 (08:25→20:11)
[2022-06-03] MEDS: topiramate 25 mg Tablet PO ×2 (08:25→20:07)
[2022-06-03] MEDS: nicotine 21 mg Patch 1 PATCH TRANSDERMA (08:26)
[2022-06-03 09:04] LABS: Alanine Aminotransferase 7 U/L (0-33); Albumin Level 2.3 g/dL (3.5-5.2); Alkaline Phosphatase 93 IU/L (35-105); Anion Gap 10.7 (5-19); Aspartate Amino Transferase 10 U/L (0-32); Blood Urea Nitrogen 7 mg/dL (8-23); Calcium 8.7 mg/dL (8.5-10.5); Carbon Dioxide 30 mmol/L (22-29); Chloride 95 mmol/L (98-107); Globulin 2.9 g/dL (1.3-4.6); Glomerular Filtration Rate 160.7 mL/min (90-130); Glucose 122 mg/dL (65-115); Osmolality Calculated 273 mOsm/kg (285-295); Potassium 3.7 mmol/L (3.5-5.1); Sodium 132 mmol/L (136-145); Thyroid Stimulating Hormone 1.23 uIU/mL (0.27-4.20); Total Bilirubin 0.2 mg/dL (0.15-1.2); Total Protein 5.2 g/dL (6.6-8.7)
--- NOTE | 2022-06-03 10:51 | PC.CHAP ---
Pastoral Care Encounter/Spiritual Assessment Type of Contact [] Declined butter melter visit [] Patient/Family/Request visit [] Outpatient visit [] Follow-up visit [] Physician referral [] Code/Alert [x] Routine visit [] Staff referral [] Actively dying [] Patient sleeping [] Family support [] [] Out of room [] Palliative care [] [] Receiving care in room [] Pre-surgical visit [] Trauma [] Long length of stay [x] ICU visit [] Other: Relational/Emotional Strength [] Patient feels connected with others/family/visitors/staff [] Distress [] Loneliness/isolation [] Abandonment Spirituality of Patient [] Person of Suma [] Attends Yazidism of their [place] [] Believes in Prayer [] Reads Bible or Anabaptist materials [] There are Spiritual issues to be addressed Leather Coater Interventions [x] Prayer [] Active listening [] Non-anxious presence [] Spiritual/emotional support [] Crisis/trauma care [] Spiritual counseling [] Bereavement support [] Provided bereavement packet [] Provided Bible/devotional materials [] Provided toy/stuffed animal, coloring book to patient or family member [] Provided Communion [] Anointing/[place] [] Salvation [x] Completed spiritual assessment [] Other: Impact on Illness or Injury [] Angry [] Fearful [] Anxious [] Often cries [] Exhaustion [] Unable to work [] Unable to attend pentecostal [] Unable to walk/stand [] Unable to read [] Unable to drive [] Unable to eat/drink [] Unable to sleep [] Unable to be with family [] Patient intubated [] Other: Summary Time spent with patient
--- NOTE | 2022-06-03 19:31 | PM.PN ---
Subjective Subjective: Patient was seen and examined this morning, last night amiodarone drip was stopped, patient heart rate has gone up back to 110s to 130s, amiodarone drip was restarted this morning, rate has been increased to 1, blood pressure is also slightly soft, will consider using digoxin, for now we will monitor, as the patient is relatively asymptomatic. 2D echo report appreciated. Medications: Medication Review Details: Generic Name Dose Route Start Last Admin Trade Name Augustina PRN Reason Stop Dose Admin Amiodarone HCl 400 mg 06/02/22 09:00 06/03/22 16:40 Amiodarone 200 M g Tablet PO 400 mg TID LYNN Administration Citalopram Hydrobr omide 20 mg 06/02/22 09:00 06/03/22 08:25 Citalopram 20 Mg Tablet PO 20 mg DAILY LYNN Administration Enoxaparin Sodium 130 mg 06/02/22 04:24 06/03/22 17:33 Enoxaparin 150 M g/Ml Syringe SUBCUT 130 mg Q12H LYNN Administration Amiodarone HCl 900 mg/ 518 mls @ 0 mls/h r 06/02/22 00:15 06/03/22 13:07 Dextrose/ IV Misce llaneous IV 0.5 mg/min Supplies .Q0M LYNN 17.27 mls/hr Administration Protocol Per Protocol Ceftriaxone Sodium 1,000 mg/ 50 mls @ 100 mls/ hr 06/02/22 20:00 06/02/22 20:30 Sodium Chloride IV Infused Q24H LYNN Infusion Protocol Nicotine 1 patch 06/02/22 09:00 06/03/22 08:26 Nicotine 21 Mg P atch TRANSDERMA 1 patch DAILY LYNN Administration Oxybutynin Chlorid e 10 mg 06/02/22 09:00 06/03/22 08:25 Oxybutynin 5 Mg Tablet PO 10 mg DAILY LYNN Administration Fluticasone/Salmet shankar 1 puff 06/02/22 09:00 06/03/22 10:00 Fluticasone-Salm eterol 250-50 Disk us INHALATION 1 puff BID LYNN Administration Topiramate 25 mg 06/02/22 09:00 06/03/22 08:25 Topiramate 25 Mg Tablet PO 25 mg BID LYNN Administration Trazodone HCl 50 mg 06/02/22 21:00 06/02/22 20:00 Trazodone 50 Mg Tablet PO 50 mg BEDTIME LYNN Administration Vitals/I&O/Wt Last Vital Signs Temp 98.4 F 06/03/22 15:05 Pulse 118 H 06/03/22 17:47 Resp 14 06/03/22 15:05 BP 100/72 06/03/22 15:05 Pulse Ox 94 06/03/22 15:05 06/03/22 06/03/22 06/03/22 06:59 14:59 22:59 Intake Total 300 / 768 353.982 / 353.982 830 / 1183.982 Output Total 600 / 975 950 / 950 Balance -300 / -207 353.982 / 353.982 -120 / 233.982 Weight last 48 hrs Weight 120.474 kg Weight 112.99 kg Weight 127.006 kg Physical Exam Const: COMMON NORMALS: patient oriented x3 HENMT: COMMON NORMALS: normocephalic and atraumatic HEAD & SCALP: normocephalic and atraumatic Resp: COMMON NORMALS: clear to auscultation bilaterally AUSCULTATION: clear to auscultation bilaterally Cardio: COMMON NORMALS: Peripheral pulses 2+ throughout PERIPHERAL PULSES: Peripheral pulses 2+ throughout OTHER: Irregularly irregular rhythm , S1-S2 variable intensity GI: COMMON NORMALS: Normal to inspection, nondistended, normoactive bowel sounds present, Soft to palpation, non-tender, No hepatosplenomegaly present and no masses AUSCULTATION: Yes normoactive bowel sounds PALPATION: Yes Soft to palpation and Yes No hepatosplenomegaly present RECTAL EXAM: deferred Extremity: COMMON NORMALS: no clubbing, cyanosis or edema and no pedal edema Neuro: COMMON NORMALS: patient oriented x3 Data : 06/03/22 08:00 06/03/22 08:00 Micro: Microbiology 06/02/22 00:05 Blood Culture - Preliminary Blood Staphylococcus sp coag neg 06/03/22 11:20 Blood Culture - Preliminary Blood SPECIMEN COLLECTED 06/03/22 08:00 Blood Culture - Preliminary Blood SPECIMEN COLLECTED 06/01/22 06:25 Blood Culture - Preliminary Blood NEGATIVE TO DATE A&P Assessment and plan (1) Paroxysmal atrial fibrillation with RVR: A. fib with RVR, with Blood pressure soft on presentation, would not tolerate calcium channel humberto or beta-humberto.Started on amiodarone drip. Continue. Discussed with her anticoagulation for stroke risk prevention as well, to which she is agreeable. Denies any bleeding. Start with Lovenox for now. Monitor blood counts. Check TSH. Replace potassium. Magnesium is okay. Status: Acute (2) UTI (urinary tract infection): She is not sure why she has a Alvarez catheter or how long ago it was placed. Alvarez catheter to be changed. Follow-up urine culture. Continue Rocephin. With leukocytosis, tachycardia, assess CT abdomen pelvis for any sign of pyelonephritis. Status: Acute (3) Declining functional status: Reports has been getting weaker to the point she cannot ambulate. She is very disheveled with reported poor living conditions, also covered with feces, on her legs, as well as Alvarez catheter. She is not sure how long the Alvarez catheter has been in but appears old with very purulent urine, reported to be covered with feces. Now also with decubitus ulcer. She is now doing well at home. We will request PT, OT evaluation, case management consultation. Treat UTI. Check TSH. Status: Acute (4) Unable to ambulate: As above Status: Acute (5) Physical deconditioning: As above Status: Acute (6) Abdominal mass: With history of colon cancer with partial colectomy, palpable mass in lower abdomen to the left of midline. Assessed plain CT abdomen pelvis. In case of recurrence of colon cancer she states would not pursue additional treatment, would consider hospice care. Status: Acute (7) Port-A-Cath in place: She asks about removal of the Port-A-Cath. Perhaps this could be considered after acute conditions are taken care of. Status: Acute (8) Smoking addiction: Encourage cessation. Nicotine replacement. Status: Acute Plan COPD, not in exacerbation. Reports uses oxygen as needed. SARAH BETH, intolerant of CPAP Morbid obesity History of colon cancer Attestations Medical Necessity Statement*: Patient needs to be in hospital management of A. fib with RVR. 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
[2022-06-03] MEDS: cefTRIAXone 1,000 MG in sodium chloride 0.9% (plus) 50 ML 100 MG IV (20:07)
[2022-06-03] MEDS: trazodone 50 mg Tablet PO (20:11)
[2022-06-04] VITALS (22 sets, daily range): BP systolic 84–147; BP diastolic 58–76; PULSE 58–105; RESP 10–22; TEMP 36.6–36.7; O2SAT 89–99
--- NOTE | 2022-06-04 00:17 | PC.NURSE ---
i reported low 02 89 to nurse
[2022-06-04] MEDS: enoxaparin 150 mg/mL Syringe 130 MG SUBCUT ×2 (04:13→18:00)
[2022-06-04 06:26] LABS: Basophils # 0.1 10^3/uL (0.0-0.1); Basophils % 0.5 %; Eosinophils # 0.1 10^3/uL (0.0-0.8); Eosinophils % 1.1 %; Hematocrit 33.2 % (37.0-47.0); Hemoglobin 10.7 g/dL (11.5-15.3); Lymphocytes # 1.9 10^3/uL (0.8-4.8); Mean Corpuscular HGB Conc 32.2 g/dL (30.0-36.0); Mean Corpuscular Hemoglobin 28.5 pg (28.0-34.0); Mean Corpuscular Volume 88.5 fl (81-99); Mean Platelet Volume 9.6 fL (7.4-10.4); Monocytes # 0.5 10^3/uL (0.2-0.9); Monocytes % 5.3 %; Neutrophils # 7.34 10^3/uL (1.8-7.7); Neutrophils % 73.6 %; Nucleated Red Blood Cells % 0 %; Platelet Count 313 10^3/cmm (130-400); Red Blood Count 3.75 10^6/uL (4.1-5.3); Red Cell Distribution Width 17.2 % (12.1-15.1)
[2022-06-04 06:50] LABS: Alanine Aminotransferase 7 U/L (0-33); Albumin Level 2.4 g/dL (3.5-5.2); Alkaline Phosphatase 84 IU/L (35-105); Aspartate Amino Transferase 10 U/L (0-32); Blood Urea Nitrogen 5 mg/dL (8-23); Calcium 8.6 mg/dL (8.5-10.5); Carbon Dioxide 29 mmol/L (22-29); Chloride 97 mmol/L (98-107); Globulin 2.6 g/dL (1.3-4.6); Glucose 118 mg/dL (65-115); Osmolality Calculated 278 mOsm/kg (285-295); Sodium 135 mmol/L (136-145); Total Bilirubin 0.2 mg/dL (0.15-1.2)
[2022-06-04 06:52] LABS: Anion Gap 12.6 (5-19); Potassium 3.6 mmol/L (3.5-5.1)
[2022-06-04] MEDS: topiramate 25 mg Tablet PO ×2 (08:19→18:00)
[2022-06-04] MEDS: oxybutynin 5 mg Tablet 10 MG PO (08:19)
[2022-06-04] MEDS: amiodarone 200 mg Tablet 400 MG PO ×2 (08:19→15:11)
[2022-06-04] MEDS: nicotine 21 mg Patch 1 PATCH TRANSDERMA (08:20)
[2022-06-04] MEDS: citalopram 20 mg Tablet PO (08:20)
--- NOTE | 2022-06-04 11:18 | PC.NURSE ---
Reported to provider patient is not waking up appropriatly this am no new orders until prvider rounded asking to stop morphine to allow patient to wake up a bit more patient awake and answer questions appropriatly and reports generalized pain is tearful with family present at bedside provider to bedside with instructions to resume morphine at 2mg IVP Q4H
--- NOTE | 2022-06-04 12:58 | PC.NURSE ---
patient continues to have pain with flacc of 10/10 pain reported to provider no further instructions received
--- NOTE | 2022-06-04 13:50 | P.PN_ITS ---
Subjective Subjective: Patient was seen and examined this morning, overall she is doing better, converted to normal sinus rhythm today, amiodarone drip has been stopped, since the heart rate is upper 50s, will hold on the evening dose of amiodarone. She will be switched to amiodarone p.o. 400 mg twice daily from tomorrow. Medications: Medication Review Details: Generic Name Dose Route Start Last Admin Trade Name Augustina PRN Reason Stop Dose Admin Amiodarone HCl 400 mg 06/02/22 09:00 06/03/22 16:40 Amiodarone 200 M g Tablet PO 400 mg TID LYNN Administration Citalopram Hydrobr omide 20 mg 06/02/22 09:00 06/03/22 08:25 Citalopram 20 Mg Tablet PO 20 mg DAILY LYNN Administration Enoxaparin Sodium 130 mg 06/02/22 04:24 06/03/22 17:33 Enoxaparin 150 M g/Ml Syringe SUBCUT 130 mg Q12H LYNN Administration Amiodarone HCl 900 mg/ 518 mls @ 0 mls/h r 06/02/22 00:15 06/03/22 13:07 Dextrose/ IV Misce llaneous IV 0.5 mg/min Supplies .Q0M LYNN 17.27 mls/hr Administration Protocol Per Protocol Ceftriaxone Sodium 1,000 mg/ 50 mls @ 100 mls/ hr 06/02/22 20:00 06/02/22 20:30 Sodium Chloride IV Infused Q24H LYNN Infusion Protocol Nicotine 1 patch 06/02/22 09:00 06/03/22 08:26 Nicotine 21 Mg P atch TRANSDERMA 1 patch DAILY LYNN Administration Oxybutynin Chlorid e 10 mg 06/02/22 09:00 06/03/22 08:25 Oxybutynin 5 Mg Tablet PO 10 mg DAILY LYNN Administration Fluticasone/Salmet shankar 1 puff 06/02/22 09:00 06/03/22 10:00 Fluticasone-Salm eterol 250-50 Disk us INHALATION 1 puff BID LYNN Administration Topiramate 25 mg 06/02/22 09:00 06/03/22 08:25 Topiramate 25 Mg Tablet PO 25 mg BID LYNN Administration Trazodone HCl 50 mg 06/02/22 21:00 06/02/22 20:00 Trazodone 50 Mg Tablet PO 50 mg BEDTIME LYNN Administration Vitals/I&O/Wt Last Vital Signs Temp 98 F 06/04/22 12:00 Pulse 95 06/04/22 12:00 Resp 12 06/04/22 12:00 BP 102/76 06/04/22 12:00 Pulse Ox 96 06/04/22 12:00 06/03/22 06/04/22 06/04/22 22:59 06:59 14:59 Intake Total 1221.605 / 1575.587 267.18 / 9772.806 4775 / 1040 Output Total 950 / 950 1300 / 2250 Balance 271.605 / 625.587 -1032.82 / -491.750 6695 / 1040 Weight last 48 hrs Weight 121.653 kg Weight 120.474 kg Physical Exam Const: COMMON NORMALS: patient oriented x3 HENMT: COMMON NORMALS: normocephalic and atraumatic HEAD & SCALP: normocephalic and atraumatic Resp: COMMON NORMALS: clear to auscultation bilaterally AUSCULTATION: clear to auscultation bilaterally Cardio: COMMON NORMALS: Peripheral pulses 2+ throughout PERIPHERAL PULSES: Peripheral pulses 2+ throughout OTHER: Irregularly irregular rhythm , S1-S2 variable intensity GI: COMMON NORMALS: Normal to inspection, nondistended, normoactive bowel sounds present, Soft to palpation, non-tender, No hepatosplenomegaly present and no masses AUSCULTATION: Yes normoactive bowel sounds PALPATION: Yes Soft to palpation and Yes No hepatosplenomegaly present RECTAL EXAM: deferred Extremity: COMMON NORMALS: no clubbing, cyanosis or edema and no pedal edema Neuro: COMMON NORMALS: patient oriented x3 Data : 06/04/22 06:19 06/04/22 06:19 Micro: Microbiology 06/02/22 00:05 Blood Culture - Preliminary Blood Staphylococcus sp coag neg 06/03/22 11:20 Blood Culture - Preliminary Blood NEGATIVE TO DATE 06/03/22 08:00 Blood Culture - Preliminary Blood NEGATIVE TO DATE A&P Assessment and plan (1) Paroxysmal atrial fibrillation with RVR: A. fib with RVR, with Blood pressure soft on presentation, would not tolerate calcium channel humberto or beta-humberto.Started on amiodarone drip. Continue. Discussed with her anticoagulation for stroke risk prevention as well, to which she is agreeable. Denies any bleeding. Start with Lovenox for now. Monitor blood counts. Check TSH. Replace potassium. Magnesium is okay. Status: Acute (2) UTI (urinary tract infection): She is not sure why she has a Alvarez catheter or how long ago it was placed. Alvarez catheter to be changed. Follow-up urine culture. Continue Rocephin. With leukocytosis, tachycardia, assess CT abdomen pelvis for any sign of pyelonephritis. Status: Acute (3) Declining functional status: Reports has been getting weaker to the point she cannot ambulate. She is very disheveled with reported poor living conditions, also covered with feces, on her legs, as well as Alvarez catheter. She is not sure how long the Alvarez catheter has been in but appears old with very purulent urine, reported to be covered with feces. Now also with decubitus ulcer. She is now doing well at home. We will request PT, OT evaluation, case management consultation. Treat UTI. Check TSH. Status: Acute (4) Unable to ambulate: As above Status: Acute (5) Physical deconditioning: As above Status: Acute (6) Abdominal mass: With history of colon cancer with partial colectomy, palpable mass in lower abdomen to the left of midline. Assessed plain CT abdomen pelvis. In case of recurrence of colon cancer she states would not pursue additional treatment, would consider hospice care. Status: Acute (7) Port-A-Cath in place: She asks about removal of the Port-A-Cath. Perhaps this could be considered after acute conditions are taken care of. Status: Acute (8) Smoking addiction: Encourage cessation. Nicotine replacement. Status: Acute Plan COPD, not in exacerbation. Reports uses oxygen as needed. SARAH BETH, intolerant of CPAP Morbid obesity History of colon cancer Attestations Medical Necessity Statement*: Patient needs to the hospital for management of A. fib. 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
--- NOTE | 2022-06-04 15:53 | ECG_ITS ---
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 Measurements Intervals [place] Rate: 80 P: 83 NH: 199 QRS: -18 QRSD: 118 T: 60 QT: 367 QTc: 426 Interpretive Statements SINUS RHYTHM LOW QRS VOLTAGE IN EXTREMITY LEADS [QRS DEFLECTION < 0.5 mV IN LIMB LEADS] PATTERN CONSISTENT WITH PULMONARY DISEASE MODERATE INTRAVENTRICULAR CONDUCTION DELAY [110+ ms QRS DURATION] Compared to ECG 06/02/2022 04:44:16 Low QRS voltage now present Intraventricular conduction delay now present Atrial fibrillation no longer present T-wave abnormality no longer present Electronically Signed On 06-04-2022 21:17:00 CDT by Be Sawant M.D. [email or web address]
[2022-06-04] MEDS: trazodone 50 mg Tablet PO (20:27)
[2022-06-04] MEDS: cefTRIAXone 1,000 MG in sodium chloride 0.9% (plus) 50 ML 100 MG IV (20:27)
[2022-06-05 02:33] LABS: Basophils # 0.1 10^3/uL (0.0-0.1); Basophils % 0.5 %; Eosinophils % 0.3 %; Hematocrit 35.1 % (37.0-47.0); Hemoglobin 10.7 g/dL (11.5-15.3); Lymphocytes # 1.9 10^3/uL (0.8-4.8); Lymphocytes % 15.8 %; Mean Corpuscular HGB Conc 30.5 g/dL (30.0-36.0); Mean Corpuscular Hemoglobin 28.2 pg (28.0-34.0); Mean Corpuscular Volume 92.4 fl (81-99); Mean Platelet Volume 9.9 fL (7.4-10.4); Monocytes # 0.6 10^3/uL (0.2-0.9); Monocytes % 4.9 %; Neutrophils # 9.57 10^3/uL (1.8-7.7); Nucleated Red Blood Cells % 0 %; Platelet Count 330 10^3/cmm (130-400); Red Cell Distribution Width 17.5 % (12.1-15.1); White Blood Count 12.3 10^3/uL (4.0-10.0)
[2022-06-05 02:57] LABS: Alanine Aminotransferase 6 U/L (0-33); Albumin Level 2.8 g/dL (3.5-5.2); Alkaline Phosphatase 83 IU/L (35-105); Anion Gap 10.8 (5-19); Aspartate Amino Transferase 12 U/L (0-32); Blood Urea Nitrogen 6 mg/dL (8-23); Calcium 8.8 mg/dL (8.5-10.5); Carbon Dioxide 31 mmol/L (22-29); Chloride 95 mmol/L (98-107); Globulin 2.7 g/dL (1.3-4.6); Glucose 116 mg/dL (65-115); Osmolality Calculated 275 mOsm/kg (285-295); Potassium 3.8 mmol/L (3.5-5.1); Sodium 133 mmol/L (136-145); Total Bilirubin 0.2 mg/dL (0.15-1.2); Total Protein 5.5 g/dL (6.6-8.7)
[2022-06-05 04:00] VITALS: BP 114/82; PULSE 91; RESP 12; O2SAT 94
[2022-06-05 06:00] VITALS: PULSE 86
[2022-06-05] MEDS: enoxaparin 150 mg/mL Syringe 130 MG SUBCUT (06:23)
[2022-06-05 08:00] VITALS: BP 110/66; PULSE 75; PULSE 85; RESP 13; RESP 17; TEMP 36.4; O2SAT 93; O2SAT 94
[2022-06-05] MEDS: amiodarone 200 mg Tablet 400 MG PO (09:37)
[2022-06-05] MEDS: oxybutynin 5 mg Tablet 10 MG PO (09:37)
[2022-06-05] MEDS: citalopram 20 mg Tablet PO (09:37)
[2022-06-05] MEDS: nicotine 21 mg Patch 1 PATCH TRANSDERMA (09:37)
[2022-06-05] MEDS: topiramate 25 mg Tablet PO (09:37)
[2022-06-05 11:28] LABS: Bacillus cereus group Not Detected (NOT DETECT); Bacillus subtillis group Not Detected (NOT DETECT); Corynebacterium Not Detected (NOT DETECT); Cutibacterium acnes (P.acnes) Not Detected (NOT DETECT); Enterococcus Not Detected (NOT DETECT); Enterococcus faecalis Not Detected (NOT DETECT); Enterococcus faecium Not Detected (NOT DETECT); Lactobacillus species Not Detected (NOT DETECT); Listeria Not Detected (NOT DETECT); Listeria monocytogenes Not Detected (NOT DETECT); Micrococcus Not Detected (NOT DETECT); Pan Candida Not Detected (NOT DETECT); Pan Gram-Negative Not Detected (NOT DETECT); Staphylococcus epidermidis Detected (NOT DETECT); Staphylococcus lugdunensis Not Detected (NOT DETECT); Staphylococcus species Detected (NOT DETECT); Streptococcus agalactiae Not Detected (NOT DETECT); Streptococcus anginosus group Not Detected (NOT DETECT); Streptococcus pneumoniae Not Detected (NOT DETECT); Streptococcus pyogenes Not Detected (NOT DETECT); Streptococcus species Not Detected (NOT DETECT); mecA Not Detected (NOT DETECT); mecC Not Detected (NOT DETECT)
--- NOTE | 2022-06-05 11:51 | PC.SOCIAL ---
IMM update IMM updated with patient. Copy PG 2 provided. Initialled, dated, timed, and placed in chart.
[2022-06-05 12:00] VITALS: BP 89/59; PULSE 106; RESP 118; TEMP 36.6; O2SAT 94
--- NOTE | 2022-06-05 13:42 | PM.DCS ---
Discharge Providers Date of Admission: 06/02/22 04:24 Date of Discharge: June 05, 2022 Attending Provider at Admission: Tapan Concepcion Attending Provider at Discharge: Ajay Deal MD Diagnoses at Discharge Discharge Diagnosis (1) Paroxysmal atrial fibrillation with RVR: (2) UTI (urinary tract infection): (3) Declining functional status: (4) Unable to ambulate: (5) Physical deconditioning: (6) Abdominal mass: (7) Port-A-Cath in place: (8) Smoking addiction: Reason for Visit Reason for Visit: Failure to thrive Hospital Course Hospital Course 66-year-old lady with history of colon cancer, partial colectomy, came into ER due to being unable to take care of herself at home, noted to be disheveled, covered in feces, with Martinez catheter in place with purulent Martinez drainage and covered in feces as well.? In ER found to be in A. fib with RVR, she was started on amidarone drip as her blood pressure was soft as well as therapeutic ac, during the hospital stay she was cotinued on amidarone drip as well as oral amiodarone,she converted to NSR and was discharged on PO amidarone 400 mg BID for next 3 days followed by 400 mg po amiodarone daily ( aim is to acheive the 10 gm loading dose ), she was educated regarding the anticoagulation risk and benefits, and was told to watch for any possible bleeding and was also educated on symptoms of hypotension.She was in agreement to continue on po Ac she was discharged on eliquis. 2D Echo done during the hospital stay showed: Grossly LV systolic function is moderately reduced. Diastolic function is indeterminate because of atrial fibrillation.Trace mitral regurgitation. Valvular structures not well-visualized. she was continued on po lasix 40 daily. she was also managed for UTI she was on rochepin, martinez catheter was changed on admission but was discontinued on discharge, patient denied C.T abdomen and pelvis.Patient responeded well to above medical management and was discharged in stable condition to home.Patient wish to follow cardiology as outpatient. Physical Exam Const: COMMON NORMALS: patient oriented x3 HENMT: COMMON NORMALS: normocephalic and atraumatic HEAD & SCALP: normocephalic and atraumatic Resp: COMMON NORMALS: clear to auscultation bilaterally AUSCULTATION: clear to auscultation bilaterally Cardio: COMMON NORMALS: Peripheral pulses 2+ throughout PERIPHERAL PULSES: Peripheral pulses 2+ throughout OTHER: S1S2 of normal intensity no MRG GI: COMMON NORMALS: Normal to inspection, nondistended, normoactive bowel sounds present, Soft to palpation, non-tender, No hepatosplenomegaly present and no masses AUSCULTATION: Yes normoactive bowel sounds PALPATION: Yes Soft to palpation and Yes No hepatosplenomegaly present RECTAL EXAM: deferred Extremity: COMMON NORMALS: no clubbing, cyanosis or edema and no pedal edema Neuro: COMMON NORMALS: patient oriented x3 Discharge Data Studies Completed and Pending Completed Studies During Hospitalization Category Date Time Status CT head wo con* [id number] Urgent Cat Scan 06/01/22 20:48 Completed XR chest 1V portable [id number] Urgent Exams 06/01/22 20:41 Completed XR elbow RT min 3V* [id number] Stat Exams 06/01/22 20:47 [place] [id number] Routine Ultrasound 06/02/22 04:24 Completed CV. echo complete* [id number] Routine Ultrasound 06/02/22 08:25 Completed Pending at discharge Category Date Time Status Blood Culture AM LABS Lab 06/03/22 11:20 Results Blood Culture Stat Lab 06/01/22 06:25 Results Radiology Impressions Chest X-Ray 06/01/22 20:41 IMPRESSION: Negative for infiltrate Elbow X-Ray 06/01/22 20:47 IMPRESSION: No acute findings. Head CT 06/01/22 20:48 IMPRESSION: No acute intracranial abnormality. Laboratory Results WBC 12.3 10^3/uL (4.0-10.0) H 06/05/22 02:17 RBC 3.80 10^6/uL (4.1-5.3) L 06/05/22 02:17 Hgb 10.7 g/dL (11.5-15.3) L 06/05/22 02:17 Hct 35.1 % (37.0-47.0) L 06/05/22 02:17 MCV 92.4 fl (81-99) 06/05/22 02:17 MCH 28.2 pg (28.0-34.0) 06/05/22 02:17 MCHC 30.5 g/dL (30.0-36.0) D 06/05/22 02:17 RDW 17.5 % (12.1-15.1) H 06/05/22 02:17 Plt Count 330 10^3/cmm (130-400) 06/05/22 02:17 MPV 9.9 fL (7.4-10.4) 06/05/22 02:17 Neut % (Auto) 78.0 % 06/05/22 02:17 Lymph % (Auto) 15.8 % 06/05/22 02:17 [place] % (Auto) 4.9 % 06/05/22 02:17 Eos % (Auto) 0.3 % 06/05/22 02:17 Baso % (Auto) 0.5 % 06/05/22 02:17 Neut # (Auto) 9.57 10^3/uL (1.8-7.7) H 06/05/22 02:17 Lymph # (Auto) 1.9 10^3/uL (0.8-4.8) 06/05/22 02:17 [place] # (Auto) 0.6 10^3/uL (0.2-0.9) 06/05/22 02:17 Eos # (Auto) 0.0 10^3/uL (0.0-0.8) 06/05/22 02:17 Baso # (Auto) 0.1 10^3/uL (0.0-0.1) 06/05/22 02:17 Nucleated RBC % (auto) 0 % 06/05/22 02:17 Nucleated RBCs # 0.0 /100WBC 06/05/22 02:17 PT 13.00 SECONDS (12.1-14.9) 06/01/22 23:44 INR 0.95 (0.8-1.2) 06/01/22 23:44 Sodium 133 mmol/L (136-145) L 06/05/22 02:17 Potassium 3.8 mmol/L (3.5-5.1) 06/05/22 02:17 Chloride 95 mmol/L (98-107) L 06/05/22 02:17 Carbon Dioxide 31 mmol/L (22-29) H 06/05/22 02:17 Anion Gap 10.8 (5-19) 06/05/22 02:17 BUN 6 mg/dL (8-23) L 06/05/22 02:17 Creatinine 0.3 mg/dL (0.5-0.9) L 06/05/22 02:17 GFR Calculation 224.0 mL/min (90-130) H 06/05/22 02:17 Glucose 116 mg/dL (65-115) H 06/05/22 02:17 Calculated Osmolality 275 mOsm/kg (285-295) L 06/05/22 02:17 Lactate 1.5 mmol/L (0.5-2.2) 06/01/22 23:44 Calcium 8.8 mg/dL (8.5-10.5) 06/05/22 02:17 Magnesium 2.0 mg/dL (1.7-2.3) 06/01/22 23:44 Total Bilirubin 0.2 mg/dL (0.15-1.2) 06/05/22 02:17 AST 12 U/L (0-32) 06/05/22 02:17 ALT 6 U/L (0-33) 06/05/22 02:17 Alkaline Phosphatase 83 IU/L (35-105) 06/05/22 02:17 Creatine Kinase 22 U/L (26-192) L 06/01/22 23:44 Troponin T Baseline 69 ng/L (0-10) H 06/01/22 23:44 Troponin T 120 Minute 65.37 ng/L (0-10) H 06/02/22 01:34 Delta Troponin T -3.63 ABS# (0-10) L 06/02/22 01:34 Troponin T Hi Sens 6Hr 62.03 ng/L (0-10) H 06/02/22 06:25 Troponin T Hi Sens 6Hr Delta -6.97 ng/L (0-12) L 06/02/22 06:25 Total Protein 5.5 g/dL (6.6-8.7) L 06/05/22 02:17 Albumin 2.8 g/dL (3.5-5.2) L 06/05/22 02:17 Globulin 2.7 g/dL (1.3-4.6) 06/05/22 02:17 TSH 1.23 uIU/mL (0.27-4.20) 06/03/22 08:00 Urine Color Yellow (Yellow) 06/01/22 23:35 Urine Appearance Cloudy (CLEAR) 06/01/22 23:35 Urine pH 5 (5-7) 06/01/22 23:35 Ur Specific [place] 1.025 (1.005-1.030) 06/01/22 23:35 Urine Protein 2+ (Negative) H 06/01/22 23:35 Urine Glucose (UA) Norm (Normal) 06/01/22 23:35 Urine Ketones Negative (Negative) 06/01/22 23:35 Urine Blood 3+ (Negative) H 06/01/22 23:35 Urine Nitrate Negative (Negative) 06/01/22 23:35 Urine Bilirubin 1+ (Negative) H 06/01/22 23:35 Urine Urobilinogen 4 mg/dL (Negative) H 06/01/22 23:35 Ur Leukocyte Esterase 2+ (Negative) H 06/01/22 23:35 Urine RBC 5-10 /hpf (0-2) H 06/01/22 23:35 Urine WBC Too numerous to cnt /hpf (0-5) H 06/01/22 23:35 Ur Squamous Epith Cells 25-40 /hpf (0-5) H 06/01/22 23:35 Calcium Oxalate Crystal 0-4 /hpf H 06/01/22 23:35 Amorphous Sediment Not Reportable 06/01/22 23:35 Urine Bacteria 4+ /hpf (NONE) H 06/01/22 23:35 Vitals Last Vital Signs Temp 98 F 06/05/22 12:00 Pulse 106 H 06/05/22 12:00 Resp 118 H 06/05/22 12:00 BP 89/59 06/05/22 12:00 Pulse Ox 94 06/05/22 12:00 Discharge Plan Discharge Patient Disposition: Home Condition: Stable Prescriptions: New Eliquis 5 mg tablet 5 mg PO BID Qty: 60 3RF amiodarone 400 mg tablet 400 mg PO DAILY 30 Days Qty: 30 0RF Rx Instructions: 400 MG PO BID For additional 3 days and then 400 mg po daily Continued trazodone 50 mg Tablet 50 mg PO DAILY 0RF oxybutynin chloride 10 mg Tablet Extended Release 24 Hr 10 mg PO DAILY 0RF Spiriva with HandiHaler 18 mcg Capsule, W/Inhalation Device 1 cap INHALATION DAILY 0RF Rx Instructions: puncture 1 cap using device; one dose = 2 inhalations furosemide 40 mg Tablet 40 mg PO DAILY 30 Days Qty: 30 3RF citalopram 20 mg Tablet 20 mg PO DAILY Qty: 30 0RF Symbicort 160-4.5 mcg/actuation Hfa Aerosol Inhaler 2 puff INHALATION BID 30 Days Qty: 10.2 3RF topiramate 25 mg Tablet 25 mg PO BID 30 Days Qty: 60 0RF Discontinued metoprolol tartrate 25 mg Tablet 25 mg PO DAILY 0RF Discharge Orders: Discharge Order (Routine); Ordered 06/05/22 Ordered By: Ajay Deal Other Ambulatory Orders: DME: Miscellaneous (Order) Location: None Selected Ordered By: Ajay Deal DME: Shower Chair (Order) Location: None Selected Ordered By: Ajay Deal Referrals: Gregory Weiner MD [Physician] - 2 weeks Patient Instructions: Amiodarone (By mouth), Apixaban (By mouth) (Eliquis), A-fib (Atrial Fibrillation) (DC), Urinary Tract Infection in Women (DC), Opioid Safety Discharge Attestations Time Spent in Discharge Care*: less than 30 min Quality Metrics Clinical Quality Measures [ No reported AMI, CVA or VTE this stay] Coding Level of Care Code Acute Chg FW DC note Exam Detailed Diagnoses Paroxysmal atrial fibrillation with RVR I48.0 UTI (urinary tract infection) N39.0 Declining functional status R53.81 Unable to ambulate R26.2 Physical deconditioning R53.81 Abdominal mass R19.00 Port-A-Cath in place Z95.828 Smoking addiction F17.200
[2022-06-05 14:30] VITALS: BP 89/59; PULSE 106; RESP 118; TEMP 36.6; O2SAT 94
--- NOTE | 2022-06-05 14:40 | PC.NURSE ---
Discharge Note Patient discharged to home via ambulance accompanied by ambulance personal. Discharge instructions reviewed with patient and/or customer success representative. Mobile pharmacy medications and/or prescriptions provided. Belongings/home medications returned.
== END 2022-06-05 14:40 | disposition home or self-care (01) | DRG 309 ==
LOC: ER 06-02 00:44 → ICU 06-02 04:32 → MEDSURG 06-03 13:26
PROVIDERS: Admitting Provider Internal Medicine; Emergency Provider Emergency Medicine; Visit Provider Internal Medicine
DX: I48.0 Paroxysmal atrial fibrillation (principal); T83.511A Infection and inflammatory reaction due to indwelling urethral catheter, initial encounter; Z86.73 Personal history of transient ischemic attack (TIA), and cerebral infarction without residual deficits; Z74.01 Bed confinement status; Y73.8 Miscellaneous gastroenterology and urology devices associated with adverse incidents, not elsewhere classified; L89.152 Pressure ulcer of sacral region, stage 2; Z85.038 Personal history of other malignant neoplasm of large intestine; Z90.49 Acquired absence of other specified parts of digestive tract; J44.9 Chronic obstructive pulmonary disease, unspecified; G47.33 Obstructive sleep apnea (adult) (pediatric); Z95.828 Presence of other vascular implants and grafts; F17.200 Nicotine dependence, unspecified, uncomplicated; R19.00 Intra-abdominal and pelvic swelling, mass and lump, unspecified site; E66.01 Morbid (severe) obesity due to excess calories; Z68.39 Body mass index [BMI] 39.0-39.9, adult; Z79.51 Long term (current) use of inhaled steroids
CPT/HCPCS: 36415; 70450; 71045; 73080; 80053; 81001; 82550; 83605; 83735; 84443; 84484; 85025; 85610; 87040; 87150; 87205; 93005; 93306; 93971; 94640; 94760; 96365; 96367; 96372; 96375; 96376; 97161; 97167; 97530; 97535; 99285; J0282; J0696; J1642; J1650; J2270; J2405; J7030; J7040; J7060